=== PATIENT | female | born 1965 | race Caucasian/White ===

== ENCOUNTER 2017-11-02 08:34 | Emergency (ER) | payer SELFPAY | END 2017-11-02 09:16 | disposition home or self-care (01) | PROVIDERS: Emergency Provider Emergency Medicine; PCP Physician Assistant; Visit Provider Emergency Medicine | DX: M79.641 Pain in right hand (principal); T73.3XXA Exhaustion due to excessive exertion, initial encounter | CPT/HCPCS: 99282 ==

== ENCOUNTER → 2018-01-29 07:51 | Outpatient (CLI) | payer OTHER, SELFPAY ==
[2018-01-29 09:00] LABS: Alanine Aminotransferase 37 IU/L (9-52); Albumin 4.4 g/dL (3.5-5.0); Albumin Globulin Ratio 1.6 (1.0-2.8); Alkaline Phosphatase 34 U/L (38-126); Aspartate Aminotransferase 30 IU/L (14-36); Bilirubin Total 0.9 mg/dL (0.2-1.3); Blood Urea Nitrogen 17 mg/dL (7-17); Calcium 9.6 mg/dL (8.4-10.2); Carbon Dioxide 29 mmol/L (22-32); Chloride 105 mmol/L (98-107); Cholesterol 219 mg/dL (140-199); Estimated Glomerular Filt Rate > 60.0 mL/min (>60); Globulin 2.8 g/dL (1.7-4.1); Glucose 91 mg/dL (70-100); HDL Cholesterol 59 mg/dL (40-60); HEMOLYSIS < 15 (0-50); LDL Cholesterol Calculated 148 mg/dL (<100); Potassium 3.9 mmol/L (3.4-5.1); Sodium 143 mmol/L (137-145); Total Protein 7.2 g/dL (6.3-8.2); Triglycerides 62 mg/dL (35-150)
[2018-01-29 10:01] LABS: Thyroid Stimulating Hormone 1.42 uIU/mL (0.47-4.68)
== END ==
PROVIDERS: PCP Physician Assistant; Visit Provider Physician Assistant
DX: Z82.49 Family history of ischemic heart disease and other diseases of the circulatory system (principal)
CPT/HCPCS: 36415; 80053; 80061; 84443

== ENCOUNTER → 2018-02-05 13:18 | Outpatient (CLI) | payer OTHER, SELFPAY ==
--- NOTE | 2018-02-05 13:20 | DI.MG.S_ITS ---
BILATERAL DIGITAL DIAGNOSTIC MAMMOGRAM 3D/2D: 02/05/2018 CLINICAL: Right breast mass. Comparison is made to exams dated: 11/21/2016 mammogram, 12/16/2014 mammogram, and 08/26/2013 mammogram - [facility]. The tissue of both breasts is extremely dense, which lowers the sensitivity of mammography. There is a 1.1 cm oval equal density mass with an obscured and circumscribed margin in the right breast at 11 o'clock anterior depth. This correlates as palpated. No other significant masses, calcifications, or other findings are seen in either breast. IMPRESSION: INCOMPLETE: NEEDS ADDITIONAL IMAGING EVALUATION The 1.1 cm oval equal density mass in the right breast is indeterminate. An ultrasound is recommended. This exam was interpreted at Station ID: [id number]. NOTE: For mammograms, a report in lay terms will be sent to the patient. Approximately 15% of breast malignancies will not be visualized mammographically. In the management of a palpable breast mass, a negative mammogram must not discourage biopsy of a clinically suspicious lesion. Electronically Signed By: Ajay kwan/junior:02/05/2018 16:54:09 copy to: PHIL SIDDIQI BI-RADS Category 0: Incomplete [id number]
--- NOTE | 2018-02-05 13:20 | DI.US.S_ITS ---
ULTRASOUND OF RIGHT BREAST: 02/05/2018 CLINICAL: Palpable right breast lump. Comparison is made to exams dated: 02/05/2018 mammogram, 11/21/2016 mammogram, and 12/16/2014 mammogram - [facility]. Color flow ultrasound of the right breast was performed. Earl scale images of the real-time examination were reviewed. There are multiple benign cysts in the uppr outer right breast some of which correspond to the clinical area of concern. No sonographic evidence of solid mass. IMPRESSION: NEGATIVE There is no sonographic evidence of malignancy. Clinical area of concern corresponds to benign cysts. A 1 year screening mammogram is recommended. This exam was interpreted at Station ID: [id number]. Electronically Signed By: Ajay Tatum M.D. cj/:02/05/2018 16:55:20 copy to: PHIL MONTOYA letter sent: Normal Exam Ultrasound BI-RADS: 1 Negative
== END ==
PROVIDERS: Family Provider Physician Assistant; PCP Physician Assistant; Visit Provider Physician Assistant
DX: R92.8 Other abnormal and inconclusive findings on diagnostic imaging of breast (principal); N60.01 Solitary cyst of right breast; N64.4 Mastodynia
CPT/HCPCS: 76642; 77066; G0279

== ENCOUNTER → 2018-05-24 07:35 | Outpatient (CLI) | payer OTHER, SELFPAY ==
[2018-05-24 10:52] LABS: Vitamin D 25 Hydroxy (D3) 23.8 ng/mL (30.0-100.0)
[2018-05-24 12:15] LABS: Aspartate Aminotransferase 23 IU/L (14-36); Cholesterol 152 mg/dL (140-199); HDL Cholesterol 63 mg/dL (40-60); LDL Cholesterol Calculated 78 mg/dL (<100); Triglycerides 55 mg/dL (35-150)
[2018-05-24 13:02] LABS: Vitamin B12 520 pg/mL (239-931)
== END ==
PROVIDERS: Family Provider Physician Assistant; PCP Physician Assistant; Visit Provider Physician Assistant
DX: E56.9 Vitamin deficiency, unspecified (principal); R10.13 Epigastric pain; R53.1 Weakness; R53.83 Other fatigue; E78.5 Hyperlipidemia, unspecified
CPT/HCPCS: 36415; 80061; 82306; 82607; 84450

== ENCOUNTER → 2019-08-12 15:40 | Outpatient (CLI) | payer OTHER, SELFPAY ==
--- NOTE | 2019-08-12 15:43 | DI.CT.S_ITS ---
PROCEDURE: CT HEAD/BRAIN WO CON INDICATIONS: Frequent headaches - hx of AV malformation brain TECHNIQUE: Noncontrast 4.5 mm thick angled axial sections acquired from the foramen magnum to the vertex, with coronal and sagittal reformats. For radiation dose reduction, the following was used: automated exposure control, adjustment of mA and/or kV according to patient size. COMPARISON: [facility], CT, HEAD WITHOUT CONTRAST, 01/13/2010, 14:36. FINDINGS: Image quality: Excellent. CSF spaces: Basal cisterns are patent. No extra-axial fluid collections. The ventricles are symmetric in size and shape. Brain: No intracranial bleeds or masses. There is cerebral volume loss for age, with resultant ventricular and sulcal prominence. There are periventricular and deep white matter chronic small vessel ischemic changes. There is intracranial internal carotid artery atherosclerosis. Skull and face: Calvarium and visualized facial bones appear intact, without suspicious lesions. Sinuses: Visualized sinuses and mastoids are clear. IMPRESSION: No acute intracranial process. Dictated by: Evangelista Leon M.D. on 08/12/2019 at 16:45 Approved by: Evangelista Leon M.D. on 08/12/2019 at 16:47
== END ==
PROVIDERS: Family Provider Physician Assistant; PCP Physician Assistant; Visit Provider Physician Assistant
DX: R51 Headache (principal); Z87.74 Personal history of (corrected) congenital malformations of heart and circulatory system
CPT/HCPCS: 70450

== ENCOUNTER → 2020-10-04 11:06 | Outpatient (CLI) | payer OTHER, SELFPAY ==
--- NOTE | 2020-10-04 11:07 | DI.RAD.S_ITS ---
PROCEDURE: XR SHOULDER LT MIN 2V INDICATIONS: Progressive left shoulder pain TECHNIQUE: 3 views of the shoulder were acquired. COMPARISON: [facility], RG, XR CXR 2 VIEW, 01/17/2005, 14:50. [facility], JASPER, CHEST 2 VIEW, 07/31/2007, 10:17. FINDINGS: Bones: No fractures or dislocations. No suspicious bony lesions. Visualized ribs appear intact. Note is made of what appears to be a small calcific focus of bursitis within the lateral subacromial/subdeltoid bursal space. This measures up to 9 mm by 3 mm. Soft tissues: No suspicious soft tissue calcifications. IMPRESSION: No acute trauma found. 9 x 3 mm calcific bursitis appears present lateral to the upper margin of the left humeral head. Dictated by: Pollo Perera M.D. on 10/04/2020 at 13:40 Approved by: Pollo Perera M.D. on 10/04/2020 at 13:44
== END ==
PROVIDERS: Family Provider Physician Assistant; PCP Family Medicine; Referring Provider Family Medicine; Visit Provider Family Medicine
DX: M25.512 Pain in left shoulder (principal)
CPT/HCPCS: 73030

== ENCOUNTER → 2021-01-04 11:43 | Outpatient (CLI) | payer OTHER, SELFPAY ==
--- NOTE | 2021-01-04 11:45 | DI.MRI.S_ITS ---
PROCEDURE: MR SHOULDER RT WO CON INDICATIONS: on going right shoulder pain TECHNIQUE: Noncontrast oblique coronal T2 fast spin echo with fat saturation, oblique sagittal T1 spin echo and T2 fast spin echo with fat saturation, axial T1 spin echo and T2 fast spin echo with fat saturation through the shoulder. COMPARISON: [facility], MR, MR SHOULDER LT WO CON, 01/04/2021, 12:47. FINDINGS: Image quality: Excellent. Rotator cuff: Tendinosis and low to moderate grade articular and bursal surface partial thickness tear involving distal supraspinatus and infraspinatus at their insertion on the humeral head is seen extending to musculotendinous junction. Distal subscapularis tendon is intact. Sagittal images demonstrate mild supraspinatus muscle atrophy. Bones and bursae: No bone marrow contusions or fractures. Moderate acromioclavicular joint osteoarthritic changes are seen with downward osteophyte formation depressing the musculotendinous junction of supraspinatus. Small to moderate amount of subacromial subdeltoid bursal fluid is seen. Capsule and soft tissues: Labrum is grossly intact. The glenohumeral ligaments are intact. The long head of the biceps tendon demonstrates normal location and morphology. The rotator interval appears normal, without fibrosis. The coracohumeral ligament is normal in thickness. IMPRESSION: 1. Tendinosis and low to moderate grade articular and bursal surface partial thickness tear involving distal supraspinatus and infraspinatus extending to musculotendinous junction. Mild supraspinatus muscle atrophy. 2. Moderate acromioclavicular joint osteoarthritis. Small to moderate amount of joint effusion and subacromial subdeltoid bursal fluid. 3. No evidence of focal labral tear. Dictated by: Toni Cordova M.D. on 01/04/2021 at 13:52 Approved by: Toni Cordova M.D. on 01/04/2021 at 13:54
--- NOTE | 2021-01-04 11:45 | DI.MRI.S_ITS ---
PROCEDURE: MR SHOULDER LT WO CON INDICATIONS: left shoulder pain TECHNIQUE: Noncontrast oblique coronal T2 fast spin echo with fat saturation, oblique sagittal T1 spin echo and T2 fast spin echo with fat saturation, axial T1 spin echo and T2 fast spin echo with fat saturation through the shoulder. COMPARISON: [facility], CR, XR SHOULDER LT MIN 2V, 10/04/2020, 11:11. FINDINGS: Image quality: Excellent. Rotator cuff: Tendinosis and low to moderate grade articular and bursal surface partial thickness tear involving distal supraspinatus at its insertion on the humeral head extending to musculotendinous junction is seen. Calcification involving distal supraspinatus at its insertion on the humeral head is noted consistent with calcific tendinitis. Distal infraspinatus tendinosis is also noted at its insertion on the humeral head. Distal subscapularis tendon is intact. No full-thickness rotator cuff tendon rupture. Sagittal images demonstrate no significant muscle atrophy. Bones and bursae: No bone marrow contusions or fractures. Mild to moderate acromioclavicular joint osteoarthritic changes are seen with downward osteophyte formation depressing on musculotendinous junction of supraspinatus. No pathologic subacromial-subdeltoid or subcoracoid bursal fluid is present. Capsule and soft tissues: Labrum is grossly intact. Glenohumeral ligaments are intact. The long head of the biceps tendon demonstrates normal location and morphology. The rotator interval appears normal, without fibrosis. The coracohumeral ligament is normal in thickness. IMPRESSION: 1. Tendinos and low-grade articular and bursal surface partial thickness tear involving distal supraspinatus at its insertion on the humeral head extending to musculotendinous junction. Suggestion of calcific tendinitis involving distal supraspinatus at its insertion on the humeral head. No full-thickness rotator cuff tendon rupture. No muscle atrophy. Distal infraspinatus tendinosis. 2. Mild to moderate acromioclavicular joint osteoarthritis. No fracture or dislocation. No significant joint effusion or subacromial subdeltoid bursal fluid. 3. No focal labral tear. Dictated by: Toni Cordova M.D. on 01/04/2021 at 13:39 Approved by: Toni Cordova M.D. on 01/04/2021 at 13:48
== END ==
PROVIDERS: Family Provider Physician Assistant; PCP Family Medicine; Referring Provider Family Medicine; Visit Provider Family Medicine
DX: M25.511 Pain in right shoulder (principal); M25.512 Pain in left shoulder; M19.012 Primary osteoarthritis, left shoulder; M19.011 Primary osteoarthritis, right shoulder; M75.112 Incomplete rotator cuff tear or rupture of left shoulder, not specified as traumatic; M75.111 Incomplete rotator cuff tear or rupture of right shoulder, not specified as traumatic; G89.29 Other chronic pain
CPT/HCPCS: 73221

== ENCOUNTER → 2021-10-27 16:30 | Outpatient (CLI) | payer OTHER, MEDICAID, SELFPAY ==
--- NOTE | 2021-10-27 16:32 | DI.RAD.S_ITS ---
PROCEDURE: XR WRIST LT MIN 3V INDICATIONS: progressive wrist pain TECHNIQUE: 4 views of the wrist were acquired. COMPARISON: [facility], CR, XR WRIST RT MIN 3V, 10/27/2021, 16:24. FINDINGS: Bones: No fractures or dislocations. No suspicious bony lesions. Scaphoid view: Intact scaphoid. Soft tissues: No suspicious soft tissue calcifications. IMPRESSION: No definite radiographic abnormality. If pain persists with conservative management, consider cross sectional imaging such as CT or MRI for further assessment. Dictated by: Peter Buitrago [facility] Interpreted: Salima Paredes MD on 10/27/2021 at 16:48 Transcribed by: MARTÍNEZ on 10/27/2021 at 16:49 Approved by: Salima Paredes M.D. on 10/27/2021 at 17:45
--- NOTE | 2021-10-27 16:32 | DI.RAD.S_ITS ---
PROCEDURE: XR WRIST RT MIN 3V INDICATIONS: progressive wrist pain TECHNIQUE: 4 views of the wrist were acquired. COMPARISON: None. FINDINGS: Bones: No fractures or dislocations. No suspicious bony lesions. Scaphoid view: Intact scaphoid. Soft tissues: No suspicious soft tissue calcifications. IMPRESSION: No definite radiographic abnormality. If pain persists with conservative management, consider cross sectional imaging such as CT or MRI for further assessment. Dictated by: Peter Buitrago [facility] Interpreted: Salima Paredes MD on 10/27/2021 at 16:48 Transcribed by: MARTÍNEZ on 10/27/2021 at 16:48 Approved by: Salima Paredes M.D. on 10/27/2021 at 17:45
== END ==
PROVIDERS: PCP Family Medicine; Referring Provider Family Medicine; Visit Provider Family Medicine
DX: M25.531 Pain in right wrist (principal); M25.532 Pain in left wrist; G47.00 Insomnia, unspecified; M25.50 Pain in unspecified joint
CPT/HCPCS: 36415; 73110; 80053; 85025; 85598; 85613; 85651; 86038; 86430

== ENCOUNTER → 2021-10-27 16:46 | Outpatient (CLI) | payer OTHER, MEDICAID, SELFPAY ==
[2021-10-27 18:51] LABS: Add Manual Diff / Slide Review NO; Basophils Absolute Auto 0 /uL (0-100); Basophils Percent Auto 0.5 % (0-2); Eosinophils Absolute Auto 100 /uL (0-450); Hematocrit 35.5 % (36-46); Hemoglobin 12.1 g/dL (12.0-16.0); Lymphocytes Absolute Auto 2100 /uL (1100-4500); Lymphocytes Percent Auto 28.2 % (25-40); Mean Corpuscular HGB Conc 34.2 % (30-36); Mean Corpuscular Hemoglobin 28.8 PG (26-34); Mean Corpuscular Volume 84.1 fL (80-100); Monocytes Absolute Auto 500 /uL (0-900); Monocytes Percent Auto 6.4 % (3-14); Neutrophils Absolute Auto 4600 /uL (1500-7000); Neutrophils Percent Auto 62.9 % (50-75); Platelet Count 223 X10^3/uL (150-400); Red Blood Cell Count 4.22 X10^6/uL (4.0-5.2); Red Cell Distribution Width 13.3 % (11.6-14.8); White Blood Cell Count 7.3 X10^3/uL (4.5-11.0)
[2021-10-27 18:52] LABS: Alanine Aminotransferase 20 IU/L (<35); Albumin 4.7 g/dL (3.5-5.0); Albumin Globulin Ratio 1.6 (1.0-2.8); Alkaline Phosphatase 45 U/L (38-126); Aspartate Aminotransferase 32 IU/L (14-36); BUN Creatinine Ratio 19.3 (6-22); Bilirubin Total 0.5 mg/dL (0.2-1.3); Blood Urea Nitrogen 17 mg/dL (7-17); Calcium 9.6 mg/dL (8.4-10.2); Carbon Dioxide 29 mmol/L (22-32); Chloride 101 mmol/L (98-107); Estimated Glomerular Filt Rate > 60 mL/min (>60); Globulin 2.9 g/dL (1.7-4.1); Glucose 91 mg/dL (70-100); HEMOLYSIS < 15 (0-50); Potassium 3.8 mmol/L (3.4-5.1); Sodium 139 mmol/L (137-145); Total Protein 7.6 g/dL (6.3-8.2)
[2021-10-27 18:56] LABS: Rheumatoid Factor < 8.6 IU/mL (<12.0)
[2021-10-27 20:09] LABS: Erythrocyte Sedimentation Rate 16 MM/HR (0-20)
[2021-10-31 19:28] LABS: ANA Screen, IFA Negative (.)
[2021-11-02 13:03] LABS: Dilute Russell Viper Venom 37.4 sec (0.0-47.0); Lupus Reflex Interpretation Comment: (.)
== END ==
PROVIDERS: PCP Family Medicine; Referring Provider Family Medicine; Visit Provider Family Medicine
DX: G47.00 Insomnia, unspecified (principal); M25.50 Pain in unspecified joint
CPT/HCPCS: 36415; 80053; 85025; 85598; 85613; 85651; 86038; 86430

== ENCOUNTER → 2022-01-27 13:59 | Outpatient (CLI) | payer OTHER, MEDICAID, SELFPAY ==
--- NOTE | 2022-01-27 14:01 | DI.RAD.S_ITS ---
PROCEDURE: XR KNEE LT 3V INDICATIONS: Left knee pain TECHNIQUE: 3 views of the knee were acquired. COMPARISON: None. FINDINGS: Bones: No fractures or dislocations. No suspicious bony lesions. Soft tissues: No joint effusion. No suspicious soft tissue calcifications. IMPRESSION: No visualized acute fracture or dislocation. However, if clinical concern and/or pain persist, short interval imaging followup in 7-10 days is recommended, as occult injury cannot be definitively excluded. Dictated by: Salima Paredes M.D. on 01/27/2022 at 16:06 Approved by: Salima Paredes M.D. on 01/27/2022 at 16:06
== END ==
PROVIDERS: PCP Family Medicine; Referring Provider Family Medicine; Visit Provider Family Medicine
DX: M25.562 Pain in left knee (principal)
CPT/HCPCS: 73562

== ENCOUNTER → 2022-05-08 11:31 | Outpatient (CLI) | payer OTHER, MEDICAID, SELFPAY | PROVIDERS: PCP Family Medicine; Visit Provider Student in an Organized Health Care Education/Training Program | DX: R30.0 Dysuria (principal) | CPT/HCPCS: 87086 ==

== ENCOUNTER → 2022-05-08 12:17 | Outpatient (CLI) | payer OTHER, MEDICAID, SELFPAY ==
[2022-05-08 12:37] LABS: Add Manual Diff / Slide Review NO; Basophils Absolute Auto 100 /uL (0-100); Basophils Percent Auto 0.5 % (0-2); Eosinophils Absolute Auto 0 /uL (0-450); Eosinophils Percent Auto 0.3 % (2-4); Hemoglobin 14.1 g/dL (12.0-16.0); Lymphocytes Absolute Auto 2000 /uL (1100-4500); Lymphocytes Percent Auto 18.2 % (25-40); Mean Corpuscular HGB Conc 34.3 % (30-36); Mean Corpuscular Hemoglobin 29.8 PG (26-34); Mean Corpuscular Volume 86.7 fL (80-100); Monocytes Absolute Auto 700 /uL (0-900); Monocytes Percent Auto 6.1 % (3-14); Neutrophils Absolute Auto 8100 /uL (1500-7000); Neutrophils Percent Auto 74.9 % (50-75); Platelet Count 311 X10^3/uL (150-400); Red Blood Cell Count 4.73 X10^6/uL (4.0-5.2); Red Cell Distribution Width 13.6 % (11.6-14.8); White Blood Cell Count 10.8 X10^3/uL (4.5-11.0)
[2022-05-08 12:54] LABS: Erythrocyte Sedimentation Rate 21 MM/HR (0-20)
[2022-05-08 12:59] LABS: Alanine Aminotransferase 22 IU/L (<35); Albumin 4.7 g/dL (3.5-5.0); Albumin Globulin Ratio 1.3 (1.0-2.8); Alkaline Phosphatase 51 U/L (38-126); Aspartate Aminotransferase 24 IU/L (14-36); BUN Creatinine Ratio 27.7 (6-22); Bilirubin Total 0.6 mg/dL (0.2-1.3); Blood Urea Nitrogen 18 mg/dL (7-17); C-Reactive Protein Quant < 0.5 mg/dL (<1.0); Carbon Dioxide 31 mmol/L (22-32); Chloride 98 mmol/L (98-107); Creatine Kinase < 20 U/L (30-135); Estimated Glomerular Filt Rate > 60 mL/min (>60); Globulin 3.5 g/dL (1.7-4.1); Glucose 109 mg/dL (70-100); HEMOLYSIS < 15 (0-50); Potassium 3.7 mmol/L (3.4-5.1); Sodium 137 mmol/L (137-145); Total Protein 8.2 g/dL (6.3-8.2)
[2022-05-08 13:07] LABS: Troponin I < 0.012 ng/mL (0.01-0.034)
== END ==
PROVIDERS: PCP Family Medicine; Referring Provider Student in an Organized Health Care Education/Training Program; Visit Provider Student in an Organized Health Care Education/Training Program
DX: U07.1 COVID-19 (principal); R35.0 Frequency of micturition; R10.9 Unspecified abdominal pain; R14.0 Abdominal distension (gaseous); R30.0 Dysuria
CPT/HCPCS: 36415; 80053; 81002; 82550; 84484; 85025; 85651; 86140; 87086

== ENCOUNTER → 2022-08-31 16:03 | Outpatient (CLI) | payer BC, SELFPAY ==
--- NOTE | 2022-08-31 16:04 | DI.RAD.S_ITS ---
PROCEDURE: XR SHOULDER LT MIN 2V INDICATIONS: Increasing left shoulder pain, lack of range of motion TECHNIQUE: 3 views of the shoulder were acquired. COMPARISON: [facility], JASPER, XR SHOULDER LT MIN 2V, 10/04/2020, 11:11. FINDINGS: Bones: No fractures or dislocations. No suspicious bony lesions. Visualized ribs appear intact. Small calcific focus in the lateral/subacromial subdeltoid space is seen likely calcific tendinosis. Soft tissues: No suspicious soft tissue calcifications. IMPRESSION: No significant interval change. Calcific tendinosis of the left shoulder. Dictated by: Micky Kerr M.D. on 08/31/2022 at 17:45 Approved by: Micky Kerr M.D. on 08/31/2022 at 17:47
== END ==
PROVIDERS: PCP Family Medicine; Referring Provider Family Medicine; Visit Provider Family Medicine
DX: M25.512 Pain in left shoulder (principal); M75.00 Adhesive capsulitis of unspecified shoulder
CPT/HCPCS: 73030

== ENCOUNTER → 2022-12-01 14:52 | Outpatient (CLI) | payer BC, OTHER, SELFPAY ==
--- NOTE | 2022-12-01 14:55 | DI.RAD.S_ITS ---
PROCEDURE: XR CERVICAL SPINE 4V OR 5V INDICATIONS: Left Cervical Radiculopathy TECHNIQUE: 5 views of the cervical spine were acquired. COMPARISON: None. FINDINGS: Bones: No fractures or dislocations to the T1 level. No suspicious bony lesions. Loss of lordosis which could be related to muscle spasm, rigidity or simply positional. Mild disc height loss with endplate sclerosis and spurring at the C4-C5, C5-C6 and C6-C7 levels. Mild multilevel facet joint arthropathy and uncovertebral hypertrophy There is normal range of motion between flexion and extension, with preserved normal bony alignment. Soft tissues: Prevertebral soft tissues are normal in thickness. IMPRESSION: Loss of lordosis and multilevel cervical spine spondylosis. Dictated by: Peter Buitrago [facility] Interpreted: Salima Paredes MD on 12/01/2022 at 15:06 Transcribed by: MARTÍNEZ on 12/01/2022 at 15:07 Approved by: Salima Paredes M.D. on 12/01/2022 at 16:37
== END ==
PROVIDERS: PCP Family Medicine; Referring Provider Physical Medicine & Rehabilitation; Visit Provider Physical Medicine & Rehabilitation
DX: M54.12 Radiculopathy, cervical region (principal)
CPT/HCPCS: 72050

== ENCOUNTER → 2022-12-10 10:46 | Outpatient (CLI) | payer BC, OTHER, SELFPAY ==
--- NOTE | 2022-12-10 10:49 | DI.MRI.S_ITS ---
PROCEDURE: MR CERVICAL SPINE WO CON INDICATIONS: Left Cervical Radiculopathy TECHNIQUE: Noncontrast sagittal T1 spin echo and T2 fast spin echo, sagittal STIR, foraminal oblique sagittal T2 fast spin echo, and axial gradient echo or T2 fast spin echo through the cervical spine. COMPARISON: [facility], CR, XR CERVICAL SPINE 4V OR 5V, 12/01/2022, 14:53. FINDINGS: Image quality: Excellent. Alignment and Curvature: There is loss of normal cervical lordosis. 2 mm of retrolisthesis of C4 on C5 and C5 on C6. Bone Marrow: Marrow demonstrates normal overall signal. Mild reactive signal throughout the endplates of the cervical spine. Spinal Cord: Visualized spinal cord has normal size and signal. No cerebellar tonsillar herniation. Paraspinous Soft Tissues: No paravertebral masses. Prevertebral soft tissues are normal in thickness. C2-C3: Moderate disc desiccation. Mild facet and uncovertebral hypertrophy. No canal stenosis. Mild bilateral foraminal stenosis. C3-C4: Moderate disc desiccation. Mild diffuse disc bulge. Mild facet and uncovertebral hypertrophy bilaterally. Moderate canal stenosis. Moderate bilateral foraminal stenosis. C4-C5: Moderate disc desiccation. Mild diffuse disc bulge. Mild facet and uncovertebral hypertrophy bilaterally. Moderate to severe canal stenosis. Mild cord flattening. Severe right and moderate left foraminal stenosis. Right C5 nerve root compression. C5-C6: Moderate disc desiccation. Mild diffuse disc bulge. Mild facet and uncovertebral hypertrophy bilaterally. Moderate canal stenosis. Moderate bilateral foraminal stenosis. C6-C7: Moderate disc desiccation. Mild diffuse disc bulge. Mild facet and uncovertebral hypertrophy. Mild canal stenosis. Mild bilateral foraminal stenosis. C7-T1: Mild disc desiccation. Mild facet and uncovertebral hypertrophy bilaterally. No canal stenosis. Mild bilateral foraminal stenosis. IMPRESSION: 1. Multilevel degenerative disc and facet disease, as well as uncovertebral hypertrophy. 2. Multilevel canal stenoses, worst at C4-C5 where there is mild cord flattening. 3. Multilevel foraminal stenoses, worst at C4-C5 where there is associated intraforaminal nerve root compression. Recommend correlation with clinical symptoms to ascertain relevance of this finding. Dictated by: Allison Ma M.D. on 12/12/2022 at 10:45 Approved by: Allison Ma M.D. on 12/12/2022 at 10:48
== END ==
PROVIDERS: PCP Family Medicine; Referring Provider Physical Medicine & Rehabilitation; Visit Provider Physical Medicine & Rehabilitation
DX: M54.12 Radiculopathy, cervical region (principal); M50.31 Other cervical disc degeneration, high cervical region; M48.02 Spinal stenosis, cervical region; M47.812 Spondylosis without myelopathy or radiculopathy, cervical region
CPT/HCPCS: 72141

== ENCOUNTER 2023-01-02 07:49 | Outpatient (CLI) | payer BC, OTHER, SELFPAY ==
[2023-01-02] VITALS (9 sets, daily range): BP systolic 110–129; BP diastolic 61–77; PULSE 68–76; RESP 12–20; TEMP 36.8; O2SAT 94–99
--- NOTE | 2023-01-02 07:51 | DI.RAD.S_ITS ---
PROCEDURE: PAIN C/T INTERLAMINAR INJECT INDICATIONS: SPINAL STENOSIS COMPARISON: [facility], CR, XR CERVICAL SPINE 4V OR 5V, 12/01/2022, 14:53. FINDINGS: Fluoroscopic spot filming was performed to verify placement of spinal needles at the C6-7 epidural space, as labeled on the films. Appropriate location of the needle tip was confirmed by injection of iodinated contrast. IMPRESSION: Intraprocedural examination demonstrates appropriate needle position. Approved by: Isidro Nunez M.D. on 01/02/2023 at 12:49
[2023-01-02] MEDS: DEXAMETHASONE 10 MG/ML VIAL 30 MG INJ (09:48)
[2023-01-02] MEDS: BUPIVACAINE 0.25% (PF) VIAL 2 ML INJ (09:48)
[2023-01-02] MEDS: MIDAZOLAM 2 MG/2 ML VIAL 4 MG IV (09:49)
[2023-01-02] MEDS: IOPAMIDOL 15 ML VIAL 3 ML INJ (09:49)
--- NOTE | 2023-01-02 10:01 | P.PCN_ITS ---
Date/Time/Diagnoses Date of procedure: 01/02/23 Time of procedure: 10:01 Pre-procedure diagnosis: 1. CERVICAL STENOSIS, 2. CERVICAL HNP WITH UPPER EXTREMITY RADICULAR FEATURES Post-procedure diagnosis: same Procedure Notes Procedure: 1. FLUORSCOPICALLY GUIDED CONTRAST CONTROLLED INTERLAMINAR EPIDURAL STEROID INJECTION - C6/7 TL GAIL Indications: Lizabeth is referred by Dr. Hawkins for treatment of Cervical HNP with Upper Extremity Paresthesias. Physician: Jorge Hanson Total Fluoroscopy time (seconds): 34 Total sedation minutes: 14 Complications: none Procedure in detail & Post-procedure care: FINDINGS Cervical Stenosis due to disc deterioration and nerve root irritation and nerve root irritation DESCRIPTION OF PROCEDURE Fluoroscopically guided, contrast-controlled C6/7 translaminar epidural steroid injection with conscious sedation. Following review of allergy and review of potential side effects and complications, including, but not necessarily limited to, infection, allergic reaction, local tissue breakdown, temporary as well as permanent nerve injury, stroke, paralysis, and possible , the patient indicated that patient understood and agreed to proceed. An informed consent document was signed by the patient, witnessed by a nurse, and placed in the patient's chart. Additionally, other treatment options including modalities, medications, and physical therapy were reviewed with the patient. After review of previous anaesthesic history and IV conscious sedation the patient was deemed safe to proceed with today?s procedure with IV conscious se dation as ASA class II designation. Safety time-out was performed to confirm patient ID, procedure to be performed and site of procedure. IV sedation was accomplished with a combination of 2mg of Versed administered by the RN after DO order, titrated to patient comfort during the course of the procedure while the patient remained responsive to all verbal commands. In the prone position, following sterile prep and drape of the cervical region, the C6/7 translaminar space was identified fluoroscopically. The skin was anesthetized via a 25-gauge 1.5-inch needle with 1% lidocaine solution. At this point, a 25-gauge, 2.5-inch short bevel spinal needle was atraumatically introduced and advanced under fluoroscopic guidance into epidural space at the C6/7 translaminar space. Depth was confirmed on lateral view. Radiological data, including multiple fluoroscopic views of the cervical spine, reveal a spinal needle at the C6/7 translaminar space. Lateral views then show placement of the needle in the epidural space. Subsequent views show contrast material flowing superiorly and inferiorly in the epidural space. DSA fluoroscopy with live contrast injection, once again, confirmed no vascular or intrathecal uptake. At this point, using loss of resistance technique with saline and air, the epidural space was entered. Following negative aspiration, injection of approximately 1.5 cc of Isovue-200 with live fluoroscopy in the AP view confirmed epidural flow in the epidural space without vascular or intrathecal uptake observed. Subsequently, a test dose of 1 cc of 1% lidocaine solution was injected and patient was observed for two minutes without signs or symptoms of complications, including abdominal pain, shortness of breath, bilateral upper or lower extremity weakness, nausea and vomiting, prior to steroid injection. At this point, 3cc or 30mg of dexamethasone was then injected without incident. The patient tolerated the procedure well without signs or symptoms of c omplications prior to being transferred to the recovery area for further monitoring, The patient was then transferred to the recovery area where they were observed for an appropriate period of time after the injection. The patient reported a VAS score of 6 prior to the procedure and a post-procedure VAS of 0. POST OP INSTRUCTIONS The patient was provided a Pain Log to continue to record their response to the target-specific procedure prior to follow-up visit with the referring provider. Additionally, specific post-injection care instructions and a contact number to our office were provided if concerns arise regarding possible complications associated with the procedure are suspected.
== END 2023-01-02 10:25 | disposition home or self-care (01) ==
LOC: RAD 07:50
PROVIDERS: PCP Family Medicine; Referring Provider Physical Medicine & Rehabilitation; Visit Provider Physical Medicine & Rehabilitation
DX: M48.02 Spinal stenosis, cervical region (principal); M50.123 Cervical disc disorder at C6-C7 level with radiculopathy
CPT/HCPCS: 62321; 99152; J1100; J2250; J3490

== ENCOUNTER 2023-07-13 12:21 | Emergency (ER) | payer OTHER, MEDICAID, SELFPAY ==
[2023-07-13] VITALS (16 sets, daily range): BP systolic 95–131; BP diastolic 53–74; PULSE 61–88; RESP 12–24; TEMP 36.4; O2SAT 91–97; BMI 23.5
--- NOTE | 2023-07-13 12:34 | DI.RAD.S_ITS ---
PROCEDURE: XR CHEST 1V INDICATIONS: chest pain TECHNIQUE: One view of the chest was acquired. COMPARISON: None. FINDINGS: Surgical changes and devices: None. Lungs and pleura: Lungs are clear. No pleural effusions or pneumothorax. Mediastinum: Mediastinal contours appear normal. Heart size is normal. Bones and chest wall: No suspicious bony lesions. Overlying soft tissues appear unremarkable. IMPRESSION: No acute cardiopulmonary abnormality is seen. Dictated by: Pollo Perera M.D. on 07/13/2023 at 13:09 Approved by: Pollo Perera M.D. on 07/13/2023 at 13:10
[2023-07-13] MEDS: ASPIRIN 81 MG CHEW TAB 324 MG PO (12:38)
[2023-07-13 13:48] LABS: Add Manual Diff / Slide Review NO; Basophils Absolute Auto 100 /uL (0-100); Basophils Percent Auto 0.9 % (0-2); Eosinophils Absolute Auto 100 /uL (0-450); Eosinophils Percent Auto 1.1 % (2-4); Hematocrit 36.9 % (36-46); Hemoglobin 12.6 g/dL (12.0-16.0); Lymphocytes Absolute Auto 2700 /uL (1100-4500); Lymphocytes Percent Auto 37.7 % (25-40); Mean Corpuscular HGB Conc 34.1 % (30-36); Mean Corpuscular Hemoglobin 29.4 PG (26-34); Mean Corpuscular Volume 86.1 fL (80-100); Monocytes Absolute Auto 500 /uL (0-900); Monocytes Percent Auto 7.5 % (3-14); Neutrophils Absolute Auto 3800 /uL (1500-7000); Neutrophils Percent Auto 52.8 % (50-75); Platelet Count 245 X10^3/uL (150-400); Red Blood Cell Count 4.28 X10^6/uL (4.0-5.2); Red Cell Distribution Width 13.7 % (11.6-14.8); White Blood Cell Count 7.2 X10^3/uL (4.5-11.0)
[2023-07-13 13:56] LABS: Prothrombin Time 11.3 SECONDS (9.4-12.5)
[2023-07-13 13:58] LABS: PTT Partial Thromboplastin Tim 26 SECONDS (25.1-36.5)
[2023-07-13 13:59] LABS: Alanine Aminotransferase 19 IU/L (<35); Albumin 4.2 g/dL (3.5-5.0); Albumin Globulin Ratio 1.4 (1.0-2.8); Alkaline Phosphatase 40 U/L (38-126); Aspartate Aminotransferase 25 IU/L (14-36); BUN Creatinine Ratio 20.9 (6-22); Bilirubin Total 0.5 mg/dL (0.2-1.3); Blood Urea Nitrogen 14 mg/dL (7-17); Calcium 9.8 mg/dL (8.4-10.2); Carbon Dioxide 31 mmol/L (22-32); Chloride 102 mmol/L (98-107); Creatine Kinase 26 U/L (30-135); Estimated Glomerular Filt Rate > 60 mL/min (>60); Globulin 2.9 g/dL (1.7-4.1); Glucose 121 mg/dL (70-100); HEMOLYSIS < 15 (0-50); Lipase 244 U/L (23-300); Magnesium 1.9 mg/dL (1.6-2.3); Potassium 3.4 mmol/L (3.4-5.1); Sodium 139 mmol/L (137-145); Total Protein 7.1 g/dL (6.3-8.2)
[2023-07-13 14:10] LABS: Troponin I < 0.012 ng/mL (0.01-0.034)
[2023-07-13] MEDS: SODIUM CHLORIDE 0.9% 1,000 ML 1000 ML IV (15:35)
[2023-07-13] MEDS: ONDANSETRON 4 MG/2 ML INJ IV (15:35)
[2023-07-13] MEDS: KETOROLAC 30 MG/ML VIAL 15 MG IV (15:35)
[2023-07-13 16:01] LABS: Troponin I < 0.012 ng/mL (0.01-0.034)
--- NOTE | 2023-07-13 19:04 | PC.NURSE ---
Multiple attempts to retain pt for MD eval including food, update on wait ([address] Farfan's arrival) and offer to fill other needs. pt declined and signed out left without being seen.
== END 2023-07-13 17:53 | disposition left against medical advice (07) ==
PROVIDERS: Emergency Provider Emergency Medicine; Family Provider Family Medicine; PCP Family Medicine
DX: R00.2 Palpitations (principal); R07.9 Chest pain, unspecified; R20.0 Anesthesia of skin
CPT/HCPCS: 36415; 71045; 80053; 81003; 82550; 83690; 83735; 84484; 85025; 85610; 85730; 93005; 96361; 96374; 96375; 99284; J1885; J2405

== ENCOUNTER 2023-08-29 13:00 | Outpatient (RCR) | payer OTHER, MEDICAID, SELFPAY ==
--- NOTE | 2023-04-19 12:17 | PT.OIE ---
Current Diagnoses Cervicalgia (04/19/23) Incomplete rotator cuff tear or rupture of left shoulder, not specified as traumatic (04/19/23) Abnormal posture (04/19/23) Weakness (04/19/23) Past Medical History (Last Reviewed 01/31/23 @ 10:58 by Jeffrey Hawkins DO) Adhesive capsulitis Anxiety (Unknown) Bilateral shoulder pain Bilateral wrist pain Cervical radiculopathy at C6 Depression (Unknown) Disorder of left rotator cuff Generalized anxiety disorder GERD (gastroesophageal reflux disease) Herpes (Unknown) IBS (irritable bowel syndrome) Impingement syndrome of left shoulder Insomnia Joint pain Knee pain Lateral knee pain Left shoulder pain Ovarian mass PMR (polymyalgia rheumatica) Wrist pain, right (Unknown) Past Surgical History (Last Reviewed 01/31/23 @ 10:58 by Jeffrey Hawkins DO) History of ankle surgery (1979) History of carpal tunnel release (1993) Hx of hysterectomy (1993) Scar tissue (1989) Visit Care Team Role Provider Type Crispin Reina MD Other Providers Non-Staff Specialty: Orthopedic Surgery Address: [address] [place] [address], [id number] Email: Jeffrey Hawkisn DO Family Provider Physician Primary Care Provider Specialty: Family Practice Address: [address] [place] [address], [phone] Email: [email or web address] Jeffrey Gutierres PA-C Attending Provider Non-Staff Referring Provider Specialty: Medical Address: [address] [place] [address], [phone] Phone: Email: Physical Therapy Initial Evaluation PT-OP-A Visit Information Start: 04/04/23 15:19 Freq: Status: Active Protocol: Document 04/19/23 10:14 [facility] (Rec: 04/19/23 11:38 [facility] [id number]) Out-Patient Physical Therapy Visit Information Visit Information Visit Type Initial Evaluation Visit Start Time 10:50 Visit Stop Time 11:30 Total Visit Minutes 40 Visit Number 08/08 Number of MANUFACTURING STOREPERSON Visits 0 PT-OP-B Current Condition Start: 04/04/23 15:19 Freq: Status: Active Protocol: Document 04/19/23 10:14 [facility] (Rec: 04/19/23 11:38 [facility] [id number]) Current Condition History of Current Condition Onset Date 03/26 Current Complaints L shoulder arthroscopic debridement and History of Current Condition Pt reports shoulder surgery 06/07. Pt reports she started taking the sling off at home and reached accidently to take chavez and the shoulder was very painful after that. This was about 2 weeks out and she called the doctor and she talked to them. It was keeping her awake at night after this . Hydrocodone did work. Today she hasn't taken one yet. 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 She did PT and that helped the R and the pain is slowly coming back. She also had a MRI from Dr. Topete and there was notable cervical stenosis and in December did injections in her neck. That really helped the neck. 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 She had a scar tissue removal in [facility]. She is pretty much retired at this point d/t pain . next follow up w/MD is may 08. Pt has the sling off all day (per MD) at home. She slept w/o it for the first time last night and slept on the couch. She rolled over onto it last night and that did wake her up. Treatment Goals Patient/Caregiver Goals be able to garden, do crafts, get dressed, clean, be able to do her hair, ride a bike and kayak PT-OP-C Subjective Start: 04/04/23 15:19 Freq: Status: Active Protocol: Document 04/19/23 10:14 [facility] (Rec: 04/19/23 11:38 [facility] [id number]) Patient Questionnaires Quick Dash- Upper Extremity Quick Dash UE Score 75 PT-OP-F Manual Assessment Start: 04/04/23 15:19 Freq: Status: Active Protocol: Document 04/19/23 10:14 [facility] (Rec: 04/19/23 11:38 [facility] [id number]) Manual Assessments Soft Tissue Assessment Soft Tissue Mobility Assessment 4 good healing incisions; most last one most sensative; all have signfiicant tension Joint Mobility Assessment Joint Mobility Assessment 1st rib on L elevated PT-OP-J Posture/Palpation/Skin Start: 04/04/23 15:19 Freq: Status: Active Protocol: Document 04/19/23 10:14 [facility] (Rec: 04/19/23 11:38 [facility] [id number]) Posture Evaluation Comments Posture Comments humerus ant L>R in glenoid; L scap more abd, ant tipped and elevated PT-OP-K Range of Motion Start: 04/04/23 15:19 Freq: Status: Active Protocol: Document 04/19/23 10:14 [facility] (Rec: 04/19/23 11:38 [facility] [id number]) Cervical Spine Range of Motion Cervical Spine Active Degrees Flexion 41 Extension 50 Rotation Left 52 Rotation Right 71 Lateral Flexion Left 44 Lateral Flexion Right 40 Comments discomfort w/flex, ext, L rot Shoulder Goniometric Range of Motion Shoulder Left Active Flexion 24 Extension 43 Abduction 19 External Rotation at 0 degrees Abduction 30 Internal Rotation Behind Back (text) L4 Comments pain w/flex and abd, ER and IR Right Active Flexion 161 Extension 76 Abduction 180 External Rotation at 90 degrees 83 Abduction External Rotation at 0 degrees Abduction 73 Internal Rotation Behind Back (text) T5 Left Passive Flexion 83 Abduction 19 External Rotation at 0 degrees Abduction 23 Internal Rotation 51 Comments pain w/all; abd worst; IR at side PT-OP-Q Treatments Start: 04/04/23 15:19 Freq: Status: Active Protocol: Document 04/19/23 10:14 [facility] (Rec: 04/19/23 11:38 [facility] [id number]) Therapeutic Exercises Supine Exercises flex Supine Exercise Name chest press AAROM Side left Equipment Used cane Reps/Minutes 10 ER Supine Exercise Name cane AAROM Side left Reps/Minutes 10 Standing Exercises pendulum Standing Exercise Name 1. fwd/back 2. circles B Side left Reps/Minutes 5 ea direction walk away Standing Exercise Name hands on counter Side bilateral Reps/Minutes 10 sec x8 ext Standing Exercise Name AAROM Side left Equipment Used cane Reps/Minutes 10 PT-OP-T Assessment and Plan Start: 04/04/23 15:19 Freq: Status: Active Protocol: Document 04/19/23 10:14 [facility] (Rec: 04/19/23 11:38 [facility] [id number]) Physical Therapy Assessment Rehab Potential Rehabilitation Potential Good Evaluation Complexity Number of Personal Factors/Comorbidities 3 or More Number of Body Systems Impaired 4 or More Clinical Presentation at Evaluation Evolving Impairments Impairments Activity Tolerance,Functional Activities,Functional Mobility ,Gait,Pain,Posture,ROM,Soft Tissue Mobility,Strength Goals strength Short Term Goal (STG) Pt will be indep w/HEP STG Duration 05/30/23 Contracts Advisor Goal (LTG) Pt will score at least 4/5 MMT on LUE to show good strength in order for pt to be able to do typical active lifestyle. LTG Duration 07/12 activities Short Term Goal (STG) Pt will hve no pain w/cooking and dressing/bathing. 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 LTG Duration 07/12/23 ROM Short Term Goal (STG) Pt will have full PROM of L shoulder w/min discomfort STG Duration 05/30/23 Contracts Advisor Goal (LTG) Pt will have full AROM of L shoulder and neck w/o inc pain in order to allow greater ease w/ADLs LTG Duration 07/12/23 Quick dash Impairment 75 Short Term Goal (STG) Pt will improve quick dash score to no greater than 50 to show improved functional ability. STG Duration 05/30/23 Contracts Advisor Goal (LTG) Pt will improve quick dash score to no greater than 20 to show improved functional ability. LTG Duration 07/12/23 Assessment Summary Assessment Pt presents 3.5 weeks s/p subacromial decompression and debridement of L shoulder. SHe has signficiant pain w/active movement and has history of pain for 4 years w/ unsuccessful PT. She has history of R houlder pain along w/neck pain and radiculopathy. She has good healing of her incisions, but she is very sensative to touch on all especially most lat. She has very limited AROM and PROM of L shoudler with significant pain along w/some limit in cervical ROM that causes pull into L shoulder. Pt would benefit from skilled PT to progress per protocol and advance Pt's ROM and strength as tolerated in order to return her to high level activities. Physical Therapy Plan Frequency and Duration Frequency of Treatment 2x/Week Duration of treatment (weeks) 12 Plan of Care Start Date 04/19/23 Plan of Care End Date 07/12/23 Therapeutic Interventions Therapeutic Interventions Gait Training,Home Exercise Program,Joint Mobilizations, Manual Therapy,Neuromuscular Re-education,Orthotic/ Prosthetic Management,Patient/ Caregiver Education,Self-Care/ Home Management,Soft Tissue Mobilization,Taping, Therapeutic Activities, Therapeutic Exercises Modalities Cold Pack/Ice Massage,Electric Stimulation,Hot Packs, Infrared Therapy,Ultrasound Next Visit Focus/Plan Next Note Type Treatment Note Next Visit Plan review exercises; gentle PROM, STM to scars, LS & UT, as bruising dec, GH and AC and SC pault nila dang
--- NOTE | 2023-04-19 12:17 | PT.OPPOC ---
Physical, Occupational & Speech Therapy At [facility] Current Diagnoses Cervicalgia (04/19/23) Incomplete rotator cuff tear or rupture of left shoulder, not specified as traumatic (04/19/23) Abnormal posture (04/19/23) Weakness (04/19/23) Visit Care Team Role Provider Type Crispin Reina MD Other Providers Non-Staff Specialty: Orthopedic Surgery Address: [address] [place] [address], [id number] Email: Jeffrey Hawkins DO Family Provider Physician Primary Care Provider Specialty: Family Practice Address: [address] [place] [address], [phone] Email: [email or web address] Jeffrey Gutierres PA-C Attending Provider Non-Staff Referring Provider Specialty: Medical Address: [address] [place] [address], [address] Phone: Email: Plan Of Care PT-OP-T Assessment and Plan Start: 04/04/23 15:19 Freq: Status: Active Protocol: Document 04/19/23 10:14 [facility] (Rec: 04/19/23 11:38 [facility] [id number]) Physical Therapy Assessment Rehab Potential Rehabilitation Potential Good Evaluation Complexity Number of Personal Factors/Comorbidities 3 or More Number of Body Systems Impaired 4 or More Clinical Presentation at Evaluation Evolving Impairments Impairments Activity Tolerance,Functional Activities,Functional Mobility ,Gait,Pain,Posture,ROM,Soft Tissue Mobility,Strength Goals strength Short Term Goal (STG) Pt will be indep w/HEP STG Duration 05/30/23 Repeater Chief Goal (LTG) Pt will score at least 4/5 MMT on LUE to show good strength in order for pt to be able to do typical active lifestyle. LTG Duration 07/12 activities Short Term Goal (STG) Pt will hve no pain w/cooking and dressing/bathing. 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 LTG Duration 07/12/23 ROM Short Term Goal (STG) Pt will have full PROM of L shoulder w/min discomfort STG Duration 05/30/23 Senior Living Goal (LTG) Pt will have full AROM of L shoulder and neck w/o inc pain in order to allow greater ease w/ADLs LTG Duration 07/12/23 Quick dash Impairment 75 Short Term Goal (STG) Pt will improve quick dash score to no greater than 50 to show improved functional ability. STG Duration 05/30/23 Repeater Chief Goal (LTG) Pt will improve quick dash score to no greater than 20 to show improved functional ability. LTG Duration 07/12/23 Assessment Summary Assessment Pt presents 3.5 weeks s/p subacromial decompression and debridement of L shoulder. SHe has signficiant pain w/active movement and has history of pain for 4 years w/ unsuccessful PT. She has history of R houlder pain along w/neck pain and radiculopathy. She has good healing of her incisions, but she is very sensative to touch on all especially most lat. She has very limited AROM and PROM of L shoudler with significant pain along w/some limit in cervical ROM that causes pull into L shoulder. Pt would benefit from skilled PT to progress per protocol and advance Pt's ROM and strength as tolerated in order to return her to high level activities. Physical Therapy Plan Frequency and Duration Frequency of Treatment 2x/Week Duration of treatment (weeks) 12 Plan of Care Start Date 04/19/23 Plan of Care End Date 07/12/23 Therapeutic Interventions Therapeutic Interventions Gait Training,Home Exercise Program,Joint Mobilizations, Manual Therapy,Neuromuscular Re-education,Orthotic/ Prosthetic Management,Patient/ Caregiver Education,Self-Care/ Home Management,Soft Tissue Mobilization,Taping, Therapeutic Activities, Therapeutic Exercises Modalities Cold Pack/Ice Massage,Electric Stimulation,Hot Packs, Infrared Therapy,Ultrasound Next Visit Focus/Plan Next Note Type Treatment Note Next Visit Plan review exercises; gentle PROM, STM to scars, LS & UT, as bruising dec, GH and AC and SC jt jonas [email or web address] Plan of Care Dates Plan of Care Start Date 04/19/23 Plan of Care End Date 07/12/23 Electronically Signed by: Olivia Schroeder, PT 04/19/23 0022 If you are in agreement with this Plan of Care, please return a signed and dated copy. I have reviewed this Plan of Care and certify that the skilled therapy services above are required to meet the patient?s needs. Physician Signature Date Printed Name and Credentials Clinical Instructor Signature Printed Name and Credentials
--- NOTE | 2023-04-23 12:11 | PT.OTN ---
Current Diagnoses Cervicalgia (04/23/23) Incomplete rotator cuff tear or rupture of left shoulder, not specified as traumatic (04/23/23) Abnormal posture (04/23/23) Weakness (04/23/23) Physical Therapy Treatment Note PT-OP-A Visit Information Start: 04/04/23 15:19 Freq: Status: Active Protocol: Document 04/23/23 10:58 [facility] (Rec: 04/23/23 12:10 [facility] [id number]) Out-Patient Physical Therapy Visit Information Visit Information Visit Type Treatment Note Visit Start Time 10:49 Visit Stop Time 11:30 Total Visit Minutes 41 Visit Number 09/08 Number of AGRICULTURAL ENGINEERING TECHNICIANS Visits 0 PT-OP-B Current Condition Start: 04/04/23 15:19 Freq: Status: Active Protocol: Document 04/19/23 10:14 [facility] (Rec: 04/19/23 11:38 [facility] [id number]) Current Condition History of Current Condition Onset Date 03/26 Current Complaints L shoulder arthroscopic debridement and History of Current Condition Pt reports shoulder surgery 06/07. Pt reports she started taking the sling off at home and reached accidently to take chavez and the shoulder was very painful after that. This was about 2 weeks out and she called the doctor and she talked to them. It was keeping her awake at night after this . Hydrocodone did work. Today she hasn't taken one yet. 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 She did PT and that helped the R and the pain is slowly coming back. She also had a MRI from Dr. Topete and there was notable cervical stenosis and in December did injections in her neck. That really helped the neck. 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 She had a scar tissue removal in [facility]. She is pretty much retired at this point d/t pain . next follow up w/ is may 08. Pt has the sling off all day (per MD) at home. She slept w/o it for the first time last night and slept on the couch. She rolled over onto it last night and that did wake her up. Treatment Goals Patient/Caregiver Goals be able to garden, do crafts, get dressed, clean, be able to do her hair, ride a bike and kayak PT-OP-C Subjective Start: 04/04/23 15:19 Freq: Status: Active Protocol: Document 04/23/23 10:58 [facility] (Rec: 04/23/23 12:10 [facility] [id number]) OP-PT Subjective Patient Comments Patient Comments Pt reports migraine for 3 days so she only got the exercises in a couple times. She hasn't had one in 2 years. PT-OP-F Manual Assessment Start: 04/04/23 15:19 Freq: Status: Active Protocol: Document 04/19/23 10:14 [facility] (Rec: 04/19/23 11:38 [facility] [id number]) Manual Assessments Soft Tissue Assessment Soft Tissue Mobility Assessment 4 good healing incisions; most last one most sensative; all have signfiicant tension Joint Mobility Assessment Joint Mobility Assessment 1st rib on L elevated PT-OP-J Posture/Palpation/Skin Start: 04/04/23 15:19 Freq: Status: Active Protocol: Document 04/19/23 10:14 [facility] (Rec: 04/19/23 11:38 [facility] [id number]) Posture Evaluation Comments Posture Comments humerus ant L>R in glenoid; L scap more abd, ant tipped and elevated PT-OP-K Range of Motion Start: 04/04/23 15:19 Freq: Status: Active Protocol: Document 04/19/23 10:14 [facility] (Rec: 04/19/23 11:38 [facility] [id number]) Cervical Spine Range of Motion Cervical Spine Active Degrees Flexion 41 Extension 50 Rotation Left 52 Rotation Right 71 Lateral Flexion Left 44 Lateral Flexion Right 40 Comments discomfort w/flex, ext, L rot Shoulder Goniometric Range of Motion Shoulder Left Active Flexion 24 Extension 43 Abduction 19 External Rotation at 0 degrees Abduction 30 Internal Rotation Behind Back (text) L4 Comments pain w/flex and abd, ER and IR Right Active Flexion 161 Extension 76 Abduction 180 External Rotation at 90 degrees 83 Abduction External Rotation at 0 degrees Abduction 73 Internal Rotation Behind Back (text) T5 Left Passive Flexion 83 Abduction 19 External Rotation at 0 degrees Abduction 23 Internal Rotation 51 Comments pain w/all; abd worst; IR at side PT-OP-Q Treatments Start: 04/04/23 15:19 Freq: Status: Active Protocol: Document 04/23/23 10:58 [facility] (Rec: 04/23/23 12:10 [facility] [id number]) Therapeutic Exercises Supine Exercises flex Supine Exercise Name chest press AAROM Side left Equipment Used cane Reps/Minutes 10 ER Supine Exercise Name cane AAROM Side left Reps/Minutes 10 Sitting Exercises pullys Sitting Exercise Name AAROM flex and scaption Side left Reps/Minutes 10 ea Comments slow movement Standing Exercises pendulum Standing Exercise Name 1. fwd/back 2. circles B 3. side/side Side left Reps/Minutes 5 ea direction walk away Standing Exercise Name 1. flex 2. abd Side bilateral Reps/Minutes 10 sec x5 ea Comments hands on counter ext Standing Exercise Name AAROM Side left Equipment Used cane Reps/Minutes 10 Manual Therapy Treatment Soft Tissue Mobilization superior Body Location L UT, LS, scalenes Mobilization Type Rolling Intensity/Depth Superficial Body Position Hooklying Joint Mobilizations thoracic Comments PA T1-2 FM supine and seated FM ribs Comments PA rib 1 and 2 FM; caudal 1-3 FM PT-OP-T Assessment and Plan Start: 04/04/23 15:19 Freq: Status: Active Protocol: Document 04/23/23 10:58 [facility] (Rec: 04/23/23 12:10 [facility] [id number]) Physical Therapy Assessment Goals strength Short Term Goal (STG) Pt will be indep w/HEP STG Duration 05/30/23 Placement Assistant Goal (LTG) Pt will score at least 4/5 MMT on LUE to show good strength in order for pt to be able to do typical active lifestyle. LTG Duration 07/12 activities Short Term Goal (STG) Pt will hve no pain w/cooking and dressing/bathing. 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 LTG Duration 07/12/23 ROM Short Term Goal (STG) Pt will have full PROM of L shoulder w/min discomfort STG Duration 05/30/23 Placement Assistant Goal (LTG) Pt will have full AROM of L shoulder and neck w/o inc pain in order to allow greater ease w/ADLs LTG Duration 07/12/23 Quick dash Impairment 75 Short Term Goal (STG) Pt will improve quick dash score to no greater than 50 to show improved functional ability. STG Duration 05/30/23 Jail Goal (LTG) Pt will improve quick dash score to no greater than 20 to show improved functional ability. LTG Duration 07/12/23 Assessment Summary Assessment Pt had improved ability to allow scap to drop after manual treament. She did well with exercises and was able to get a little more range w/the exercises today but is still very reluctant w/abd ROM. Physical Therapy Plan Frequency and Duration Frequency of Treatment 2x/Week Duration of treatment (weeks) 12 Plan of Care Start Date 04/19/23 Plan of Care End Date 07/12/23 Next Visit Focus/Plan Next Note Type Treatment Note Next Visit Plan cont to advance AAROM to improve shoulder mobility; gentle PROM, STM to scars, LS & UT, as bruising dec, GH and AC and SC nila medrano
--- NOTE | 2023-04-25 11:36 | PT.OTN ---
Current Diagnoses Cervicalgia (04/25/23) Incomplete rotator cuff tear or rupture of left shoulder, not specified as traumatic (04/25/23) Abnormal posture (04/25/23) Weakness (04/25/23) Physical Therapy Treatment Note PT-OP-A Visit Information Start: 04/04/23 15:19 Freq: Status: Active Protocol: Document 04/25/23 10:52 [facility] (Rec: 04/25/23 11:35 [facility] [id number]) Out-Patient Physical Therapy Visit Information Visit Information Visit Type Treatment Note Visit Start Time 10:51 Visit Stop Time 11:30 Total Visit Minutes 39 Visit Number 10/06 Number of MARKETING AUTOMATION ANALYST Visits 0 PT-OP-B Current Condition Start: 04/04/23 15:19 Freq: Status: Active Protocol: Document 04/19/23 10:14 [facility] (Rec: 04/19/23 11:38 [facility] [id number]) Current Condition History of Current Condition Onset Date 03/26 Current Complaints L shoulder arthroscopic debridement and History of Current Condition Pt reports shoulder surgery 06/07. Pt reports she started taking the sling off at home and reached accidently to take chavez and the shoulder was very painful after that. This was about 2 weeks out and she called the doctor and she talked to them. It was keeping her awake at night after this . Hydrocodone did work. Today she hasn't taken one yet. 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 She did PT and that helped the R and the pain is slowly coming back. She also had a MRI from Dr. Topete and there was notable cervical stenosis and in December did injections in her neck. That really helped the neck. 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 She had a scar tissue removal in [facility]. She is pretty much retired at this point d/t pain . next follow up w/ is may 08. Pt has the sling off all day (per MD) at home. She slept w/o it for the first time last night and slept on the couch. She rolled over onto it last night and that did wake her up. Treatment Goals Patient/Caregiver Goals be able to garden, do crafts, get dressed, clean, be able to do her hair, ride a bike and kayak PT-OP-C Subjective Start: 04/04/23 15:19 Freq: Status: Active Protocol: Document 04/25/23 10:52 [facility] (Rec: 04/25/23 11:35 [id number] OP-PT Subjective Patient Comments Patient Comments Pt did well with response after last session and felt like she had more range. She thinks she overdid it yesterday and was really sore that night but unsure what she did. she did ice a lot PT-OP-F Manual Assessment Start: 04/04/23 15:19 Freq: Status: Active Protocol: Document 04/19/23 10:14 [facility] (Rec: 04/19/23 11:38 [id number] Manual Assessments Soft Tissue Assessment Soft Tissue Mobility Assessment 4 good healing incisions; most last one most sensative; all have signfiicant tension Joint Mobility Assessment Joint Mobility Assessment 1st rib on L elevated PT-OP-J Posture/Palpation/Skin Start: 04/04/23 15:19 Freq: Status: Active Protocol: Document 04/19/23 10:14 [facility] (Rec: 04/19/23 11:38 [id number] Posture Evaluation Comments Posture Comments humerus ant L>R in glenoid; L scap more abd, ant tipped and elevated PT-OP-K Range of Motion Start: 04/04/23 15:19 Freq: Status: Active Protocol: Document 04/19/23 10:14 [facility] (Rec: 04/19/23 11:38 [facility] [id number]) Cervical Spine Range of Motion Cervical Spine Active Degrees Flexion 41 Extension 50 Rotation Left 52 Rotation Right 71 Lateral Flexion Left 44 Lateral Flexion Right 40 Comments discomfort w/flex, ext, L rot Shoulder Goniometric Range of Motion Shoulder Left Active Flexion 24 Extension 43 Abduction 19 External Rotation at 0 degrees Abduction 30 Internal Rotation Behind Back (text) L4 Comments pain w/flex and abd, ER and IR Right Active Flexion 161 Extension 76 Abduction 180 External Rotation at 90 degrees 83 Abduction External Rotation at 0 degrees Abduction 73 Internal Rotation Behind Back (text) T5 Left Passive Flexion 83 Abduction 19 External Rotation at 0 degrees Abduction 23 Internal Rotation 51 Comments pain w/all; abd worst; IR at side PT-OP-Q Treatments Start: 04/04/23 15:19 Freq: Status: Active Protocol: Document 04/25/23 10:52 [facility] (Rec: 04/25/23 11:35 [facility] [id number]) Therapeutic Exercises Supine Exercises flex Supine Exercise Name chest press AAROM Side left Equipment Used cane Reps/Minutes 10 ER Supine Exercise Name cane AAROM Side left Reps/Minutes 10 Sitting Exercises pullys Sitting Exercise Name AAROM flex and scaption Side left Reps/Minutes 10 ea Comments slow movement Standing Exercises flex Standing Exercise Name wall slide up w/towel Side left Equipment Used R assisting L on towel Reps/Minutes 5 Comments comfortable range IR Standing Exercise Name AAROm behind back Side left Equipment Used cane Reps/Minutes 10 pendulum Standing Exercise Name 1. fwd/back 2. circles B 3. side/side Side left Reps/Minutes 5 ea direction walk away Standing Exercise Name 1. flex 2. abd Side bilateral Reps/Minutes 10 sec x5 ea Comments hands on counter- cues deep breathes ext Standing Exercise Name AAROM Side left Equipment Used cane Reps/Minutes 10 Manual Therapy Treatment Soft Tissue Mobilization scars Body Location L Mobilization Type Rolling Intensity/Depth Moderate UE Body Location L biceps Mobilization Type Rolling Intensity/Depth Moderate Body Position Supine superior Body Location L UT, LS, scalenes Mobilization Type Rolling Intensity/Depth Superficial Body Position Hooklying Joint Mobilizations GH Joint L Direction Post, distraction Grade II PT-OP-T Assessment and Plan Start: 04/04/23 15:19 Freq: Status: Active Protocol: Document 04/25/23 10:52 [facility] (Rec: 04/25/23 11:35 [facility] [id number]) Physical Therapy Assessment Goals strength Short Term Goal (STG) Pt will be indep w/HEP STG Duration 05/30/23 Engineering Test Mechanic Goal (LTG) Pt will score at least 4/5 MMT on LUE to show good strength in order for pt to be able to do typical active lifestyle. LTG Duration 07/12 activities Short Term Goal (STG) Pt will hve no pain w/cooking and dressing/bathing. 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 LTG Duration 07/12/23 ROM Short Term Goal (STG) Pt will have full PROM of L shoulder w/min discomfort STG Duration 05/30/23 Engineering Test Mechanic Goal (LTG) Pt will have full AROM of L shoulder and neck w/o inc pain in order to allow greater ease w/ADLs LTG Duration 07/12/23 Quick dash Impairment 75 Short Term Goal (STG) Pt will improve quick dash score to no greater than 50 to show improved functional ability. STG Duration 05/30/23 Engineering Test Mechanic Goal (LTG) Pt will improve quick dash score to no greater than 20 to show improved functional ability. LTG Duration 07/12/23 Assessment Summary Assessment Pt did well with exercises but did have less range w/supine cane press today d/t soreness. She has a lot of restriction in soft tissue around shoulder likely affectng ROM Physical Therapy Plan Frequency and Duration Frequency of Treatment 2x/Week Duration of treatment (weeks) 12 Plan of Care Start Date 04/19/23 Plan of Care End Date 07/12/23 Next Visit Focus/Plan Next Note Type Treatment Note Next Visit Plan cont to advance AAROM to improve shoulder mobility; gentle PROM, STM to scars, LS & UT, as bruising dec, GH and AC and SC nila medrano
--- NOTE | 2023-05-03 11:35 | PT.OTN ---
Current Diagnoses Cervicalgia (05/03/23) Incomplete rotator cuff tear or rupture of left shoulder, not specified as traumatic (05/03/23) Abnormal posture (05/03/23) Weakness (05/03/23) Physical Therapy Treatment Note PT-OP-A Visit Information Start: 04/04/23 15:19 Freq: Status: Active Protocol: Document 05/03/23 10:54 [facility] (Rec: 05/03/23 11:35 [facility] [id number]) Out-Patient Physical Therapy Visit Information Visit Information Visit Type Treatment Note Visit Start Time 10:50 Visit Stop Time 11:30 Total Visit Minutes 40 Visit Number 11/06 Number of SHOT BLAST EQUIPMENT OPERATOR Visits 0 PT-OP-B Current Condition Start: 04/04/23 15:19 Freq: Status: Active Protocol: Document 04/19/23 10:14 [facility] (Rec: 04/19/23 11:38 [facility] [id number]) Current Condition History of Current Condition Onset Date 03/26 Current Complaints L shoulder arthroscopic debridement and History of Current Condition Pt reports shoulder surgery 06/07. Pt reports she started taking the sling off at home and reached accidently to take chavez and the shoulder was very painful after that. This was about 2 weeks out and she called the doctor and she talked to them. It was keeping her awake at night after this . Hydrocodone did work. Today she hasn't taken one yet. 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 She did PT and that helped the R and the pain is slowly coming back. She also had a MRI from Dr. Topete and there was notable cervical stenosis and in December did injections in her neck. That really helped the neck. 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 She had a scar tissue removal in [facility]. She is pretty much retired at this point d/t pain . next follow up w/ is may 08. Pt has the sling off all day (per MD) at home. She slept w/o it for the first time last night and slept on the couch. She rolled over onto it last night and that did wake her up. Treatment Goals Patient/Caregiver Goals be able to garden, do crafts, get dressed, clean, be able to do her hair, ride a bike and kayak PT-OP-C Subjective Start: 04/04/23 15:19 Freq: Status: Active Protocol: Document 05/03/23 10:54 [facility] (Rec: 05/03/23 11:35 [facility] [id number]) OP-PT Subjective Patient Comments Patient Comments Pt reports shoulder has been pretty painfulthis week. Took hydrocodone yesterd. sees PT-OP-F Manual Assessment Start: 04/04/23 15:19 Freq: Status: Active Protocol: Document 04/19/23 10:14 [facility] (Rec: 04/19/23 11:38 [facility] [id number]) Manual Assessments Soft Tissue Assessment Soft Tissue Mobility Assessment 4 good healing incisions; most last one most sensative; all have signfiicant tension Joint Mobility Assessment Joint Mobility Assessment 1st rib on L elevated PT-OP-J Posture/Palpation/Skin Start: 04/04/23 15:19 Freq: Status: Active Protocol: Document 04/19/23 10:14 [facility] (Rec: 04/19/23 11:38 [facility] [id number]) Posture Evaluation Comments Posture Comments humerus ant L>R in glenoid; L scap more abd, ant tipped and elevated PT-OP-K Range of Motion Start: 04/04/23 15:19 Freq: Status: Active Protocol: Document 04/19/23 10:14 [facility] (Rec: 04/19/23 11:38 [facility] [id number]) Cervical Spine Range of Motion Cervical Spine Active Degrees Flexion 41 Extension 50 Rotation Left 52 Rotation Right 71 Lateral Flexion Left 44 Lateral Flexion Right 40 Comments discomfort w/flex, ext, L rot Shoulder Goniometric Range of Motion Shoulder Left Active Flexion 24 Extension 43 Abduction 19 External Rotation at 0 degrees Abduction 30 Internal Rotation Behind Back (text) L4 Comments pain w/flex and abd, ER and IR Right Active Flexion 161 Extension 76 Abduction 180 External Rotation at 90 degrees 83 Abduction External Rotation at 0 degrees Abduction 73 Internal Rotation Behind Back (text) T5 Left Passive Flexion 83 Abduction 19 External Rotation at 0 degrees Abduction 23 Internal Rotation 51 Comments pain w/all; abd worst; IR at side PT-OP-Q Treatments Start: 04/04/23 15:19 Freq: Status: Active Protocol: Document 05/03/23 10:54 [facility] (Rec: 05/03/23 11:35 [facility] [id number]) Therapeutic Exercises Supine Exercises flex Supine Exercise Name chest press AAROM to flex Side left Equipment Used cane Reps/Minutes 6 ER Supine Exercise Name cane AAROM Side left Reps/Minutes 10 Sitting Exercises pullys Sitting Exercise Name AAROM flex and scaption and abd Side left Reps/Minutes 12 ea Comments slow movement Standing Exercises abd Standing Exercise Name comfortable range Side left Equipment Used cane Reps/Minutes 5 flex Standing Exercise Name wall slide up w/towel Side left Equipment Used R assisting L on towel Reps/Minutes 5 Comments comfortable range IR Standing Exercise Name AAROm behind back Side left Equipment Used cane Reps/Minutes 10 pendulum Standing Exercise Name 1. fwd/back 2. circles B 3. side/side Side left Reps/Minutes 5 ea direction walk away Standing Exercise Name 1. flex 2. abd Side bilateral Reps/Minutes 10 ea Comments cues comoortable range w/squat lat w/abd ext Standing Exercise Name AAROM Side left Equipment Used cane Reps/Minutes 10 Manual Therapy Treatment Soft Tissue Mobilization UE Body Location L pec, teres major/minor Mobilization Type Rolling,Sustained Pressure Intensity/Depth Moderate Body Position Supine superior Body Location L UT, LS Mobilization Type Rolling Intensity/Depth Superficial Body Position Hooklying Joint Mobilizations GH Joint L Direction Post, distraction, lat gapping , inf Grade II Self-Care/Home Management Treatment Education Other Education 8 min: pt discussed feeling depressed and that she is struggling not being able to do much w/shoulder. Edu to pt re: working to find a counselor and discussed how stress can also affect pain. Pt notes she has 3 names from [facility] to contact. Further discussion w/activity reveals pt doing exercises 3x/ day, plus doing AROM abd and flex when sitting in chair plus normal ADLs. Encouraged to dec ADLS to no doing too much in one day or AROM and to dec PT exerciss 2x/day PT-OP-T Assessment and Plan Start: 04/04/23 15:19 Freq: Status: Active Protocol: Document 05/03/23 10:54 [facility] (Rec: 05/03/23 11:35 [facility] [id number]) Physical Therapy Assessment Goals strength Short Term Goal (STG) Pt will be indep w/HEP STG Duration 05/30/23 Store Operations Specialist Goal (LTG) Pt will score at least 4/5 MMT on LUE to show good strength in order for pt to be able to do typical active lifestyle. LTG Duration 07/12 activities Short Term Goal (STG) Pt will hve no pain w/cooking and dressing/bathing. 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 LTG Duration 07/12/23 ROM Short Term Goal (STG) Pt will have full PROM of L shoulder w/min discomfort STG Duration 05/30/23 [facility] Goal (LTG) Pt will have full AROM of L shoulder and neck w/o inc pain in order to allow greater ease w/ADLs LTG Duration 07/12/23 Quick dash Impairment 75 Short Term Goal (STG) Pt will improve quick dash score to no greater than 50 to show improved functional ability. STG Duration 05/30/23 [facility] Goal (LTG) Pt will improve quick dash score to no greater than 20 to show improved functional ability. LTG Duration 07/12/23 Assessment Summary Assessment Pt is showing more AROM flex now and doing better w/AAROM overall. She does still erquire cuing during exercises . She allowed more PROM today Physical Therapy Plan Frequency and Duration Frequency of Treatment 2x/Week Duration of treatment (weeks) 12 Plan of Care Start Date 04/19/23 Plan of Care End Date 07/12/23 Next Visit Focus/Plan Next Note Type Treatment Note Next Visit Plan cont to advance AAROM to improve shoulder mobility; gentle PROM, STM to scars, LS & UT, as bruising dec, GH and AC and SC jt [email or web address]
--- NOTE | 2023-05-07 18:05 | PT.OTN ---
Current Diagnoses Cervicalgia (05/07/23) Incomplete rotator cuff tear or rupture of left shoulder, not specified as traumatic (05/07/23) Abnormal posture (05/07/23) Weakness (05/07/23) Physical Therapy Treatment Note PT-OP-A Visit Information Start: 04/04/23 15:19 Freq: Status: Active Protocol: Document 05/07/23 10:38 [facility] (Rec: 05/07/23 17:52 [facility] [id number]) Out-Patient Physical Therapy Visit Information Visit Information Visit Type Treatment Note Visit Start Time 10:35 Visit Stop Time 11:15 Total Visit Minutes 40 Visit Number 12/06 Number of CORPORATE MEETING PLANNER Visits 1 PT-OP-B Current Condition Start: 04/04/23 15:19 Freq: Status: Active Protocol: Document 04/19/23 10:14 [facility] (Rec: 04/19/23 11:38 [facility] [id number]) Current Condition History of Current Condition Onset Date 03/26 Current Complaints L shoulder arthroscopic debridement and History of Current Condition Pt reports shoulder surgery 06/07. Pt reports she started taking the sling off at home and reached accidently to take chavez and the shoulder was very painful after that. This was about 2 weeks out and she called the doctor and she talked to them. It was keeping her awake at night after this . Hydrocodone did work. Today she hasn't taken one yet. 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 She did PT and that helped the R and the pain is slowly coming back. She also had a MRI from Dr. Topete and there was notable cervical stenosis and in December did injections in her neck. That really helped the neck. 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 She had a scar tissue removal in [facility]. She is pretty much retired at this point d/t pain . next follow up w/ is may 08. Pt has the sling off all day (per MD) at home. She slept w/o it for the first time last night and slept on the couch. She rolled over onto it last night and that did wake her up. Treatment Goals Patient/Caregiver Goals be able to garden, do crafts, get dressed, clean, be able to do her hair, ride a bike and kayak PT-OP-C Subjective Start: 04/04/23 15:19 Freq: Status: Active Protocol: Document 05/07/23 10:38 [facility] (Rec: 05/07/23 17:52 [facility] [id number]) OP-PT Subjective Patient Comments Patient Comments Pt presents today w/ 0/10 pain but reports the past two days were the absolute worst and it makes it impossible to do anything. She was in tears from the pain and had spasms and her shoulder in the front feels painful to the touch like touching a bruise and spasms happened in the front - she took two muscle relaxers yesterday instead of one. No pain management needed yet today. PT-OP-F Manual Assessment Start: 04/04/23 15:19 Freq: Status: Active Protocol: Document 04/19/23 10:14 [facility] (Rec: 04/19/23 11:38 [facility] [id number]) Manual Assessments Soft Tissue Assessment Soft Tissue Mobility Assessment 4 good healing incisions; most last one most sensative; all have signfiicant tension Joint Mobility Assessment Joint Mobility Assessment 1st rib on L elevated PT-OP-J Posture/Palpation/Skin Start: 04/04/23 15:19 Freq: Status: Active Protocol: Document 04/19/23 10:14 [facility] (Rec: 04/19/23 11:38 [facility] [id number]) Posture Evaluation Comments Posture Comments humerus ant L>R in glenoid; L scap more abd, ant tipped and elevated PT-OP-K Range of Motion Start: 04/04/23 15:19 Freq: Status: Active Protocol: Document 04/19/23 10:14 [facility] (Rec: 04/19/23 11:38 [facility] [id number]) Cervical Spine Range of Motion Cervical Spine Active Degrees Flexion 41 Extension 50 Rotation Left 52 Rotation Right 71 Lateral Flexion Left 44 Lateral Flexion Right 40 Comments discomfort w/flex, ext, L rot Shoulder Goniometric Range of Motion Shoulder Left Active Flexion 24 Extension 43 Abduction 19 External Rotation at 0 degrees Abduction 30 Internal Rotation Behind Back (text) L4 Comments pain w/flex and abd, ER and IR Right Active Flexion 161 Extension 76 Abduction 180 External Rotation at 90 degrees 83 Abduction External Rotation at 0 degrees Abduction 73 Internal Rotation Behind Back (text) T5 Left Passive Flexion 83 Abduction 19 External Rotation at 0 degrees Abduction 23 Internal Rotation 51 Comments pain w/all; abd worst; IR at side PT-OP-Q Treatments Start: 04/04/23 15:19 Freq: Status: Active Protocol: Document 05/07/23 10:38 [facility] (Rec: 05/07/23 17:52 [facility] [id number]) Therapeutic Exercises Standing Exercises pendulum Standing Exercise Name 1. fwd/back 2. circles B 3. side/side Side left Equipment Used shirt sleeve, cord for visual cue Reps/Minutes 5 ea direction Manual Therapy Treatment Soft Tissue Mobilization scars Body Location L Mobilization Type Rolling Intensity/Depth Moderate UE Body Location L pec, teres major/minor Mobilization Type Rolling,Sustained Pressure Intensity/Depth Moderate Body Position Supine Comments double towel roll under distal L UE superior Body Location L UT, LS Mobilization Type Rolling Intensity/Depth Superficial Body Position Hooklying Comments double towel roll under distal L UE Joint Mobilizations GH Joint L Direction Post, distraction, lat gapping , inf Grade II Body Position Supine Comments pillow under L arm Self-Care/Home Management Treatment Education Patient Education Home Exercise Program,Pain Management,Posture Other Education Educated pt on use of diaphragmatic breathing for pain dampening. Emphasis on upright posture w/ chin retraction for cervical alignment to improve form with side pendulums. PT-OP-T Assessment and Plan Start: 04/04/23 15:19 Freq: Status: Active Protocol: Document 05/07/23 10:38 [facility] (Rec: 05/07/23 17:52 [facility] [id number]) Physical Therapy Assessment Assessment Summary Assessment Isatu presents with no L shoulder pain today but reports the past two days were the most painful. She does present with muscle guarding L Upper trapezius overactivation and requires cues for this and upright posture. Treatment focus on manual therapy to the L shoulder and review of pendulum ex's which pt reports most difficult. She requires cues with pendulums for PROM, overactive UT, and chin retraction w/ side pendulums, and demonstrates improved form with no discomfort with these cues. Manual therapy focus on decreasing palpable tension to L UT and LS with positive feedback response. Educated pt on use of diaphragmatic breathing for pain dampening. Physical Therapy Plan Frequency and Duration Frequency of Treatment 2x/Week Duration of treatment (weeks) 12 Plan of Care Start Date 04/19/23 Plan of Care End Date 07/12/23 Therapeutic Interventions Therapeutic Interventions Gait Training,Home Exercise Program,Joint Mobilizations, Manual Therapy,Neuromuscular Re-education,Orthotic/ Prosthetic Management,Patient/ Caregiver Education,Self-Care/ Home Management,Soft Tissue Mobilization,Taping, Therapeutic Activities, Therapeutic Exercises Modalities Cold Pack/Ice Massage,Electric Stimulation,Hot Packs, Infrared Therapy,Ultrasound Next Visit Focus/Plan Next Note Type Treatment Note Next Visit Plan cont to advance AAROM to improve shoulder mobility; gentle PROM, STM to scars, LS & UT, as bruising dec, GH and AC and SC nila medrano
--- NOTE | 2023-05-10 11:38 | PT.OTN ---
Current Diagnoses Cervicalgia (05/10/23) Incomplete rotator cuff tear or rupture of left shoulder, not specified as traumatic (05/10/23) Abnormal posture (05/10/23) Weakness (05/10/23) Physical Therapy Treatment Note PT-OP-A Visit Information Start: 04/04/23 15:19 Freq: Status: Active Protocol: Document 05/10/23 10:53 [facility] (Rec: 05/10/23 11:38 [facility] [id number]) Out-Patient Physical Therapy Visit Information Visit Information Visit Type Treatment Note Visit Start Time 10:52 Visit Stop Time 11:31 Total Visit Minutes 39 Visit Number 01/06 Number of FUNERAL PRE ARRANGEMENT COUNSELOR Visits 0 PT-OP-B Current Condition Start: 04/04/23 15:19 Freq: Status: Active Protocol: Document 04/19/23 10:14 [facility] (Rec: 04/19/23 11:38 [facility] [id number]) Current Condition History of Current Condition Onset Date 03/26 Current Complaints L shoulder arthroscopic debridement and History of Current Condition Pt reports shoulder surgery 06/07. Pt reports she started taking the sling off at home and reached accidently to take chavez and the shoulder was very painful after that. This was about 2 weeks out and she called the doctor and she talked to them. It was keeping her awake at night after this . Hydrocodone did work. Today she hasn't taken one yet. 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 She did PT and that helped the R and the pain is slowly coming back. She also had a MRI from Dr. Topete and there was notable cervical stenosis and in December did injections in her neck. That really helped the neck. 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 She had a scar tissue removal in [facility]. She is pretty much retired at this point d/t pain . next follow up w/ is may 08. Pt has the sling off all day (per MD) at home. She slept w/o it for the first time last night and slept on the couch. She rolled over onto it last night and that did wake her up. Treatment Goals Patient/Caregiver Goals be able to garden, do crafts, get dressed, clean, be able to do her hair, ride a bike and kayak PT-OP-C Subjective Start: 04/04/23 15:19 Freq: Status: Active Protocol: Document 05/10/23 10:53 [facility] ([facility]23 [id number] Subjective Patient Comments Patient Comments Pt reports she saw the MD and he told he rif her ROM wasn't full by Jul 03, they'd have to do sx again. notes she has more hydrocodone from MD. PT-OP-F Manual Assessment Start: 04/04/23 15:19 Freq: Status: Active Protocol: Document 04/19/23 10:14 [facility] (Rec: 04/19/23 11:38 [facility] [id number]) Manual Assessments Soft Tissue Assessment Soft Tissue Mobility Assessment 4 good healing incisions; most last one most sensative; all have signfiicant tension Joint Mobility Assessment Joint Mobility Assessment 1st rib on L elevated PT-OP-J Posture/Palpation/Skin Start: 04/04/23 15:19 Freq: Status: Active Protocol: Document 04/19/23 10:14 [facility] (Rec: 04/19/23 11:38 [facility] [id number]) Posture Evaluation Comments Posture Comments humerus ant L>R in glenoid; L scap more abd, ant tipped and elevated PT-OP-K Range of Motion Start: 04/04/23 15:19 Freq: Status: Active Protocol: Document 04/19/23 10:14 [facility] (Rec: 04/19/23 11:38 [facility] [id number]) Cervical Spine Range of Motion Cervical Spine Active Degrees Flexion 41 Extension 50 Rotation Left 52 Rotation Right 71 Lateral Flexion Left 44 Lateral Flexion Right 40 Comments discomfort w/flex, ext, L rot Shoulder Goniometric Range of Motion Shoulder Left Active Flexion 24 Extension 43 Abduction 19 External Rotation at 0 degrees Abduction 30 Internal Rotation Behind Back (text) L4 Comments pain w/flex and abd, ER and IR Right Active Flexion 161 Extension 76 Abduction 180 External Rotation at 90 degrees 83 Abduction External Rotation at 0 degrees Abduction 73 Internal Rotation Behind Back (text) T5 Left Passive Flexion 83 Abduction 19 External Rotation at 0 degrees Abduction 23 Internal Rotation 51 Comments pain w/all; abd worst; IR at side PT-OP-Q Treatments Start: 04/04/23 15:19 Freq: Status: Active Protocol: Document 05/10/23 10:53 [facility] (Rec: 05/10/23 11:38 [facility] [id number]) Cardio Equipment Upper Body Ergometer (UBE) Duration (Minutes) 4 RPM 70 Seat Position 11 Height 5 Other fwd/back Therapeutic Exercises Sitting Exercises pullys Sitting Exercise Name AAROM flex and scaption and abd Side left Reps/Minutes 12 ea Comments slow movement Standing Exercises isometrics Standing Exercise Name flex, abd, IR, ER Side left Reps/Minutes 5 sec x10 ea flex Standing Exercise Name wall slide up w/towel Side left Equipment Used R assisting L on towel Reps/Minutes 10 Comments comfortable range IR Standing Exercise Name AAROm behind back Side left Equipment Used cane Reps/Minutes 10 ext Standing Exercise Name AAROM Side left Equipment Used cane Reps/Minutes 10 Manual Therapy Treatment Soft Tissue Mobilization UE Body Location L teres, subscap Mobilization Type Rolling,Sustained Pressure Intensity/Depth Moderate Body Position Supine Comments w/gentle PROM superior Body Location L UT, LS, scalenes, pec Mobilization Type Rolling Intensity/Depth Superficial Body Position Hooklying Comments w/gentle ROM Joint Mobilizations GH Joint L Direction Post, distraction, inf Grade II Body Position Supine PT-OP-T Assessment and Plan Start: 04/04/23 15:19 Freq: Status: Active Protocol: Document 05/10/23 10:53 [facility] (Rec: 05/10/23 11:38 [facility] [id number]) Physical Therapy Assessment Goals strength Short Term Goal (STG) Pt will be indep w/HEP STG Duration 05/30/23 Build Manager Goal (LTG) Pt will score at least 4/5 MMT on LUE to show good strength in order for pt to be able to do typical active lifestyle. LTG Duration 07/12 activities Short Term Goal (STG) Pt will hve no pain w/cooking and dressing/bathing. 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 LTG Duration 07/12/23 ROM Short Term Goal (STG) Pt will have full PROM of L shoulder w/min discomfort STG Duration 05/30/23 Build Manager Goal (LTG) Pt will have full AROM of L shoulder and neck w/o inc pain in order to allow greater ease w/ADLs LTG Duration 07/12/23 Quick dash Impairment 75 Short Term Goal (STG) Pt will improve quick dash score to no greater than 50 to show improved functional ability. STG Duration 05/30/23 Residential Goal (LTG) Pt will improve quick dash score to no greater than 20 to show improved functional ability. LTG Duration 07/12/23 Assessment Summary Assessment Pt demonstrated improved tolerance to ROM and exercises . She demonstrated much improved ROM including abd but is most limited w/Abd ROM still. Physical Therapy Plan Frequency and Duration Frequency of Treatment 2x/Week Duration of treatment (weeks) 12 Plan of Care Start Date 04/19/23 Plan of Care End Date 07/12/23 Next Visit Focus/Plan Next Note Type Treatment Note Next Visit Plan cont to advance AAROM to improve shoulder mobility and advance to AROM; gentle PROM, STM to scars, LS & UT, as bruising dec, GH and AC and SC jt nila dang
--- NOTE | 2023-05-14 11:23 | PT.OTN ---
Current Diagnoses Cervicalgia (05/14/23) Incomplete rotator cuff tear or rupture of left shoulder, not specified as traumatic (05/14/23) Abnormal posture (05/14/23) Weakness (05/14/23) Physical Therapy Treatment Note PT-OP-A Visit Information Start: 04/04/23 15:19 Freq: Status: Active Protocol: Document 05/14/23 10:34 [facility] (Rec: 05/14/23 11:23 [facility] [id number]) Out-Patient Physical Therapy Visit Information Visit Information Visit Type Treatment Note Visit Start Time 10:35 Visit Stop Time 11:20 Total Visit Minutes 45 Visit Number 02/05 Number of HELPER DRIVER Visits 1 PT-OP-B Current Condition Start: 04/04/23 15:19 Freq: Status: Active Protocol: Document 04/19/23 10:14 [facility] (Rec: 04/19/23 11:38 [facility] [id number]) Current Condition History of Current Condition Onset Date 03/26 Current Complaints L shoulder arthroscopic debridement and History of Current Condition Pt reports shoulder surgery 06/07. Pt reports she started taking the sling off at home and reached accidently to take chavez and the shoulder was very painful after that. This was about 2 weeks out and she called the doctor and she talked to them. It was keeping her awake at night after this . Hydrocodone did work. Today she hasn't taken one yet. 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 She did PT and that helped the R and the pain is slowly coming back. She also had a MRI from Dr. Topete and there was notable cervical stenosis and in December did injections in her neck. That really helped the neck. 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 She had a scar tissue removal in [facility]. She is pretty much retired at this point d/t pain . next follow up w/ is may 08. Pt has the sling off all day (per MD) at home. She slept w/o it for the first time last night and slept on the couch. She rolled over onto it last night and that did wake her up. Treatment Goals Patient/Caregiver Goals be able to garden, do crafts, get dressed, clean, be able to do her hair, ride a bike and kayak PT-OP-C Subjective Start: 04/04/23 15:19 Freq: Status: Active Protocol: Document 05/14/23 10:34 [facility] (Rec: 05/14/23 11:23 [facility] [id number]) OP-PT Subjective Patient Comments Patient Comments Lizabeth reports she's used pain medication once and iced after last visit. This morning it wasn't bothering her so she didn't take pain med yet. Next visit with ortho is 07/03 and if her ROM is not where it's supposed to be he will perform manipulation under anesthesia. Working on the [employer] mm really helped. She has stations around her house where she does her ex's whenever she walks by. PT-OP-F Manual Assessment Start: 04/04/23 15:19 Freq: Status: Active Protocol: Document 04/19/23 10:14 [facility] (Rec: 04/19/23 11:38 [facility] [id number]) Manual Assessments Soft Tissue Assessment Soft Tissue Mobility Assessment 4 good healing incisions; most last one most sensative; all have signfiicant tension Joint Mobility Assessment Joint Mobility Assessment 1st rib on L elevated PT-OP-J Posture/Palpation/Skin Start: 04/04/23 15:19 Freq: Status: Active Protocol: Document 04/19/23 10:14 [facility] (Rec: 04/19/23 11:38 [facility] [id number]) Posture Evaluation Comments Posture Comments humerus ant L>R in glenoid; L scap more abd, ant tipped and elevated PT-OP-K Range of Motion Start: 04/04/23 15:19 Freq: Status: Active Protocol: Document 04/19/23 10:14 [facility] (Rec: 04/19/23 11:38 [facility] [id number]) Cervical Spine Range of Motion Cervical Spine Active Degrees Flexion 41 Extension 50 Rotation Left 52 Rotation Right 71 Lateral Flexion Left 44 Lateral Flexion Right 40 Comments discomfort w/flex, ext, L rot Shoulder Goniometric Range of Motion Shoulder Left Active Flexion 24 Extension 43 Abduction 19 External Rotation at 0 degrees Abduction 30 Internal Rotation Behind Back (text) L4 Comments pain w/flex and abd, ER and IR Right Active Flexion 161 Extension 76 Abduction 180 External Rotation at 90 degrees 83 Abduction External Rotation at 0 degrees Abduction 73 Internal Rotation Behind Back (text) T5 Left Passive Flexion 83 Abduction 19 External Rotation at 0 degrees Abduction 23 Internal Rotation 51 Comments pain w/all; abd worst; IR at side PT-OP-Q Treatments Start: 04/04/23 15:19 Freq: Status: Active Protocol: Document 05/14/23 10:34 [facility] (Rec: 05/14/23 11:23 [facility] [id number]) Cardio Equipment Upper Body Ergometer (UBE) Duration (Minutes) 5 RPM 70 Seat Position 11 Height 5 Other fwd/back Therapeutic Exercises Sitting Exercises pullys Sitting Exercise Name AAROM flex and scaption and abd Side left Reps/Minutes 12 ea Comments slow movement Standing Exercises isometrics Standing Exercise Name flex, abd,, scaption IR, ER Side left Reps/Minutes 5 sec x10 ea Comments initial sharp pain reported w/ abduction flex Standing Exercise Name wall slide up w/towel Side left Equipment Used R assisting L on towel Reps/Minutes x7, then x5 w/ overhead stretch in pain-free range Comments comfortable range IR Standing Exercise Name AAROm behind back Side left Equipment Used dowel Reps/Minutes 10 ext Standing Exercise Name AAROM Side left Equipment Used cane Reps/Minutes 10 Manual Therapy Treatment Soft Tissue Mobilization UE Body Location L teres, subscap, biceps Mobilization Type Rolling,Sustained Pressure Intensity/Depth Moderate Body Position Supine Comments w/gentle PROM superior Body Location L UT, LS, scalenes Mobilization Type Rolling,Strumming,Sustained Pressure Intensity/Depth Superficial Body Position Hooklying Comments w/gentle ROM Joint Mobilizations GH Joint L Direction Post, distraction, inf Grade II Body Position Hooklying PT-OP-T Assessment and Plan Start: 04/04/23 15:19 Freq: Status: Active Protocol: Document 05/14/23 10:34 [facility] (Rec: 05/14/23 11:23 [facility] [id number]) Physical Therapy Assessment Goals strength Short Term Goal (STG) Pt will be indep w/HEP 05/14 - Pt reports compliance with HEP. STG Duration 05/30/23 Feed Project Engineer Goal (LTG) Pt will score at least 4/5 MMT on LUE to show good strength in order for pt to be able to do typical active lifestyle. LTG Duration 07/12 activities Short Term Goal (STG) Pt will hve no pain w/cooking and dressing/bathing. 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 LTG Duration 07/12/23 ROM Short Term Goal (STG) Pt will have full PROM of L shoulder w/min discomfort STG Duration 05/30/23 Custodial Goal (LTG) Pt will have full AROM of L shoulder and neck w/o inc pain in order to allow greater ease w/ADLs LTG Duration 07/12/23 Assessment Summary Assessment Isatu reports an initial sharp L shoulder pain reported w/ abduction isometrics which resolves with cues for pain free effort. She demonstrates improving tolerance to exercises and improved self- awareness of UT overactivation . Positive feedback response to L glenohumeral joint mobilizations and distraction. Ice offered and declined; pt will ice at home. Physical Therapy Plan Frequency and Duration Frequency of Treatment 2x/Week Duration of treatment (weeks) 12 Plan of Care Start Date 04/19/23 Plan of Care End Date 07/12/23 Therapeutic Interventions Therapeutic Interventions Gait Training,Home Exercise Program,Joint Mobilizations, Manual Therapy,Neuromuscular Re-education,Orthotic/ Prosthetic Management,Patient/ Caregiver Education,Self-Care/ Home Management,Soft Tissue Mobilization,Taping, Therapeutic Activities, Therapeutic Exercises Modalities Cold Pack/Ice Massage,Electric Stimulation,Hot Packs, Infrared Therapy,Ultrasound Next Visit Focus/Plan Next Note Type Treatment Note Next Visit Plan cont to advance AAROM to improve shoulder mobility and advance to AROM; gentle PROM, STM to scars, LS & UT, as bruising dec, GH and AC and SC pault nila dang
--- NOTE | 2023-05-16 11:35 | PT.OTN ---
Current Diagnoses Cervicalgia (05/16/23) Incomplete rotator cuff tear or rupture of left shoulder, not specified as traumatic (05/16/23) Abnormal posture (05/16/23) Weakness (05/16/23) Physical Therapy Treatment Note PT-OP-A Visit Information Start: 04/04/23 15:19 Freq: Status: Active Protocol: Document 05/16/23 10:50 SP (Rec: 05/16/23 11:39 SP [id number]) Out-Patient Physical Therapy Visit Information Visit Information Visit Type Treatment Note Visit Start Time 10:50 Visit Stop Time 11:35 Total Visit Minutes 45 Visit Number 03/08 Number of WHITE WASHER Visits 2 PT-OP-B Current Condition Start: 04/04/23 15:19 Freq: Status: Active Protocol: Document 04/19/23 10:14 [facility] (Rec: 04/19/23 11:38 [facility] [id number]) Current Condition History of Current Condition Onset Date 03/26 Current Complaints L shoulder arthroscopic debridement and History of Current Condition Pt reports shoulder surgery 06/07. Pt reports she started taking the sling off at home and reached accidently to take chavez and the shoulder was very painful after that. This was about 2 weeks out and she called the doctor and she talked to them. It was keeping her awake at night after this . Hydrocodone did work. Today she hasn't taken one yet. 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 She did PT and that helped the R and the pain is slowly coming back. She also had a MRI from Dr. Topete and there was notable cervical stenosis and in December did injections in her neck. That really helped the neck. 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 She had a scar tissue removal in [facility]. She is pretty much retired at this point d/t pain . next follow up w/MD is may 08. Pt has the sling off all day (per MD) at home. She slept w/o it for the first time last night and slept on the couch. She rolled over onto it last night and that did wake her up. Treatment Goals Patient/Caregiver Goals be able to garden, do crafts, get dressed, clean, be able to do her hair, ride a bike and kayak PT-OP-C Subjective Start: 04/04/23 15:19 Freq: Status: Active Protocol: Document 05/16/23 10:50 SP (Rec: 05/16/23 11:39 SP [id number]) OP-PT Subjective Patient Comments Patient Comments Pt felt ok after last tx, still pretty limited in ROM, weakness and compliant with HEP. She stated the manual therapy helps her ROM but challenged at home carryover. PT-OP-F Manual Assessment Start: 04/04/23 15:19 Freq: Status: Active Protocol: Document 04/19/23 10:14 [facility] (Rec: 04/19/23 11:38 [facility] [id number]) Manual Assessments Soft Tissue Assessment Soft Tissue Mobility Assessment 4 good healing incisions; most last one most sensative; all have signfiicant tension Joint Mobility Assessment Joint Mobility Assessment 1st rib on L elevated PT-OP-J Posture/Palpation/Skin Start: 04/04/23 15:19 Freq: Status: Active Protocol: Document 04/19/23 10:14 [facility] (Rec: 04/19/23 11:38 [facility] [id number]) Posture Evaluation Comments Posture Comments humerus ant L>R in glenoid; L scap more abd, ant tipped and elevated PT-OP-K Range of Motion Start: 04/04/23 15:19 Freq: Status: Active Protocol: Document 04/19/23 10:14 [facility] (Rec: 04/19/23 11:38 [facility] [id number]) Cervical Spine Range of Motion Cervical Spine Active Degrees Flexion 41 Extension 50 Rotation Left 52 Rotation Right 71 Lateral Flexion Left 44 Lateral Flexion Right 40 Comments discomfort w/flex, ext, L rot Shoulder Goniometric Range of Motion Shoulder Left Active Flexion 24 Extension 43 Abduction 19 External Rotation at 0 degrees Abduction 30 Internal Rotation Behind Back (text) L4 Comments pain w/flex and abd, ER and IR Right Active Flexion 161 Extension 76 Abduction 180 External Rotation at 90 degrees 83 Abduction External Rotation at 0 degrees Abduction 73 Internal Rotation Behind Back (text) T5 Left Passive Flexion 83 Abduction 19 External Rotation at 0 degrees Abduction 23 Internal Rotation 51 Comments pain w/all; abd worst; IR at side PT-OP-Q Treatments Start: 04/04/23 15:19 Freq: Status: Active Protocol: Document 05/16/23 10:50 SP (Rec: 05/16/23 11:39 SP [id number]) Therapeutic Exercises Sidelying Exercises open book Sidelying Exercise Name hand on head ABD Sidelying Exercise Name AAROM Manual Therapy Treatment Soft Tissue Mobilization UE Body Location L teres, subscap, biceps Mobilization Type Rolling,Sustained Pressure, Other Intensity/Depth Moderate Body Position Supine Comments w/gentle PROM tolerated, sustained pressure MWM FF, ABD , ER, punch mostion superior Body Location L UT, LS, scalenes Mobilization Type Rolling,Strumming,Sustained Pressure Intensity/Depth Superficial Body Position Hooklying Comments w/gentle ROM Joint Mobilizations Scapulothoracic Joint L Direction retraction/depression/ UR/ DR Grade II Body Position R sidely Comments PROM, AAROM added then added c / ed for home open book (hand on head), cues not UT recruitment more LT fac/re ed. GH Joint L Direction Post, distraction, inf Grade II Body Position Hooklying Self-Care/Home Management Treatment Education Other Education Extra time ed anatomy c/ use of model and mechanics of shoulder during manual and AAROM with feedback why choosing ex for strength scap and RTC stability while progressing AROM allowance and tolerated. PT-OP-T Assessment and Plan Start: 04/04/23 15:19 Freq: Status: Active Protocol: Document 05/16/23 10:50 SP (Rec: 05/16/23 11:39 SP [id number]) Physical Therapy Assessment Goals strength Short Term Goal (STG) Pt will be indep w/HEP 05/14 - Pt reports compliance with HEP. STG Duration 05/30/23 Mcfp Goal (LTG) Pt will score at least 4/5 MMT on LUE to show good strength in order for pt to be able to do typical active lifestyle. LTG Duration 07/12 activities Short Term Goal (STG) Pt will hve no pain w/cooking and dressing/bathing. 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 LTG Duration 07/12/23 ROM Short Term Goal (STG) Pt will have full PROM of L shoulder w/min discomfort STG Duration 05/30/23 Mcfp Goal (LTG) Pt will have full AROM of L shoulder and neck w/o inc pain in order to allow greater ease w/ADLs LTG Duration 07/12/23 Quick dash Impairment 75 Short Term Goal (STG) Pt will improve quick dash score to no greater than 50 to show improved functional ability. STG Duration 05/30/23 Mcfp Goal (LTG) Pt will improve quick dash score to no greater than 20 to show improved functional ability. LTG Duration 07/12/23 Assessment Summary Assessment Pt improved scapular mobility post education anatomy and mechanics of ROM during PROM> AAROM. Able to add open book modified hand on head, tactile and VCs for awareness of less /no UT recruitment more LT facilitation with segmental arm/scap retracting/inferior glide then Ts rotation during HABD motion with reports this feels much better and able to do at home . Physical Therapy Plan Frequency and Duration Frequency of Treatment 2x/Week Duration of treatment (weeks) 12 Plan of Care Start Date 04/19/23 Plan of Care End Date 07/12/23 Therapeutic Interventions Therapeutic Interventions Gait Training,Home Exercise Program,Joint Mobilizations, Manual Therapy,Neuromuscular Re-education,Orthotic/ Prosthetic Management,Patient/ Caregiver Education,Self-Care/ Home Management,Soft Tissue Mobilization,Taping, Therapeutic Activities, Therapeutic Exercises Modalities Cold Pack/Ice Massage,Electric Stimulation,Hot Packs, Infrared Therapy,Ultrasound Next Visit Focus/Plan Next Note Type Treatment Note Next Visit Plan Recheck openbook, cont ABD on side post manual. POC: to advance AAROM to improve shoulder mobility and advance to AROM; gentle PROM, STM to scars, LS & UT, as bruising dec, GH and AC and SC jt mobs, pulleys
--- NOTE | 2023-05-22 17:13 | PT.OTN ---
Addendum entered and electronically signed by Olivia Schroeder PT 05/23/23 08:26: PT direct supervision and direction to PT student. Original Note: Current Diagnoses Cervicalgia (05/22/23) Incomplete rotator cuff tear or rupture of left shoulder, not specified as traumatic (05/22/23) Abnormal posture (05/22/23) Weakness (05/22/23) Physical Therapy Treatment Note PT-OP-A Visit Information Start: 04/04/23 15:19 Freq: Status: Active Protocol: Document 05/22/23 11:18 BS (Rec: 05/22/23 11:56 BS [id number]) Out-Patient Physical Therapy Visit Information Visit Information Visit Type Treatment Note Visit Start Time 10:48 Visit Stop Time 11:30 Total Visit Minutes 42 Visit Number 04/08 Number of WINDOWS SERVER SPECIALIST Visits 0 PT-OP-B Current Condition Start: 04/04/23 15:19 Freq: Status: Active Protocol: Document 04/19/23 10:14 [facility] (Rec: 04/19/23 11:38 [facility] [id number]) Current Condition History of Current Condition Onset Date 03/26 Current Complaints L shoulder arthroscopic debridement and History of Current Condition Pt reports shoulder surgery 06/07. Pt reports she started taking the sling off at home and reached accidently to take chavez and the shoulder was very painful after that. This was about 2 weeks out and she called the doctor and she talked to them. It was keeping her awake at night after this . Hydrocodone did work. Today she hasn't taken one yet. 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 She did PT and that helped the R and the pain is slowly coming back. She also had a MRI from Dr. Topete and there was notable cervical stenosis and in December did injections in her neck. That really helped the neck. 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 She had a scar tissue removal in [place]. She is pretty much retired at this point d/t pain . next follow up w/MD is may 08. Pt has the sling off all day (per MD) at home. She slept w/o it for the first time last night and slept on the couch. She rolled over onto it last night and that did wake her up. Treatment Goals Patient/Caregiver Goals be able to garden, do crafts, get dressed, clean, be able to do her hair, ride a bike and kayak PT-OP-C Subjective Start: 04/04/23 15:19 Freq: Status: Active Protocol: Document 05/22/23 11:18 BS (Rec: 05/22/23 11:56 BS [id number]) OP-PT Subjective Patient Comments Patient Comments Pt felt great through bicep after last session but next day post shoulder was quite tender and sore. Pt had difficult week personally and was in bed most of the weekend so didn't do any HEP. Feels very tense and tight through shoulder. PT-OP-F Manual Assessment Start: 04/04/23 15:19 Freq: Status: Active Protocol: Document 04/19/23 10:14 [facility] (Rec: 04/19/23 11:38 [facility] [id number]) Manual Assessments Soft Tissue Assessment Soft Tissue Mobility Assessment 4 good healing incisions; most last one most sensative; all have signfiicant tension Joint Mobility Assessment Joint Mobility Assessment 1st rib on L elevated PT-OP-J Posture/Palpation/Skin Start: 04/04/23 15:19 Freq: Status: Active Protocol: Document 04/19/23 10:14 [facility] (Rec: 04/19/23 11:38 [facility] [id number]) Posture Evaluation Comments Posture Comments humerus ant L>R in glenoid; L scap more abd, ant tipped and elevated PT-OP-K Range of Motion Start: 04/04/23 15:19 Freq: Status: Active Protocol: Document 04/19/23 10:14 [facility] (Rec: 04/19/23 11:38 [facility] [id number]) Cervical Spine Range of Motion Cervical Spine Active Degrees Flexion 41 Extension 50 Rotation Left 52 Rotation Right 71 Lateral Flexion Left 44 Lateral Flexion Right 40 Comments discomfort w/flex, ext, L rot Shoulder Goniometric Range of Motion Shoulder Left Active Flexion 24 Extension 43 Abduction 19 External Rotation at 0 degrees Abduction 30 Internal Rotation Behind Back (text) L4 Comments pain w/flex and abd, ER and IR Right Active Flexion 161 Extension 76 Abduction 180 External Rotation at 90 degrees 83 Abduction External Rotation at 0 degrees Abduction 73 Internal Rotation Behind Back (text) T5 Left Passive Flexion 83 Abduction 19 External Rotation at 0 degrees Abduction 23 Internal Rotation 51 Comments pain w/all; abd worst; IR at side PT-OP-Q Treatments Start: 04/04/23 15:19 Freq: Status: Active Protocol: Document 05/22/23 11:18 BS (Rec: 05/22/23 11:56 BS [id number]) Therapeutic Exercises Supine Exercises ABD Supine Exercise Name AROM Side left Reps/Minutes x5 Comments through tolerable range flex Supine Exercise Name AROM Side left Reps/Minutes x5 Comments through tolerable range Sidelying Exercises open book Sidelying Exercise Name hand on head Reps/Minutes x10 Comments Lying on R Sitting Exercises IR/ER Sitting Exercise Name banded IR/ER Side left Resistance peach band Reps/Minutes x10 ea Comments cues for relaxing shoulder at start and keeping elbow under shoulder Standing Exercises Stretch Standing Exercise Name Pec stretch at wall Side left Reps/Minutes 30s Comments cue for tolerable stretch ext Standing Exercise Name Banded ext Side left Equipment Used peach band Reps/Minutes 10 Comments cue for relaxed shoulder to start Manual Therapy Treatment Soft Tissue Mobilization UE Body Location Pecs, bicep Mobilization Type Rolling,Strumming,Sustained Pressure Intensity/Depth Moderate Body Position Supine Comments w/ gentle PROM & AROM Joint Mobilizations GH Joint L Direction Inf, Post, distraction Grade III Body Position Hooklying PT-OP-T Assessment and Plan Start: 04/04/23 15:19 Freq: Status: Active Protocol: Document 05/22/23 11:18 BS (Rec: 05/22/23 11:56 BS [id number]) Physical Therapy Assessment Goals strength Short Term Goal (STG) Pt will be indep w/HEP 05/14 - Pt reports compliance with HEP. STG Duration 05/30/23 Prison Goal (LTG) Pt will score at least 4/5 MMT on LUE to show good strength in order for pt to be able to do typical active lifestyle. LTG Duration 07/12 activities Short Term Goal (STG) Pt will hve no pain w/cooking and dressing/bathing. 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 LTG Duration 07/12/23 ROM Short Term Goal (STG) Pt will have full PROM of L shoulder w/min discomfort STG Duration 05/30/23 Prison Goal (LTG) Pt will have full AROM of L shoulder and neck w/o inc pain in order to allow greater ease w/ADLs LTG Duration 07/12/23 Quick dash Impairment 75 Short Term Goal (STG) Pt will improve quick dash score to no greater than 50 to show improved functional ability. STG Duration 05/30/23 Prison Goal (LTG) Pt will improve quick dash score to no greater than 20 to show improved functional ability. LTG Duration 07/12/23 Assessment Summary Assessment Pt presented today with inc tension through pecs and bicep , and reporting inc feeling of tension throughout shoulder over weekend. Pt dec tension spec in pecs & bicep with manual and improved both PROM and AROM through flexion and abduction. Pt still limited with abd>flex however sig improved since eval. Pt started gentle strengthening for IR/ER/ext with peach band and was able to complete with mod cueing to relax shoulder down before beginning and keep elbow in line with shoulder throughout rotation. Physical Therapy Plan Frequency and Duration Frequency of Treatment 2x/Week Duration of treatment (weeks) 12 Plan of Care Start Date 04/19/23 Plan of Care End Date 07/12/23 Next Visit Focus/Plan Next Note Type Progress Note Next Visit Plan Next visit with PT PN. POC: progress strength with reistance band and introduce gentle flex& abd strength, advance AAROM & AROM to improve shoulder mobility, continue manual: GH, AC, ST mobs, STM to pecs, bicep, & periscap
--- NOTE | 2023-05-24 15:15 | PT.OTN ---
Current Diagnoses Cervicalgia (05/24/23) Incomplete rotator cuff tear or rupture of left shoulder, not specified as traumatic (05/24/23) Abnormal posture (05/24/23) Weakness (05/24/23) Physical Therapy Treatment Note PT-OP-A Visit Information Start: 04/04/23 15:19 Freq: Status: Active Protocol: Document 05/24/23 14:34 SP (Rec: 05/24/23 15:46 SP [id number]) Out-Patient Physical Therapy Visit Information Visit Information Visit Type Treatment Note Visit Start Time 14:34 Visit Stop Time 15:15 Total Visit Minutes 41 Visit Number 05/08 Number of DIRECTOR INDUSTRIAL MUSEUM Visits 1 PT-OP-B Current Condition Start: 04/04/23 15:19 Freq: Status: Active Protocol: Document 04/19/23 10:14 [facility] (Rec: 04/19/23 11:38 [facility] [id number]) Current Condition History of Current Condition Onset Date 03/26 Current Complaints L shoulder arthroscopic debridement and History of Current Condition Pt reports shoulder surgery 06/07. Pt reports she started taking the sling off at home and reached accidently to take chavez and the shoulder was very painful after that. This was about 2 weeks out and she called the doctor and she talked to them. It was keeping her awake at night after this . Hydrocodone did work. Today she hasn't taken one yet. 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 She did PT and that helped the R and the pain is slowly coming back. She also had a MRI from Dr. Topete and there was notable cervical stenosis and in December did injections in her neck. That really helped the neck. 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 She had a scar tissue removal in [facility]. She is pretty much retired at this point d/t pain . next follow up w/MD is may 08. Pt has the sling off all day (per MD) at home. She slept w/o it for the first time last night and slept on the couch. She rolled over onto it last night and that did wake her up. Treatment Goals Patient/Caregiver Goals be able to garden, do crafts, get dressed, clean, be able to do her hair, ride a bike and kayak PT-OP-C Subjective Start: 04/04/23 15:19 Freq: Status: Active Protocol: Document 05/24/23 14:34 SP (Rec: 05/24/23 15:46 SP [id number]) OP-PT Subjective Patient Comments Patient Comments Pt arrives on phone with dr flynn. PT-OP-F Manual Assessment Start: 04/04/23 15:19 Freq: Status: Active Protocol: Document 04/19/23 10:14 [facility] (Rec: 04/19/23 11:38 [facility] [id number]) Manual Assessments Soft Tissue Assessment Soft Tissue Mobility Assessment 4 good healing incisions; most last one most sensative; all have signfiicant tension Joint Mobility Assessment Joint Mobility Assessment 1st rib on L elevated PT-OP-J Posture/Palpation/Skin Start: 04/04/23 15:19 Freq: Status: Active Protocol: Document 04/19/23 10:14 [facility] (Rec: 04/19/23 11:38 [facility] [id number]) Posture Evaluation Comments Posture Comments humerus ant L>R in glenoid; L scap more abd, ant tipped and elevated PT-OP-K Range of Motion Start: 04/04/23 15:19 Freq: Status: Active Protocol: Document 04/19/23 10:14 [facility] (Rec: 04/19/23 11:38 [facility] [id number]) Cervical Spine Range of Motion Cervical Spine Active Degrees Flexion 41 Extension 50 Rotation Left 52 Rotation Right 71 Lateral Flexion Left 44 Lateral Flexion Right 40 Comments discomfort w/flex, ext, L rot Shoulder Goniometric Range of Motion Shoulder Left Active Flexion 24 Extension 43 Abduction 19 External Rotation at 0 degrees Abduction 30 Internal Rotation Behind Back (text) L4 Comments pain w/flex and abd, ER and IR Right Active Flexion 161 Extension 76 Abduction 180 External Rotation at 90 degrees 83 Abduction External Rotation at 0 degrees Abduction 73 Internal Rotation Behind Back (text) T5 Left Passive Flexion 83 Abduction 19 External Rotation at 0 degrees Abduction 23 Internal Rotation 51 Comments pain w/all; abd worst; IR at side PT-OP-Q Treatments Start: 04/04/23 15:19 Freq: Status: Active Protocol: Document 05/24/23 14:34 SP (Rec: 05/24/23 15:46 SP [id number]) Therapeutic Exercises Sidelying Exercises ER Sidelying Exercise Name added to HEP Side left Resistance AROM Equipment Used towel roll under arm Reps/Minutes x12 Comments tactile cues rhomboid & LT fac scap stab/pos open book Sidelying Exercise Name hand on head & long arm 3 reps Resistance sidelying R Reps/Minutes 5 reps x3 sets, 3 reps long arm Comments cued gentle fist/elbow extension and scapular glide GH mobility. ABD Sidelying Exercise Name AAROM< AROM Side left Resistance AAROM>AROM Reps/Minutes 5 reps x3 sets Comments tactile cues rhomboid, LT fac Sitting Exercises IR/ER Sitting Exercise Name banded concentric ER/ Eccentric IR Side bilateral Resistance peach band (HABD front), palms face up Equipment Used (no towel allows GH post glide neutral pos) Reps/Minutes x10 ea Comments cues for relaxing shoulder at start and keeping elbow under shoulder Manual Therapy Treatment Soft Tissue Mobilization UE Body Location Pecs, bicep Mobilization Type Rolling,Strumming,Sustained Pressure,Other Intensity/Depth Moderate Body Position Supine Comments w/ gentle PROM, AAROM, AROM- FF, scaption, HABD, ABD. Joint Mobilizations Scapulothoracic Joint L Direction retraction/depression/ UR/ DR Grade II Body Position R sidely Comments PROM, AAROM added then added c / ed for home open book (hand on head), cues not UT recruitment more LT fac/re ed. GH Joint L Direction Inf, Post, distraction Grade II Body Position Hooklying PT-OP-T Assessment and Plan Start: 04/04/23 15:19 Freq: Status: Active Protocol: Document 05/24/23 14:34 SP (Rec: 05/24/23 15:46 SP [id number]) Physical Therapy Assessment Goals strength Short Term Goal (STG) Pt will be indep w/HEP 05/14 - Pt reports compliance with HEP. STG Duration 05/30/23 Platform Engineer Goal (LTG) Pt will score at least 4/5 MMT on LUE to show good strength in order for pt to be able to do typical active lifestyle. LTG Duration 07/12 activities Short Term Goal (STG) Pt will hve no pain w/cooking and dressing/bathing. 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 LTG Duration 07/12/23 ROM Short Term Goal (STG) Pt will have full PROM of L shoulder w/min discomfort STG Duration 05/30/23 Platform Engineer Goal (LTG) Pt will have full AROM of L shoulder and neck w/o inc pain in order to allow greater ease w/ADLs LTG Duration 07/12/23 Quick dash Impairment 75 Short Term Goal (STG) Pt will improve quick dash score to no greater than 50 to show improved functional ability. STG Duration 05/30/23 Platform Engineer Goal (LTG) Pt will improve quick dash score to no greater than 20 to show improved functional ability. LTG Duration 07/12/23 Assessment Summary Assessment Pt improved understanding of anatomy, mechanics of scapular ROM glide and GH mobility with ability to perform sidelyine shld ER, aBD, short &long axis HABD against gravity with min VC/tactile cues for Rhomoid/LT/tricep recrutiment noted decreased UT / pec compensations. Improved carryover B resisted shld ER painfree with added use of mirror for self positioning corrections awareness. Physical Therapy Plan Frequency and Duration Frequency of Treatment 2x/Week Duration of treatment (weeks) 12 Plan of Care Start Date 04/19/23 Plan of Care End Date 07/12/23 Therapeutic Interventions Therapeutic Interventions Gait Training,Home Exercise Program,Joint Mobilizations, Manual Therapy,Neuromuscular Re-education,Orthotic/ Prosthetic Management,Patient/ Caregiver Education,Self-Care/ Home Management,Soft Tissue Mobilization,Taping, Therapeutic Activities, Therapeutic Exercises Modalities Cold Pack/Ice Massage,Electric Stimulation,Hot Packs, Infrared Therapy,Ultrasound Next Visit Focus/Plan Next Note Type Progress Note Next Visit Plan Next visit 05/29 PT PN needed. Assess AROM progression added L shld ABD/ER/HABD (short/ long axis) POC: progress strength with reistance band and introduce gentle flex& abd strength, advance AAROM & AROM to improve shoulder mobility, continue manual: GH, AC, ST mobs, STM to pecs, bicep, & periscap
--- NOTE | 2023-05-31 13:00 | PT.OTN ---
Current Diagnoses Cervicalgia (05/31/23) Incomplete rotator cuff tear or rupture of left shoulder, not specified as traumatic (05/31/23) Abnormal posture (05/31/23) Weakness (05/31/23) Physical Therapy Treatment Note PT-OP-A Visit Information Start: 04/04/23 15:19 Freq: Status: Active Protocol: Document 05/31/23 12:15 SP (Rec: 05/31/23 13:10 SP [id number]) Out-Patient Physical Therapy Visit Information Visit Information Visit Type Treatment Note Visit Start Time 12:15 Visit Stop Time 13:00 Total Visit Minutes 45 Visit Number 06/08 Number of CONTRACT NEGOTIATOR Visits 2 PT-OP-B Current Condition Start: 04/04/23 15:19 Freq: Status: Active Protocol: Document 04/19/23 10:14 [facility] (Rec: 04/19/23 11:38 [facility] [id number]) Current Condition History of Current Condition Onset Date 03/26 Current Complaints L shoulder arthroscopic debridement and History of Current Condition Pt reports shoulder surgery 06/07. Pt reports she started taking the sling off at home and reached accidently to take chavez and the shoulder was very painful after that. This was about 2 weeks out and she called the doctor and she talked to them. It was keeping her awake at night after this . Hydrocodone did work. Today she hasn't taken one yet. 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 She did PT and that helped the R and the pain is slowly coming back. She also had a MRI from Dr. Topete and there was notable cervical stenosis and in December did injections in her neck. That really helped the neck. 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 She had a scar tissue removal in [facility]. She is pretty much retired at this point d/t pain . next follow up w/MD is may 08. Pt has the sling off all day (per MD) at home. She slept w/o it for the first time last night and slept on the couch. She rolled over onto it last night and that did wake her up. Treatment Goals Patient/Caregiver Goals be able to garden, do crafts, get dressed, clean, be able to do her hair, ride a bike and kayak PT-OP-C Subjective Start: 04/04/23 15:19 Freq: Status: Active Protocol: Document 05/31/23 12:15 SP (Rec: 05/31/23 13:10 SP [id number]) OP-PT Subjective Patient Comments Patient Comments Pt reports not feeling as good today, has active small localized spot shingles over R buttocks, is covered and no elsewhere. Is currently on medication day 2 and told not contagious so why in PT today. She asked if can get massage working on neck/shld with someone in town beneficial to decrease tightness and pain experiencing. PT-OP-F Manual Assessment Start: 04/04/23 15:19 Freq: Status: Active Protocol: Document 04/19/23 10:14 [facility] (Rec: 04/19/23 11:38 [facility] [id number]) Manual Assessments Soft Tissue Assessment Soft Tissue Mobility Assessment 4 good healing incisions; most last one most sensative; all have signfiicant tension Joint Mobility Assessment Joint Mobility Assessment 1st rib on L elevated PT-OP-J Posture/Palpation/Skin Start: 04/04/23 15:19 Freq: Status: Active Protocol: Document 04/19/23 10:14 [facility] (Rec: 04/19/23 11:38 [facility] [id number]) Posture Evaluation Comments Posture Comments humerus ant L>R in glenoid; L scap more abd, ant tipped and elevated PT-OP-K Range of Motion Start: 04/04/23 15:19 Freq: Status: Active Protocol: Document 04/19/23 10:14 [facility] (Rec: 04/19/23 11:38 [facility] [id number]) Cervical Spine Range of Motion Cervical Spine Active Degrees Flexion 41 Extension 50 Rotation Left 52 Rotation Right 71 Lateral Flexion Left 44 Lateral Flexion Right 40 Comments discomfort w/flex, ext, L rot Shoulder Goniometric Range of Motion Shoulder Left Active Flexion 24 Extension 43 Abduction 19 External Rotation at 0 degrees Abduction 30 Internal Rotation Behind Back (text) L4 Comments pain w/flex and abd, ER and IR Right Active Flexion 161 Extension 76 Abduction 180 External Rotation at 90 degrees 83 Abduction External Rotation at 0 degrees Abduction 73 Internal Rotation Behind Back (text) T5 Left Passive Flexion 83 Abduction 19 External Rotation at 0 degrees Abduction 23 Internal Rotation 51 Comments pain w/all; abd worst; IR at side PT-OP-Q Treatments Start: 04/04/23 15:19 Freq: Status: Active Protocol: Document 05/31/23 12:15 SP (Rec: 05/31/23 13:10 SP [id number]) Therapeutic Exercises Supine Exercises flex Supine Exercise Name AROM Side left Reps/Minutes x10 Comments improved with reps, cued ER long axis Sidelying Exercises ER Sidelying Exercise Name reviewed HEP Side left Resistance AROM Equipment Used towel roll under arm Reps/Minutes x12 Comments tactile cues rhomboid, LT, inferior glide ABD Sidelying Exercise Name AAROM> AROM Side left Resistance AAROM>AROM Reps/Minutes x10 Comments tactile cues rhomboid, LT fac, scapular glide and tricep fac less bicep/del Standing Exercises IR Resistance TB#1 Equipment Used no towel roll Reps/Minutes 10 Comments cued rhomboid /LT fac. ext Standing Exercise Name Banded ext Side left Equipment Used peach band>orange Reps/Minutes 10 Comments cue for relaxed shoulder to start Manual Therapy Treatment Soft Tissue Mobilization UE Body Location Pecs, bicep Mobilization Type Rolling,Strumming,Sustained Pressure,Other Intensity/Depth Moderate Body Position Supine Comments w/ gentle PROM, AAROM, AROM- FF, scaption, HABD, ABD. Joint Mobilizations Scapulothoracic Joint L Direction retraction/depression/ UR/ DR Grade II Body Position R sidely Comments PROM, cues not UT recruitment more LT fac/re ed. GH Joint L Direction Inf, Post, distraction Grade II Body Position Hooklying PT-OP-T Assessment and Plan Start: 04/04/23 15:19 Freq: Status: Active Protocol: Document 05/31/23 12:15 SP (Rec: 05/31/23 13:10 SP [id number]) Physical Therapy Assessment Goals strength Short Term Goal (STG) Pt will be indep w/HEP 05/14 - Pt reports compliance with HEP. STG Duration 05/30/23 Intertype Operator Goal (LTG) Pt will score at least 4/5 MMT on LUE to show good strength in order for pt to be able to do typical active lifestyle. LTG Duration 07/12 activities Short Term Goal (STG) Pt will hve no pain w/cooking and dressing/bathing. 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 LTG Duration 07/12/23 ROM Short Term Goal (STG) Pt will have full PROM of L shoulder w/min discomfort STG Duration 05/30/23 Snf Goal (LTG) Pt will have full AROM of L shoulder and neck w/o inc pain in order to allow greater ease w/ADLs LTG Duration 07/12/23 Quick dash Impairment 75 Short Term Goal (STG) Pt will improve quick dash score to no greater than 50 to show improved functional ability. STG Duration 05/30/23 Intertype Operator Goal (LTG) Pt will improve quick dash score to no greater than 20 to show improved functional ability. LTG Duration 07/12/23 Assessment Summary Assessment Pt improved Humeral inferior glide with tactile cuing and rhomboid & LT engagement with AAROM scapular rotation glide lessened bicep and lateral deltoid pain during ther ex. Physical Therapy Plan Frequency and Duration Frequency of Treatment 2x/Week Duration of treatment (weeks) 12 Plan of Care Start Date 04/19/23 Plan of Care End Date 07/12/23 Therapeutic Interventions Therapeutic Interventions Gait Training,Home Exercise Program,Joint Mobilizations, Manual Therapy,Neuromuscular Re-education,Orthotic/ Prosthetic Management,Patient/ Caregiver Education,Self-Care/ Home Management,Soft Tissue Mobilization,Taping, Therapeutic Activities, Therapeutic Exercises Modalities Cold Pack/Ice Massage,Electric Stimulation,Hot Packs, Infrared Therapy,Ultrasound Next Visit Focus/Plan Next Note Type Progress Note Next Visit Plan PN in 3 visits. Assess AROM progression added L shld ABD/ ER/HABD (short/long axis) POC: progress strength with reistance band and introduce gentle flex& abd strength, advance AAROM & AROM to improve shoulder mobility, continue manual: GH, AC, ST mobs, STM to pecs, bicep, & periscap
--- NOTE | 2023-06-01 11:32 | PT.OTN ---
Current Diagnoses Cervicalgia (06/01/23) Incomplete rotator cuff tear or rupture of left shoulder, not specified as traumatic (06/01/23) Abnormal posture (06/01/23) Weakness (06/01/23) Physical Therapy Treatment Note PT-OP-A Visit Information Start: 04/04/23 15:19 Freq: Status: Active Protocol: Document 06/01/23 10:44 SP (Rec: 06/01/23 11:39 SP [id number]) Out-Patient Physical Therapy Visit Information Visit Information Visit Type Treatment Note Visit Start Time 10:44 Visit Stop Time 11:32 Total Visit Minutes 38 Visit Number 07/08 Number of LEAK INSPECTOR Visits 3 PT-OP-B Current Condition Start: 04/04/23 15:19 Freq: Status: Active Protocol: Document 04/19/23 10:14 [facility] (Rec: 04/19/23 11:38 [facility] [id number]) Current Condition History of Current Condition Onset Date 03/26 Current Complaints L shoulder arthroscopic debridement and History of Current Condition Pt reports shoulder surgery 06/07. Pt reports she started taking the sling off at home and reached accidently to take chavez and the shoulder was very painful after that. This was about 2 weeks out and she called the doctor and she talked to them. It was keeping her awake at night after this . Hydrocodone did work. Today she hasn't taken one yet. 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 She did PT and that helped the R and the pain is slowly coming back. She also had a MRI from Dr. Topete and there was notable cervical stenosis and in December did injections in her neck. That really helped the neck. 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 She had a scar tissue removal in [facility]. She is pretty much retired at this point d/t pain . next follow up w/MD is may 08. Pt has the sling off all day (per MD) at home. She slept w/o it for the first time last night and slept on the couch. She rolled over onto it last night and that did wake her up. Treatment Goals Patient/Caregiver Goals be able to garden, do crafts, get dressed, clean, be able to do her hair, ride a bike and kayak PT-OP-C Subjective Start: 04/04/23 15:19 Freq: Status: Active Protocol: Document 06/01/23 10:44 SP (Rec: 06/01/23 11:39 SP [id number]) OP-PT Subjective Patient Comments Patient Comments Pt reports her L lateral shoulder was sore after last tx but finds PT is helping progress. PT-OP-F Manual Assessment Start: 04/04/23 15:19 Freq: Status: Active Protocol: Document 04/19/23 10:14 [facility] (Rec: 04/19/23 11:38 [facility] [id number]) Manual Assessments Soft Tissue Assessment Soft Tissue Mobility Assessment 4 good healing incisions; most last one most sensative; all have signfiicant tension Joint Mobility Assessment Joint Mobility Assessment 1st rib on L elevated PT-OP-J Posture/Palpation/Skin Start: 04/04/23 15:19 Freq: Status: Active Protocol: Document 04/19/23 10:14 [facility] (Rec: 04/19/23 11:38 [facility] [id number]) Posture Evaluation Comments Posture Comments humerus ant L>R in glenoid; L scap more abd, ant tipped and elevated PT-OP-K Range of Motion Start: 04/04/23 15:19 Freq: Status: Active Protocol: Document 04/19/23 10:14 [facility] (Rec: 04/19/23 11:38 [facility] [id number]) Cervical Spine Range of Motion Cervical Spine Active Degrees Flexion 41 Extension 50 Rotation Left 52 Rotation Right 71 Lateral Flexion Left 44 Lateral Flexion Right 40 Comments discomfort w/flex, ext, L rot Shoulder Goniometric Range of Motion Shoulder Left Active Flexion 24 Extension 43 Abduction 19 External Rotation at 0 degrees Abduction 30 Internal Rotation Behind Back (text) L4 Comments pain w/flex and abd, ER and IR Right Active Flexion 161 Extension 76 Abduction 180 External Rotation at 90 degrees 83 Abduction External Rotation at 0 degrees Abduction 73 Internal Rotation Behind Back (text) T5 Left Passive Flexion 83 Abduction 19 External Rotation at 0 degrees Abduction 23 Internal Rotation 51 Comments pain w/all; abd worst; IR at side PT-OP-Q Treatments Start: 04/04/23 15:19 Freq: Status: Active Protocol: Document 06/01/23 10:44 SP (Rec: 06/01/23 11:39 SP [id number]) Therapeutic Exercises Sidelying Exercises open book Sidelying Exercise Name hand on head & long arm 3 reps Resistance sidelying R Reps/Minutes 5 reps x3 sets, 3 reps long arm Comments cued gentle fist/elbow extension and scapular glide GH mobility. ABD Sidelying Exercise Name AROM Side left Resistance AROM Reps/Minutes x10 Comments tactile cues rhomboid, LT fac, scapular glide and tricep fac less bicep/del Sitting Exercises IR/ER Sitting Exercise Name banded concentric ER/ Eccentric IR Side bilateral Resistance peach band, palms face up Equipment Used front mirror Reps/Minutes 15 reps Comments cued painfree but effort range pullys Sitting Exercise Name flex, scaption, abd Side left Resistance AAROM Equipment Used use mirror for self feedback corrections Reps/Minutes 20 each directions Comments cued level shld, no trunk SB R Standing Exercises IR stretch Standing Exercise Name added to HEP: declined HO Side right Resistance LUE assist RUE Equipment Used towel support Reps/Minutes 3 reps x3 breath hold Comments improved sacrum> R ilium flex Standing Exercise Name wall slide up w/towel Side left Resistance AAROM Equipment Used slide up Reps/Minutes x4 reps 3 SH Comments cued level shld, CS neutral ( no SB or shld shrug) Manual Therapy Treatment Soft Tissue Mobilization UE Body Location Pecs, bicep, infrasp, prox lat , Teres Mobilization Type Rolling,Strumming,Sustained Pressure,Other Intensity/Depth Moderate Body Position Supine Comments w/ gentle PROM, AAROM, AROM- FF, scaption; sidelying HABD elbow bent, ABD. Joint Mobilizations Scapulothoracic Joint L Direction retraction/depression/ UR/ DR Grade II Body Position R sidely Comments PROM, tactile cues FM ABD, HABD elbow bent GH Joint L Direction Inf, Post Grade II Body Position Hooklying Comments manual and FM FF AAROM, sidelying ABD AAROM PT-OP-T Assessment and Plan Start: 04/04/23 15:19 Freq: Status: Active Protocol: Document 06/01/23 10:44 SP (Rec: 06/01/23 11:39 SP [id number]) Physical Therapy Assessment Goals strength Short Term Goal (STG) Pt will be indep w/HEP 05/14 - Pt reports compliance with HEP. STG Duration 05/30/23 Co Founder And Director Goal (LTG) Pt will score at least 4/5 MMT on LUE to show good strength in order for pt to be able to do typical active lifestyle. LTG Duration 07/12 activities Short Term Goal (STG) Pt will hve no pain w/cooking and dressing/bathing. 06/01/23: reports if moves wrong 01/22 eg going behind back, showering 09/22 pain. 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 LTG Duration 07/12/23 ROM Short Term Goal (STG) Pt will have full PROM of L shoulder w/min discomfort STG Duration 05/30/23 Co Founder And Director Goal (LTG) Pt will have full AROM of L shoulder and neck w/o inc pain in order to allow greater ease w/ADLs LTG Duration 07/12/23 Quick dash Impairment 75 Short Term Goal (STG) Pt will improve quick dash score to no greater than 50 to show improved functional ability. STG Duration 05/30/23 Prison Goal (LTG) Pt will improve quick dash score to no greater than 20 to show improved functional ability. LTG Duration 07/12/23 Assessment Summary Assessment Pt improved LT and inferior Humeral glide during etienne today with skilled cues and use of mirror for self feedback corrections. Reviewed scapular ROM modified open book with improved ROM but limited going forward discomfort posterior R shld. Improved IR stretch behind back with education slow and gentle low to no pain range, improved sacrum> over R ilium tolerance. GOod response to MHP end tx for recovery R shld soreness/ discomfort. Physical Therapy Plan Frequency and Duration Frequency of Treatment 2x/Week Duration of treatment (weeks) 12 Plan of Care Start Date 04/19/23 Plan of Care End Date 07/12/23 Therapeutic Interventions Therapeutic Interventions Gait Training,Home Exercise Program,Joint Mobilizations, Manual Therapy,Neuromuscular Re-education,Orthotic/ Prosthetic Management,Patient/ Caregiver Education,Self-Care/ Home Management,Soft Tissue Mobilization,Taping, Therapeutic Activities, Therapeutic Exercises Modalities Cold Pack/Ice Massage,Electric Stimulation,Hot Packs, Infrared Therapy,Ultrasound Next Visit Focus/Plan Next Note Type Progress Note Next Visit Plan PN in 2 visits. Assess AROM progression added L shld ABD/ ER/HABD (short/long axis) POC: progress strength with reistance band and introduce gentle flex& abd strength, advance AAROM & AROM to improve shoulder mobility, continue manual: GH, AC, ST mobs, STM to pecs, bicep, & periscap
--- NOTE | 2023-06-01 11:32 | PT.OTN ---
Current Diagnoses Cervicalgia (06/01/23) Incomplete rotator cuff tear or rupture of left shoulder, not specified as traumatic (06/01/23) Abnormal posture (06/01/23) Weakness (06/01/23) Physical Therapy Treatment Note PT-OP-A Visit Information Start: 04/04/23 15:19 Freq: Status: Active Protocol: Document 06/01/23 10:44 SP (Rec: 06/01/23 11:39 SP [id number]) Out-Patient Physical Therapy Visit Information Visit Information Visit Type Treatment Note Visit Start Time 10:44 Visit Stop Time 11:32 Total Visit Minutes 38 Visit Number 07/08 Number of PROMPT CARE RN Visits 3 PT-OP-B Current Condition Start: 04/04/23 15:19 Freq: Status: Active Protocol: Document 04/19/23 10:14 [facility] (Rec: 04/19/23 11:38 [facility] [id number]) Current Condition History of Current Condition Onset Date 03/26 Current Complaints L shoulder arthroscopic debridement and History of Current Condition Pt reports shoulder surgery 06/07. Pt reports she started taking the sling off at home and reached accidently to take chavez and the shoulder was very painful after that. This was about 2 weeks out and she called the doctor and she talked to them. It was keeping her awake at night after this . Hydrocodone did work. Today she hasn't taken one yet. 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 She did PT and that helped the R and the pain is slowly coming back. She also had a MRI from Dr. Topete and there was notable cervical stenosis and in December did injections in her neck. That really helped the neck. 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 She had a scar tissue removal in [facility]. She is pretty much retired at this point d/t pain . next follow up w/MD is may 08. Pt has the sling off all day (per MD) at home. She slept w/o it for the first time last night and slept on the couch. She rolled over onto it last night and that did wake her up. Treatment Goals Patient/Caregiver Goals be able to garden, do crafts, get dressed, clean, be able to do her hair, ride a bike and kayak PT-OP-C Subjective Start: 04/04/23 15:19 Freq: Status: Active Protocol: Document 06/01/23 10:44 SP (Rec: 06/01/23 11:39 SP [id number]) OP-PT Subjective Patient Comments Patient Comments Pt reports her L lateral shoulder was sore after last tx but finds PT is helping progress. PT-OP-F Manual Assessment Start: 04/04/23 15:19 Freq: Status: Active Protocol: Document 04/19/23 10:14 [facility] (Rec: 04/19/23 11:38 [facility] [id number]) Manual Assessments Soft Tissue Assessment Soft Tissue Mobility Assessment 4 good healing incisions; most last one most sensative; all have signfiicant tension Joint Mobility Assessment Joint Mobility Assessment 1st rib on L elevated PT-OP-J Posture/Palpation/Skin Start: 04/04/23 15:19 Freq: Status: Active Protocol: Document 04/19/23 10:14 [facility] (Rec: 04/19/23 11:38 [facility] [id number]) Posture Evaluation Comments Posture Comments humerus ant L>R in glenoid; L scap more abd, ant tipped and elevated PT-OP-K Range of Motion Start: 04/04/23 15:19 Freq: Status: Active Protocol: Document 04/19/23 10:14 [facility] (Rec: 04/19/23 11:38 [facility] [id number]) Cervical Spine Range of Motion Cervical Spine Active Degrees Flexion 41 Extension 50 Rotation Left 52 Rotation Right 71 Lateral Flexion Left 44 Lateral Flexion Right 40 Comments discomfort w/flex, ext, L rot Shoulder Goniometric Range of Motion Shoulder Left Active Flexion 24 Extension 43 Abduction 19 External Rotation at 0 degrees Abduction 30 Internal Rotation Behind Back (text) L4 Comments pain w/flex and abd, ER and IR Right Active Flexion 161 Extension 76 Abduction 180 External Rotation at 90 degrees 83 Abduction External Rotation at 0 degrees Abduction 73 Internal Rotation Behind Back (text) T5 Left Passive Flexion 83 Abduction 19 External Rotation at 0 degrees Abduction 23 Internal Rotation 51 Comments pain w/all; abd worst; IR at side PT-OP-Q Treatments Start: 04/04/23 15:19 Freq: Status: Active Protocol: Document 06/01/23 10:44 SP (Rec: 06/01/23 11:39 SP [id number]) Therapeutic Exercises Sidelying Exercises open book Sidelying Exercise Name hand on head & long arm 3 reps Resistance sidelying R Reps/Minutes 5 reps x3 sets, 3 reps long arm Comments cued gentle fist/elbow extension and scapular glide GH mobility. ABD Sidelying Exercise Name AROM Side left Resistance AROM Reps/Minutes x10 Comments tactile cues rhomboid, LT fac, scapular glide and tricep fac less bicep/del Sitting Exercises IR/ER Sitting Exercise Name banded concentric ER/ Eccentric IR Side bilateral Resistance peach band, palms face up Equipment Used front mirror Reps/Minutes 15 reps Comments cued painfree but effort range pullys Sitting Exercise Name flex, scaption, abd Side left Resistance AAROM Equipment Used use mirror for self feedback corrections Reps/Minutes 20 each directions Comments cued level shld, no trunk SB R Standing Exercises IR stretch Standing Exercise Name added to HEP: declined HO Side right Resistance LUE assist RUE Equipment Used towel support Reps/Minutes 3 reps x3 breath hold Comments improved sacrum> R ilium flex Standing Exercise Name wall slide up w/towel Side left Resistance AAROM Equipment Used slide up Reps/Minutes x4 reps 3 SH Comments cued level shld, CS neutral ( no SB or shld shrug) Manual Therapy Treatment Soft Tissue Mobilization UE Body Location Pecs, bicep, infrasp, prox lat , Teres Mobilization Type Rolling,Strumming,Sustained Pressure,Other Intensity/Depth Moderate Body Position Supine Comments w/ gentle PROM, AAROM, AROM- FF, scaption; sidelying HABD elbow bent, ABD. Joint Mobilizations Scapulothoracic Joint L Direction retraction/depression/ UR/ DR Grade II Body Position R sidely Comments PROM, tactile cues FM ABD, HABD elbow bent GH Joint L Direction Inf, Post Grade II Body Position Hooklying Comments manual and FM FF AAROM, sidelying ABD AAROM PT-OP-R Modalities Start: 04/04/23 15:19 Freq: Status: Active Protocol: Document 06/01/23 10:44 SP (Rec: 06/01/23 11:40 SP [id number]) Hot Pack/Cold Pack Treatment MHP R shld Location LEft [place] 06/01/23 Patient Position Hooklying Treatment Duration (minutes) 7 Patient Tolerance Good Comments less pain L shld PT-OP-T Assessment and Plan Start: 04/04/23 15:19 Freq: Status: Active Protocol: Document 06/01/23 10:44 SP (Rec: 06/01/23 11:39 SP [id number]) Physical Therapy Assessment Goals strength Short Term Goal (STG) Pt will be indep w/HEP 05/14 - Pt reports compliance with HEP. STG Duration 05/30/23 Fdc Goal (LTG) Pt will score at least 4/5 MMT on LUE to show good strength in order for pt to be able to do typical active lifestyle. LTG Duration 07/12 activities Short Term Goal (STG) Pt will hve no pain w/cooking and dressing/bathing. 06/01/23: reports if moves wrong 01/22 eg going behind back, showering 09/22 pain. 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 LTG Duration 07/12/23 ROM Short Term Goal (STG) Pt will have full PROM of L shoulder w/min discomfort STG Duration 05/30/23 Pl[employer]ating Contractor Goal (LTG) Pt will have full AROM of L shoulder and neck w/o inc pain in order to allow greater ease w/ADLs LTG Duration 07/12/23 Quick dash Impairment 75 Short Term Goal (STG) Pt will improve quick dash score to no greater than 50 to show improved functional ability. STG Duration 05/30/23 [employer] Heating Contractor Goal (LTG) Pt will improve quick dash score to no greater than 20 to show improved functional ability. LTG Duration 07/12/23 Assessment Summary Assessment Pt improved LT and inferior Humeral glide during etienne today with skilled cues and use of mirror for self feedback corrections. Reviewed scapular ROM modified open book with improved ROM but limited going forward discomfort posterior R shld. Improved IR stretch behind back with education slow and gentle low to no pain range, improved sacrum> over R ilium tolerance. GOod response to MHP end tx for recovery R shld soreness/ discomfort. Physical Therapy Plan Frequency and Duration Frequency of Treatment 2x/Week Duration of treatment (weeks) 12 Plan of Care Start Date 04/19/23 Plan of Care End Date 07/12/23 Therapeutic Interventions Therapeutic Interventions Gait Training,Home Exercise Program,Joint Mobilizations, Manual Therapy,Neuromuscular Re-education,Orthotic/ Prosthetic Management,Patient/ Caregiver Education,Self-Care/ Home Management,Soft Tissue Mobilization,Taping, Therapeutic Activities, Therapeutic Exercises Modalities Cold Pack/Ice Massage,Electric Stimulation,Hot Packs, Infrared Therapy,Ultrasound Next Visit Focus/Plan Next Note Type Progress Note Next Visit Plan PN in 2 visits. Assess AROM progression added L shld ABD/ ER/HABD (short/long axis) POC: progress strength with reistance band and introduce gentle flex& abd strength, advance AAROM & AROM to improve shoulder mobility, continue manual: GH, AC, ST mobs, STM to pecs, bicep, & periscap
--- NOTE | 2023-06-04 18:14 | PT.OTN ---
Addendum entered and electronically signed by Olivia Schroeder, PT 06/05/23 08:02: PT direct supervision and direction to PT student. Original Note: Current Diagnoses Cervicalgia (06/04/23) Incomplete rotator cuff tear or rupture of left shoulder, not specified as traumatic (06/04/23) Abnormal posture (06/04/23) Weakness (06/04/23) Physical Therapy Treatment Note PT-OP-A Visit Information Start: 04/04/23 15:19 Freq: Status: Active Protocol: Document 06/04/23 13:01 BS (Rec: 06/04/23 14:08 BS [id number]) Out-Patient Physical Therapy Visit Information Visit Information Visit Type Treatment Note Visit Start Time 13:05 Visit Stop Time 13:47 Total Visit Minutes 42 Visit Number Number of REPRODUCER Visits 0 PT-OP-B Current Condition Start: 04/04/23 15:19 Freq: Status: Active Protocol: Document 04/19/23 10:14 [facility] (Rec: 04/19/23 11:38 [facility] [id number]) Current Condition History of Current Condition Onset Date 03/26 Current Complaints L shoulder arthroscopic debridement and History of Current Condition Pt reports shoulder surgery 06/07. Pt reports she started taking the sling off at home and reached accidently to take chavez and the shoulder was very painful after that. This was about 2 weeks out and she called the doctor and she talked to them. It was keeping her awake at night after this . Hydrocodone did work. Today she hasn't taken one yet. 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 She did PT and that helped the R and the pain is slowly coming back. She also had a MRI from Dr. Topete and there was notable cervical stenosis and in December did injections in her neck. That really helped the neck. 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 She had a scar tissue removal in [place]. She is pretty much retired at this point d/t pain . next follow up w/MD is may 08. Pt has the sling off all day (per MD) at home. She slept w/o it for the first time last night and slept on the couch. She rolled over onto it last night and that did wake her up. Treatment Goals Patient/Caregiver Goals be able to garden, do crafts, get dressed, clean, be able to do her hair, ride a bike and kayak PT-OP-C Subjective Start: 04/04/23 15:19 Freq: Status: Active Protocol: Document 06/04/23 13:01 BS (Rec: 06/04/23 14:08 [id number]) OP-PT Subjective Patient Comments Patient Comments Sometimes gets achy and still has muscle spasms but is much better than it used to be. worse part is getting arm behind back. Patient Questionnaires Quick Dash- Upper Extremity Quick Dash UE Score 20 PT-OP-F Manual Assessment Start: 04/04/23 15:19 Freq: Status: Active Protocol: Document 04/19/23 10:14 [facility] (Rec: 04/19/23 11:38 [facility] [id number]) Manual Assessments Soft Tissue Assessment Soft Tissue Mobility Assessment 4 good healing incisions; most last one most sensative; all have signfiicant tension Joint Mobility Assessment Joint Mobility Assessment 1st rib on L elevated PT-OP-J Posture/Palpation/Skin Start: 04/04/23 15:19 Freq: Status: Active Protocol: Document 04/19/23 10:14 [facility] (Rec: 04/19/23 11:38 [facility] [id number]) Posture Evaluation Comments Posture Comments humerus ant L>R in glenoid; L scap more abd, ant tipped and elevated PT-OP-K Range of Motion Start: 04/04/23 15:19 Freq: Status: Active Protocol: Document 06/04/23 13:01 BS (Rec: 06/04/23 14:08 [id number]) Shoulder Goniometric Range of Motion Shoulder Left Active Flexion 151 Extension 61 Abduction 151 External Rotation at 0 degrees Abduction 54 Internal Rotation Behind Back (text) L1 Comments pain w/ ER and IR PT-OP-M Strength Start: 04/04/23 15:19 Freq: Status: Active Protocol: Document 06/04/23 13:01 BS (Rec: 06/04/23 14:08 [id number]) Shoulder Strength Shoulder Manual Muscle Testing Right Flexion 5 Normal Extension 5 Normal Abduction (C5) 4- Good- External Rotation 4 Good Internal Rotation 5 Normal Left Flexion 3+ Fair+ Extension 5 Normal Abduction (C5) 3 Fair External Rotation 4 Good Internal Rotation 4+ Good+ Elbow/Forearm Strength Elbow and Forearm Manual Muscle Testing Right Flexion (C6) 5 Normal Extension (C7) 5 Normal Left Flexion (C6) 4 Good Extension (C7) 4 Good PT-OP-Q Treatments Start: 04/04/23 15:19 Freq: Status: Active Protocol: Document 06/04/23 13:01 BS (Rec: 06/04/23 14:08 BS [id number]) Therapeutic Exercises Sidelying Exercises ER Side left Resistance 1# & 2# DB Reps/Minutes 1x12 1 #, 1x6 2# Comments tactile cues rhomboid, LT, inferior glide ABD Sidelying Exercise Name AROM Side left Resistance AROM Reps/Minutes x8 Comments cues for palm facing forward Standing Exercises abd Standing Exercise Name AROM Side left Reps/Minutes x5 Comments attempted 1x w/ weight but unable Manual Therapy Treatment Soft Tissue Mobilization UE Body Location [place], [place] Mobilization Type Rolling,Strumming,Sustained Pressure,Other Intensity/Depth Moderate Body Position Supine Comments w/ gentle abd PROM Joint Mobilizations GH Joint L Grade II Body Position Supine Comments L GH inf & distraction FM PT-OP-R Modalities Start: 04/04/23 15:19 Freq: Status: Active Protocol: Document 06/01/23 10:44 SP (Rec: 06/01/23 11:40 SP [id number]) Hot Pack/Cold Pack Treatment MHP R shld Location LEft [place] 06/01/23 Patient Position Hooklying Treatment Duration (minutes) 7 Patient Tolerance Good Comments less pain L shld PT-OP-T Assessment and Plan Start: 04/04/23 15:19 Freq: Status: Active Protocol: Document 06/04/23 13:01 BS (Rec: 06/04/23 14:08 BS [id number]) Physical Therapy Assessment Goals strength Short Term Goal (STG) Pt will be indep w/HEP 05/14 - Pt reports compliance with HEP. STG Duration 05/30/23 Machine Straw Hat Presser Goal (LTG) Pt will score at least 4/5 MMT on LUE to show good strength in order for pt to be able to do typical active lifestyle. 06/04- progressing, <4/5 with abd & flex LTG Duration 07/12 activities Short Term Goal (STG) Pt will hve no pain w/cooking and dressing/bathing. 06/01/23: reports if moves wrong 01/22 eg going behind back, showering 3/10 pain. 06/04: cooking is fine, tries not to p/u objects with LUE. Bathing is fine, no trouble except washing back still painful/hard. 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 LTG Duration 07/12/23 ROM Short Term Goal (STG) Pt will have full PROM of L shoulder w/min discomfort 06/04- progressing, still painful muscel guarding with abd, but has greater range actively. STG Duration 05/30/23 Machine Straw Hat Presser Goal (LTG) Pt will have full AROM of L shoulder and neck w/o inc pain in order to allow greater ease w/ADLs LTG Duration 07/12/23 Quick dash Impairment 75 Short Term Goal (STG) Pt will improve quick dash score to no greater than 50 to show improved functional ability. 06/04- 20.45 STG Duration Met [facility]ci Goal (LTG) Pt will improve quick dash score to no greater than 20 to show improved functional ability. 06/04- scored 20.45 LTG Duration 07/12/23 Assessment Summary Assessment Pt seen today for PT progress note. Pt had significant improvements with AROM, improving in all ranges. IR/ER at L shld still cause some pain but not as bad as in past . Pt completed strength testing as well which she was limited most in flex & abd d/t pain with light resistance. Pt was limited in supine PROM most likely d/t muscle guarding to just over 90 degrees, however actively abd in supine was able to raise to >150 deg. Pt was able to progress to sidelying ER w/ 1 & 2# DB, reporting that it felt better w/ the weigh then w/o. Pt was unable to progress abd w/ weight this visit d/t pain but encouraged to continue to complete AROM. Pt will benefit from coninued skilled PT to address strength and ROM deficits still present and to progress to completing functional daily mobility w/o limitation d/t pain. Physical Therapy Plan Frequency and Duration Frequency of Treatment 2x/Week Duration of treatment (weeks) 12 Plan of Care Start Date 04/19/23 Plan of Care End Date 07/12/23 Next Visit Focus/Plan Next Note Type Treatment Note Next Visit Plan Assess AROM progression added L shld ABD/ER/HABD (short/long axis) POC: progress strength with reistance band and introduce gentle flex& abd strength, advance AAROM & AROM to improve shoulder mobility, continue manual: GH, AC, ST mobs, STM to pecs, bicep, & periscap
--- NOTE | 2023-06-06 18:13 | PT.OTN ---
Addendum entered and electronically signed by Olivia Schroeder, PT 06/11/23 08:07: PT direct supervision and direction to PT student. Original Note: Current Diagnoses Cervicalgia (06/06/23) Incomplete rotator cuff tear or rupture of left shoulder, not specified as traumatic (06/06/23) Abnormal posture (06/06/23) Weakness (06/06/23) Physical Therapy Treatment Note PT-OP-A Visit Information Start: 04/04/23 15:19 Freq: Status: Active Protocol: Document 06/06/23 10:33 BS (Rec: 06/06/23 12:26 BS [id number]) Out-Patient Physical Therapy Visit Information Visit Information Visit Type Treatment Note Visit Start Time 10:35 Visit Stop Time 11:15 Total Visit Minutes 40 Visit Number Number of ACCOUNTS PAYABLE COORDINATOR Visits 0 PT-OP-B Current Condition Start: 04/04/23 15:19 Freq: Status: Active Protocol: Document 04/19/23 10:14 [facility] (Rec: 04/19/23 11:38 [facility] [id number]) Current Condition History of Current Condition Onset Date 03/26 Current Complaints L shoulder arthroscopic debridement and History of Current Condition Pt reports shoulder surgery 06/07. Pt reports she started taking the sling off at home and reached accidently to take chavez and the shoulder was very painful after that. This was about 2 weeks out and she called the doctor and she talked to them. It was keeping her awake at night after this . Hydrocodone did work. Today she hasn't taken one yet. 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 She did PT and that helped the R and the pain is slowly coming back. She also had a MRI from Dr. Topete and there was notable cervical stenosis and in December did injections in her neck. That really helped the neck. 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 She had [place] scar tissue [place]. She is pretty much retired at this point d/t pain . next follow up w/MD is may 08. Pt has the sling off all day (per MD) at home. She slept w/o it for the first time last night and slept on the couch. She rolled over onto it last night and that did wake her up. Treatment Goals Patient/Caregiver Goals be able to garden, do crafts, get dressed, clean, be able to do her hair, ride a bike and kayak PT-OP-C Subjective Start: 04/04/23 15:19 Freq: Status: Active Protocol: Document 06/06/23 10:33 BS (Rec: 06/06/23 12:26 BS [id number]) OP-PT Subjective Patient Comments Patient Comments Pt did well overall until this morning when trying to take off pair of stiff boots which caused extreme pain throughout shoulder PT-OP-F Manual Assessment Start: 04/04/23 15:19 Freq: Status: Active Protocol: Document 04/19/23 10:14 [facility] (Rec: 04/19/23 11:38 [facility] [id number]) Manual Assessments Soft Tissue Assessment Soft Tissue Mobility Assessment 4 good healing incisions; most last one most sensative; all have signfiicant tension Joint Mobility Assessment Joint Mobility Assessment 1st rib on L elevated PT-OP-J Posture/Palpation/Skin Start: 04/04/23 15:19 Freq: Status: Active Protocol: Document 04/19/23 10:14 [facility] (Rec: 04/19/23 11:38 [facility] [id number]) Posture Evaluation Comments Posture Comments humerus ant L>R in glenoid; L scap more abd, ant tipped and elevated PT-OP-K Range of Motion Start: 04/04/23 15:19 Freq: Status: Active Protocol: Document 06/04/23 13:01 BS (Rec: 06/04/23 14:08 BS [id number]) Shoulder Goniometric Range of Motion Shoulder Left Active Flexion 151 Extension 61 Abduction 151 External Rotation at 0 degrees Abduction 54 Internal Rotation Behind Back (text) L1 Comments pain w/ ER and IR PT-OP-M Strength Start: 04/04/23 15:19 Freq: Status: Active Protocol: Document 06/04/23 13:01 BS (Rec: 06/04/23 14:08 BS [id number]) Shoulder Strength Shoulder Manual Muscle Testing Right Flexion 5 Normal Extension 5 Normal Abduction (C5) 4- Good- External Rotation 4 Good Internal Rotation 5 Normal Left Flexion 3+ Fair+ Extension 5 Normal Abduction (C5) 3 Fair External Rotation 4 Good Internal Rotation 4+ Good+ Elbow/Forearm Strength Elbow and Forearm Manual Muscle Testing Right Flexion (C6) 5 Normal Extension (C7) 5 Normal Left Flexion (C6) 4 Good Extension (C7) 4 Good PT-OP-Q Treatments Start: 04/04/23 15:19 Freq: Status: Active Protocol: Document 06/06/23 10:33 BS (Rec: 06/06/23 12:26 BS [id number]) Therapeutic Exercises Supine Exercises Horizontal abd Supine Exercise Name banded horizontal abd, 1 at 80 deg 1 at 120 deg Side bilateral Resistance peach band Reps/Minutes 2x15 Comments cues for tolerable range of motion Sidelying Exercises ER Side left Resistance 1# DB Reps/Minutes 1x12 Comments cues for painfree range ABD Sidelying Exercise Name AROM Side left Resistance AROM Reps/Minutes x8 Comments cues for palm facing forward Sitting Exercises pullys Sitting Exercise Name flex, scaption, abd Side left Resistance AAROM Equipment Used use mirror for self feedback corrections Reps/Minutes 12 ea Comments cued level shld, no trunk SB R Standing Exercises rows Standing Exercise Name Banded rows Side bilateral Resistance peach Reps/Minutes x15 Comments prog to orange band next time Manual Therapy Treatment Soft Tissue Mobilization UE Body Location [place], [place] Mobilization Type Rolling,Strumming,Sustained Pressure,Other Intensity/Depth Moderate Body Position Supine Joint Mobilizations GH Joint L Grade II Body Position Supine Comments L GH inf & post FM PT-OP-R Modalities Start: 04/04/23 15:19 Freq: Status: Active Protocol: Document 06/01/23 10:44 SP (Rec: 06/01/23 11:40 SP [id number]) Hot Pack/Cold Pack Treatment MHP R shld Location [place] 06/01/23 Patient Position Hooklying Treatment Duration (minutes) 7 Patient Tolerance Good Comments less pain L shld PT-OP-T Assessment and Plan Start: 04/04/23 15:19 Freq: Status: Active Protocol: Document 06/06/23 10:33 BS (Rec: 06/06/23 12:26 BS [id number]) Physical Therapy Assessment Goals strength Short Term Goal (STG) Pt will be indep w/HEP 05/14 - Pt reports compliance with HEP. STG Duration 05/30/23 Fisher Dip Net Goal (LTG) Pt will score at least 4/5 MMT on LUE to show good strength in order for pt to be able to do typical active lifestyle. 06/04- progressing, <4/5 with abd & flex LTG Duration 07/12 activities Short Term Goal (STG) Pt will hve no pain w/cooking and dressing/bathing. 06/01/23: reports if moves wrong 01/22 eg going behind back, showering /10 pain. 06/04: cooking is fine, tries not to p/u objects with LUE. Bathing is fine, no trouble except washing back still painful/hard. 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 LTG Duration 07/12/23 ROM Short Term Goal (STG) Pt will have full PROM of L shoulder w/min discomfort 06/04- progressing, still painful muscel guarding with abd, but has greater range actively. STG Duration 05/30/23 Fisher Dip Net Goal (LTG) Pt will have full AROM of L shoulder and neck w/o inc pain in order to allow greater ease w/ADLs LTG Duration 07/12/23 Quick dash Impairment 75 Short Term Goal (STG) Pt will improve quick dash score to no greater than 50 to show improved functional ability. 06/04- 20.45 STG Duration Met Residential Goal (LTG) Pt will improve quick dash score to no greater than 20 to show improved functional ability. 06/04- scored 20.45 LTG Duration 07/12/23 Assessment Summary Assessment Pt presented to day with sig pain from trying to farshad eoff leather boot this morning. Pt had inc muscle guarding today but was able to complete therex without sig increase in pain. Pt had two instances of severe spasms in shoulder than brought pt to tears during small mvmts. Discussed w/ pt to be careful with lifting in kitchen over next few days and to continue to ice w/ current flare up. Physical Therapy Plan Frequency and Duration Frequency of Treatment 2x/Week Duration of treatment (weeks) 12 Plan of Care Start Date 04/19/23 Plan of Care End Date 07/12/23 Next Visit Focus/Plan Next Note Type Treatment Note Next Visit Plan Assess AROM progression added L shld ABD/ER/HABD (short/long axis) POC: progress strength with reistance band and introduce gentle flex& abd strength, advance AAROM & AROM to improve shoulder mobility, continue manual: GH, AC, ST mobs, STM to pecs, bicep, & periscap
--- NOTE | 2023-06-12 13:48 | PT.OTN ---
Current Diagnoses Cervicalgia (06/12/23) Incomplete rotator cuff tear or rupture of left shoulder, not specified as traumatic (06/12/23) Abnormal posture (06/12/23) Weakness (06/12/23) Physical Therapy Treatment Note PT-OP-A Visit Information Start: 04/04/23 15:19 Freq: Status: Active Protocol: Document 06/12/23 13:05 SP (Rec: 06/12/23 13:48 SP [id number]) Out-Patient Physical Therapy Visit Information Visit Information Visit Type Treatment Note Visit Start Time 13:05 Visit Stop Time 13:48 Total Visit Minutes 43 Visit Number Number of HOT DIPPER Visits 1 PT-OP-B Current Condition Start: 04/04/23 15:19 Freq: Status: Active Protocol: Document 04/19/23 10:14 [facility] (Rec: 04/19/23 11:38 [facility] [id number]) Current Condition History of Current Condition Onset Date 03/26 Current Complaints L shoulder arthroscopic debridement and History of Current Condition Pt reports shoulder surgery 06/07. Pt reports she started taking the sling off at home and reached accidently to take chavez and the shoulder was very painful after that. This was about 2 weeks out and she called the doctor and she talked to them. It was keeping her awake at night after this . Hydrocodone did work. Today she hasn't taken one yet. 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 She did PT and that helped the R and the pain is slowly coming back. She also had a MRI from Dr. Topete and there was notable cervical stenosis and in December did injections in her neck. That really helped the neck. 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 She had a scar tissue removal in [facility]. She is pretty much retired at this point d/t pain . next follow up w/MD is may 08. Pt has the sling off all day (per MD) at home. She slept w/o it for the first time last night and slept on the couch. She rolled over onto it last night and that did wake her up. Treatment Goals Patient/Caregiver Goals be able to garden, do crafts, get dressed, clean, be able to do her hair, ride a bike and kayak PT-OP-C Subjective Start: 04/04/23 15:19 Freq: Status: Active Protocol: Document 06/12/23 13:05 SP (Rec: 06/12/23 13:48 SP [id number]) OP-PT Subjective Patient Comments Patient Comments Pt reports was pretty sore over L UT from neck to shoulder upon arrival. She stated affected sitting in the bleachers watching [employer] game, had to leave early and take muscle relaxer to help feel better. PT-OP-F Manual Assessment Start: 04/04/23 15:19 Freq: Status: Active Protocol: Document 04/19/23 10:14 [facility] (Rec: 04/19/23 11:38 [facility] [id number]) Manual Assessments Soft Tissue Assessment Soft Tissue Mobility Assessment 4 good healing incisions; most last one most sensative; all have signfiicant tension Joint Mobility Assessment Joint Mobility Assessment 1st rib on L elevated PT-OP-J Posture/Palpation/Skin Start: 04/04/23 15:19 Freq: Status: Active Protocol: Document 04/19/23 10:14 [facility] (Rec: 04/19/23 11:38 [facility] [id number]) Posture Evaluation Comments Posture Comments humerus ant L>R in glenoid; L scap more abd, ant tipped and elevated PT-OP-K Range of Motion Start: 04/04/23 15:19 Freq: Status: Active Protocol: Document 06/12/23 13:05 SP (Rec: 06/12/23 13:48 SP [id number]) Shoulder Goniometric Range of Motion Shoulder Left Active Shoulder ROM WFL No Testing Position Standing Flexion 151 Extension 61 Abduction 172 External Rotation at 0 degrees Abduction 60 Internal Rotation Behind Back (text) L1 Comments pain w/ ER and IR Standing 06/12/23: IR behind back Le FF 151 ABD 172 (21 deg gain) ER 60 deg (6 deg gain) PT-OP-M Strength Start: 04/04/23 15:19 Freq: Status: Active Protocol: Document 06/04/23 13:01 BS (Rec: 06/04/23 14:08 BS [id number]) Shoulder Strength Shoulder Manual Muscle Testing Right Flexion 5 Normal Extension 5 Normal Abduction (C5) 4- Good- External Rotation 4 Good Internal Rotation 5 Normal Left Flexion 3+ Fair+ Extension 5 Normal Abduction (C5) 3 Fair External Rotation 4 Good Internal Rotation 4+ Good+ Elbow/Forearm Strength Elbow and Forearm Manual Muscle Testing Right Flexion (C6) 5 Normal Extension (C7) 5 Normal Left Flexion (C6) 4 Good Extension (C7) 4 Good PT-OP-Q Treatments Start: 04/04/23 15:19 Freq: Status: Active Protocol: Document 06/12/23 13:05 SP (Rec: 06/12/23 13:48 SP [id number]) Therapeutic Exercises Sidelying Exercises open book Sidelying Exercise Name long arm: HEP reviewed Resistance sidelying R- AROM Reps/Minutes 5 reps long arm Comments at times states feels a lessening of blood circulation end feel. ABD Sidelying Exercise Name AROM Side left Resistance 1#> 2# Reps/Minutes x10 Comments tactil cue: inferior GH glide painfree range, GH rotation improved ecc IR Standing Exercises self STMs Standing Exercise Name ball wall, theracane Reps/Minutes ball better over UT IR stretch Standing Exercise Name added to HEP: declined HO Side right Resistance LUE assist RUE Equipment Used towel support Reps/Minutes 3 reps x3 breath hold Comments improved sacrum> R ilium flex Standing Exercise Name wall walk into doorway: FF Side left Resistance AAROM Equipment Used slide up Reps/Minutes 5 reps x 5 breaths Comments cued level shld, CS neutral ( no SB or shld shrug) Manual Therapy Treatment Soft Tissue Mobilization UE Body Location L P[place], teres, distal lat, subscap, Mobilization Type Rolling,Strumming,Sustained Pressure,Other Intensity/Depth Moderate Body Position Supine Comments MWM FF, GH IR/ER, small range punching motion superior Body Location L [place], LS Mobilization Type Strumming,Sustained Pressure, Other Intensity/Depth Superficial Body Position Hooklying Comments w/gentle MWM ROM head nods/ turns Joint Mobilizations Scapulothoracic Joint L Direction retraction/depression/ UR Grade II Body Position R sidely Comments PROM, MWM tactile cues FM ABD, open book GH Joint L Grade II Body Position Sidelying Comments L GH inf into ABD PT-OP-R Modalities Start: 04/04/23 15:19 Freq: Status: Active Protocol: Document 06/01/23 10:44 SP (Rec: 06/01/23 11:40 SP [id number]) Hot Pack/Cold Pack Treatment MHP R shld Location [place] 06/01/23 Patient Position Hooklying Treatment Duration (minutes) 7 Patient Tolerance Good Comments less pain L shld PT-OP-T Assessment and Plan Start: 04/04/23 15:19 Freq: Status: Active Protocol: Document 06/12/23 13:05 SP (Rec: 06/12/23 13:48 SP [id number]) Physical Therapy Assessment Goals strength Short Term Goal (STG) Pt will be indep w/HEP 05/14 - Pt reports compliance with HEP. STG Duration 05/30/23 Fdc Goal (LTG) Pt will score at least 4/5 MMT on LUE to show good strength in order for pt to be able to do typical active lifestyle. 06/04- progressing, <4/5 with abd & flex LTG Duration 07/12 activities Short Term Goal (STG) Pt will hve no pain w/cooking and dressing/bathing. 06/01/23: reports if moves wrong 01/22 eg going behind back, showering 09/22 pain. 06/04: cooking is fine, tries not to p/u objects with LUE. Bathing is fine, no trouble except washing back still painful/hard. 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 LTG Duration 07/12/23 ROM Short Term Goal (STG) Pt will have full PROM of L shoulder w/min discomfort 06/04- progressing, still painful muscel guarding with abd, but has greater range actively. STG Duration 05/30/23 Tornado Chaser Goal (LTG) Pt will have full AROM of L shoulder and neck w/o inc pain in order to allow greater ease w/ADLs LTG Duration 07/12/23 Quick dash Impairment 75 Short Term Goal (STG) Pt will improve quick dash score to no greater than 50 to show improved functional ability. 06/04- 20.45 STG Duration Met Fdc Goal (LTG) Pt will improve quick dash score to no greater than 20 to show improved functional ability. 06/04- scored 20.45 LTG Duration 07/12/23 Progress Towards Goals Progress Comments Standing 06/12/23: IR behind back L1 FF 151 (same at 06/04) ABD 172 (21 deg gain) ER 60 deg (6 deg gain) Assessment Summary Assessment Pt improved ROM (see measurements) into ABD and FF post manual with tactile cues scapulothoracic inferior glide and upward rotation less UT compensations. Pt tolerated increase resistance ABD in sidelying, cues for slower pacing control. Pt reports less tension in neck by end tx . Physical Therapy Plan Frequency and Duration Frequency of Treatment 2x/Week Duration of treatment (weeks) 12 Plan of Care Start Date 04/19/23 Plan of Care End Date 07/12/23 Therapeutic Interventions Therapeutic Interventions Gait Training,Home Exercise Program,Joint Mobilizations, Manual Therapy,Neuromuscular Re-education,Orthotic/ Prosthetic Management,Patient/ Caregiver Education,Self-Care/ Home Management,Soft Tissue Mobilization,Taping, Therapeutic Activities, Therapeutic Exercises Modalities Cold Pack/Ice Massage,Electric Stimulation,Hot Packs, Infrared Therapy,Ultrasound Next Visit Focus/Plan Next Note Type Treatment Note Next Visit Plan Update POC in 4 visits 07/05. Assess AROM progression added L shld ABD/ER/HABD (long axis with added resistance) POC: progress strength with reistance band and introduce gentle flex& abd strength, advance AAROM & AROM to improve shoulder mobility, continue manual: GH, AC, ST mobs, STM to pecs, bicep, & periscap
--- NOTE | 2023-06-19 14:33 | PT.OTN ---
Current Diagnoses Cervicalgia (06/19/23) Incomplete rotator cuff tear or rupture of left shoulder, not specified as traumatic (06/19/23) Abnormal posture (06/19/23) Weakness (06/19/23) Physical Therapy Treatment Note PT-OP-A Visit Information Start: 04/04/23 15:19 Freq: Status: Active Protocol: Document 06/19/23 13:49 SP (Rec: 06/19/23 14:35 SP [id number]) Out-Patient Physical Therapy Visit Information Visit Information Visit Type Treatment Note Visit Start Time 13:49 Visit Stop Time 14:33 Total Visit Minutes 44 Visit Number Number of IMPORT C[employer] CLEARING AGENT Visits 2 PT-OP-B Current Condition Start: 04/04/23 15:19 Freq: Status: Active Protocol: Document 04/19/23 10:14 [facility] (Rec: 04/19/23 11:38 [facility] [id number]) Current Condition History of Current Condition Onset Date 03/26 Current Complaints L shoulder arthroscopic debridement and History of Current Condition Pt reports shoulder surgery 06/07. Pt reports she started taking the sling off at home and reached accidently to take chavez and the shoulder was very painful after that. This was about 2 weeks out and she called the doctor and she talked to them. It was keeping her awake at night after this . Hydrocodone did work. Today she hasn't taken one yet. 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 She did PT and that helped the R and the pain is slowly coming back. She also had a MRI from Dr. Topete and there was notable cervical stenosis and in December did injections in her neck. That really helped the neck. 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 She had a scar tissue removal in [facility]. She is pretty much retired at this point d/t pain . next follow up w/MD is may 08. Pt has the sling off all day (per MD) at home. She slept w/o it for the first time last night and slept on the couch. She rolled over onto it last night and that did wake her up. Treatment Goals Patient/Caregiver Goals be able to garden, do crafts, get dressed, clean, be able to do her hair, ride a bike and kayak PT-OP-C Subjective Start: 04/04/23 15:19 Freq: Status: Active Protocol: Document 06/19/23 13:49 SP (Rec: 06/19/23 14:35 SP [id number]) OP-PT Subjective Patient Comments Patient Comments Pt reported neck and shld stiffness and painful. She wonders if spinal injections for spinal stenosis last December wearing off. PT-OP-F Manual Assessment Start: 04/04/23 15:19 Freq: Status: Active Protocol: Document 04/19/23 10:14 [facility] (Rec: 04/19/23 11:38 [facility] [id number]) Manual Assessments Soft Tissue Assessment Soft Tissue Mobility Assessment 4 good healing incisions; most last one most sensative; all have signfiicant tension Joint Mobility Assessment Joint Mobility Assessment 1st rib on L elevated PT-OP-J Posture/Palpation/Skin Start: 04/04/23 15:19 Freq: Status: Active Protocol: Document 04/19/23 10:14 [facility] (Rec: 04/19/23 11:38 [facility] [id number]) Posture Evaluation Comments Posture Comments humerus ant L>R in glenoid; L scap more abd, ant tipped and elevated PT-OP-K Range of Motion Start: 04/04/23 15:19 Freq: Status: Active Protocol: Document 06/12/23 13:05 SP (Rec: 06/12/23 13:48 SP [id number]) Shoulder Goniometric Range of Motion Shoulder Left Active Shoulder ROM WFL No Testing Position Standing Flexion 151 Extension 61 Abduction 172 External Rotation at 0 degrees Abduction 60 Internal Rotation Behind Back (text) L1 Comments pain w/ ER and IR Standing 06/12/23: IR behind back Le FF 151 ABD 172 (21 deg gain) ER 60 deg (6 deg gain) PT-OP-M Strength Start: 04/04/23 15:19 Freq: Status: Active Protocol: Document 06/04/23 13:01 BS (Rec: 06/04/23 14:08 BS [id number]) Shoulder Strength Shoulder Manual Muscle Testing Right Flexion 5 Normal Extension 5 Normal Abduction (C5) 4- Good- External Rotation 4 Good Internal Rotation 5 Normal Left Flexion 3+ Fair+ Extension 5 Normal Abduction (C5) 3 Fair External Rotation 4 Good Internal Rotation 4+ Good+ Elbow/Forearm Strength Elbow and Forearm Manual Muscle Testing Right Flexion (C6) 5 Normal Extension (C7) 5 Normal Left Flexion (C6) 4 Good Extension (C7) 4 Good PT-OP-Q Treatments Start: 04/04/23 15:19 Freq: Status: Active Protocol: Document 06/19/23 13:49 SP (Rec: 06/19/23 14:35 SP [id number]) Therapeutic Exercises Supine Exercises serratus press Supine Exercise Name added to HEP Side right Resistance 1# DB Reps/Minutes 5 reps x2 Comments cued no UT flex Supine Exercise Name HEP review Side left Resistance 1# DB Reps/Minutes x10 reps Comments slight serratus press needed, improved LT recruitment end feel Sidelying Exercises open book Sidelying Exercise Name long arm: HEP reviewed Side left Resistance AROM Reps/Minutes x6 reps Comments contact cues for scapular glide retraction ABD Sidelying Exercise Name AROM Side left Resistance 1# DB Reps/Minutes x10 Comments tactil cue: inferior GH glide painfree range, GH rotation improved ecc IR Standing Exercises wall clock Standing Exercise Name 11-12 o'clock- declined HO Side left Resistance G TB Reps/Minutes 5 reps Comments cued no UT recruitment wall walking Standing Exercise Name added to HEP- declined HO Side left Resistance G TB Reps/Minutes 20 ft Comments Cued no UT. ER Standing Exercise Name HEP reviewed Side left Resistance TB #2 orange latex free Reps/Minutes x10 Comments cues for no UT recruitment, ext Standing Exercise Name Banded ext Side left Equipment Used green latex anchored over door Reps/Minutes 2x10 Comments cue for relaxed shoulder to start Manual Therapy Treatment Soft Tissue Mobilization UE Body Location L Pec, teres, distal lat, subscap, Mobilization Type Rolling,Strumming,Sustained Pressure,Other Intensity/Depth Moderate Body Position Supine Comments MWM FF, GH IR/ER, small range punching motion superior Body Location L UT, LS Mobilization Type Strumming,Sustained Pressure, Other Intensity/Depth Superficial Body Position Hooklying Comments w/gentle MWM ROM head nods/ turns Joint Mobilizations Scapulothoracic Joint L Direction retraction/depression/ UR Grade II Body Position R sidely Comments PROM, MWM tactile cues FM ABD, open book GH Joint L Grade II Body Position Sidelying Comments L GH inf into ABD PT-OP-R Modalities Start: 04/04/23 15:19 Freq: Status: Active Protocol: Document 06/01/23 10:44 SP (Rec: 06/01/23 11:40 SP [id number]) Hot Pack/Cold Pack Treatment MHP R shld Location [place] 06/01/23 Patient Position Hooklying Treatment Duration (minutes) 7 Patient Tolerance Good Comments less pain L shld PT-OP-T Assessment and Plan Start: 04/04/23 15:19 Freq: Status: Active Protocol: Document 06/19/23 13:49 SP (Rec: 06/19/23 14:35 SP [id number]) Physical Therapy Assessment Goals strength Short Term Goal (STG) Pt will be indep w/HEP 05/14 - Pt reports compliance with HEP. STG Duration 05/30/23 Fpc Goal (LTG) Pt will score at least 4/5 MMT on LUE to show good strength in order for pt to be able to do typical active lifestyle. 06/04- progressing, <4/5 with abd & flex LTG Duration 07/12 activities Short Term Goal (STG) Pt will hve no pain w/cooking and dressing/bathing. 06/01/23: reports if moves wrong 01/22 eg going behind back, showering 09/22 pain. 06/04: cooking is fine, tries not to p/u objects with LUE. Bathing is fine, no trouble except washing back still painful/hard. 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 LTG Duration 07/12/23 ROM Short Term Goal (STG) Pt will have full PROM of L shoulder w/min discomfort 06/04- progressing, still painful muscel guarding with abd, but has greater range actively. STG Duration 05/30/23 Director Of Recreation Therapy Goal (LTG) Pt will have full AROM of L shoulder and neck w/o inc pain in order to allow greater ease w/ADLs LTG Duration 07/12/23 Quick dash Impairment 75 Short Term Goal (STG) Pt will improve quick dash score to no greater than 50 to show improved functional ability. 06/04- 20.45 STG Duration Met Director Of Recreation Therapy Goal (LTG) Pt will improve quick dash score to no greater than 20 to show improved functional ability. 06/04- scored 20.45 LTG Duration 07/12/23 Assessment Summary Assessment Pt good response to manual. Tolerated increase resisted ther ex serratus press, wall clock and wall walking with good posterior shld muscle tiring and painfree for strengthening progression. Cues as needed for set up and proper form, improved decrease to no UT recruitment corrections noted. Physical Therapy Plan Frequency and Duration Frequency of Treatment 2x/Week Duration of treatment (weeks) 12 Plan of Care Start Date 04/19/23 Plan of Care End Date 07/12/23 Therapeutic Interventions Therapeutic Interventions Gait Training,Home Exercise Program,Joint Mobilizations, Manual Therapy,Neuromuscular Re-education,Orthotic/ Prosthetic Management,Patient/ Caregiver Education,Self-Care/ Home Management,Soft Tissue Mobilization,Taping, Therapeutic Activities, Therapeutic Exercises Modalities Cold Pack/Ice Massage,Electric Stimulation,Hot Packs, Infrared Therapy,Ultrasound Next Visit Focus/Plan Next Note Type Treatment Note Next Visit Plan Update POC in 4 visits 07/05 ( exp 07/12), add more appts. Assess AROM progression added L shld ABD/ER/HABD (long axis with added resistance) POC: progress strength with reistance band and introduce gentle flex& abd strength, advance AAROM & AROM to improve shoulder mobility, continue manual: GH, AC, ST mobs, STM to pecs, bicep, & periscap
--- NOTE | 2023-06-26 13:00 | PT.OTN ---
Current Diagnoses Cervicalgia (06/26/23) Incomplete rotator cuff tear or rupture of left shoulder, not specified as traumatic (06/26/23) Abnormal posture (06/26/23) Weakness (06/26/23) Physical Therapy Treatment Note PT-OP-A Visit Information Start: 04/04/23 15:19 Freq: Status: Active Protocol: Document 06/26/23 12:17 SP (Rec: 06/26/23 13:03 SP [id number]) Out-Patient Physical Therapy Visit Information Visit Information Visit Type Treatment Note Visit Start Time 12:17 Visit Stop Time 13:00 Total Visit Minutes 43 Visit Number Number of INTERNET MARKETING CONSULTANT Visits 3 PT-OP-B Current Condition Start: 04/04/23 15:19 Freq: Status: Active Protocol: Document 04/19/23 10:14 [facility] (Rec: 04/19/23 11:38 [facility] [id number]) Current Condition History of Current Condition Onset Date 03/26 Current Complaints L shoulder arthroscopic debridement and History of Current Condition Pt reports shoulder surgery 06/07. Pt reports she started taking the sling off at home and reached accidently to take chavez and the shoulder was very painful after that. This was about 2 weeks out and she called the doctor and she talked to them. It was keeping her awake at night after this . Hydrocodone did work. Today she hasn't taken one yet. 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 She did PT and that helped the R and the pain is slowly coming back. She also had a MRI from Dr. Topete and there was notable cervical stenosis and in December did injections in her neck. That really helped the neck. 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 She had a scar tissue removal in [facility]. She is pretty much retired at this point d/t pain . next follow up w/MD is may 08. Pt has the sling off all day (per MD) at home. She slept w/o it for the first time last night and slept on the couch. She rolled over onto it last night and that did wake her up. Treatment Goals Patient/Caregiver Goals be able to garden, do crafts, get dressed, clean, be able to do her hair, ride a bike and kayak PT-OP-C Subjective Start: 04/04/23 15:19 Freq: Status: Active Protocol: Document 06/26/23 12:17 SP (Rec: 06/26/23 13:03 SP [id number]) OP-PT Subjective Patient Comments Patient Comments Pt reports has ortho follow up appt 07/06/23. She is pleased with progress making. Pt reports was told last ortho appt wants to see progression return to normal ROM/ activities. PT-OP-F Manual Assessment Start: 04/04/23 15:19 Freq: Status: Active Protocol: Document 04/19/23 10:14 LR (Rec: 04/19/23 11:38 [facility] [id number]) Manual Assessments Soft Tissue Assessment Soft Tissue Mobility Assessment 4 good healing incisions; most last one most sensative; all have signfiicant tension Joint Mobility Assessment Joint Mobility Assessment 1st rib on L elevated PT-OP-J Posture/Palpation/Skin Start: 04/04/23 15:19 Freq: Status: Active Protocol: Document 04/19/23 10:14 [facility] (Rec: 04/19/23 11:38 [facility] [id number]) Posture Evaluation Comments Posture Comments humerus ant L>R in glenoid; L scap more abd, ant tipped and elevated PT-OP-K Range of Motion Start: 04/04/23 15:19 Freq: Status: Active Protocol: Document 06/12/23 13:05 SP (Rec: 06/12/23 13:48 SP [id number]) Shoulder Goniometric Range of Motion Shoulder Left Active Shoulder ROM WFL No Testing Position Standing Flexion 151 Extension 61 Abduction 172 External Rotation at 0 degrees Abduction 60 Internal Rotation Behind Back (text) L1 Comments pain w/ ER and IR Standing 06/12/23: IR behind back Le FF 151 ABD 172 (21 deg gain) ER 60 deg (6 deg gain) PT-OP-M Strength Start: 04/04/23 15:19 Freq: Status: Active Protocol: Document 06/04/23 13:01 BS (Rec: 06/04/23 14:08 BS [id number]) Shoulder Strength Shoulder Manual Muscle Testing Right Flexion 5 Normal Extension 5 Normal Abduction (C5) 4- Good- External Rotation 4 Good Internal Rotation 5 Normal Left Flexion 3+ Fair+ Extension 5 Normal Abduction (C5) 3 Fair External Rotation 4 Good Internal Rotation 4+ Good+ Elbow/Forearm Strength Elbow and Forearm Manual Muscle Testing Right Flexion (C6) 5 Normal Extension (C7) 5 Normal Left Flexion (C6) 4 Good Extension (C7) 4 Good PT-OP-Q Treatments Start: 04/04/23 15:19 Freq: Status: Active Protocol: Document 06/26/23 12:17 SP (Rec: 06/26/23 13:03 SP [id number]) Cardio Equipment Upper Body Ergometer (UBE) Duration (Minutes) 6 RPM 50 Seat Position 11 Height 5 Other fwd/back 1 min each direction Therapeutic Exercises Sidelying Exercises open book Sidelying Exercise Name long arm: HEP reviewed Side left Resistance AROM Reps/Minutes x5 reps Comments contact cues for scapular glide retraction ABD Sidelying Exercise Name AROM- HEP reviewed Side left Resistance 1# DB> AROM end tx due to tiring with all other ex Reps/Minutes x10 Comments tactil cue: inferior GH glide painfree range, GH rotation improved ecc IR Standing Exercises throwing/eccentric abd& ER Side left Resistance Tb #2 Reps/Minutes x10 reps Comments cues for slow eccentric ROM wall walking Standing Exercise Name HEP- declined HO Side left Resistance G TB Reps/Minutes 20 ft Comments Cued no UT. ER Standing Exercise Name HEP reviewed: 90/90- declined HO Side left Resistance 2# DB Equipment Used front mirror for self feedback maintain abd approx 90 deg Reps/Minutes 2x10 Comments Mod cues with use mirror alignment IR stretch Standing Exercise Name reviewed HEP: declined HO Side right Resistance LUE assist RUE Equipment Used towel support Reps/Minutes 3 reps x3 breath hold Comments improved approx L3 PT-OP-R Modalities Start: 04/04/23 15:19 Freq: Status: Active Protocol: Document 06/01/23 10:44 SP (Rec: 06/01/23 11:40 SP [id number]) Hot Pack/Cold Pack Treatment MHP R shld Location [place] 06/01/23 Patient Position Hooklying Treatment Duration (minutes) 7 Patient Tolerance Good Comments less pain L shld PT-OP-T Assessment and Plan Start: 04/04/23 15:19 Freq: Status: Active Protocol: Document 06/26/23 12:17 SP (Rec: 06/26/23 13:03 SP [id number]) Physical Therapy Assessment Goals strength Short Term Goal (STG) Pt will be indep w/HEP 05/14 - Pt reports compliance with HEP. STG Duration 05/30/23 Senior Living Goal (LTG) Pt will score at least 4/5 MMT on LUE to show good strength in order for pt to be able to do typical active lifestyle. 06/04- progressing, <4/5 with abd & flex LTG Duration 07/12 activities Short Term Goal (STG) Pt will hve no pain w/cooking and dressing/bathing. 06/01/23: reports if moves wrong 01/22 eg going behind back, showering 09/22 pain. 06/04: cooking is fine, tries not to p/u objects with LUE. Bathing is fine, no trouble except washing back still painful/hard. 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 LTG Duration 07/12/23 ROM Short Term Goal (STG) Pt will have full PROM of L shoulder w/min discomfort 06/04- progressing, still painful muscel guarding with abd, but has greater range actively. STG Duration 05/30/23 Senior Living Goal (LTG) Pt will have full AROM of L shoulder and neck w/o inc pain in order to allow greater ease w/ADLs LTG Duration 07/12/23 Quick dash Impairment 75 Short Term Goal (STG) Pt will improve quick dash score to no greater than 50 to show improved functional ability. 06/04- 20.45 STG Duration Met Money Counter Goal (LTG) Pt will improve quick dash score to no greater than 20 to show improved functional ability. 06/04- scored 20.45 LTG Duration 07/12/23 Assessment Summary Assessment Pt good response to more dynamic resisted strengthening with L shoulder, trialed more open chain ther ex with good feedback muscle tiring reports . She declined hand outs, reports will recall fine. Physical Therapy Plan Frequency and Duration Frequency of Treatment 2x/Week Duration of treatment (weeks) 12 Plan of Care Start Date 04/19/23 Plan of Care End Date 07/12/23 Therapeutic Interventions Therapeutic Interventions Gait Training,Home Exercise Program,Joint Mobilizations, Manual Therapy,Neuromuscular Re-education,Orthotic/ Prosthetic Management,Patient/ Caregiver Education,Self-Care/ Home Management,Soft Tissue Mobilization,Taping, Therapeutic Activities, Therapeutic Exercises Modalities Cold Pack/Ice Massage,Electric Stimulation,Hot Packs, Infrared Therapy,Ultrasound Next Visit Focus/Plan Next Note Type Treatment Note Next Visit Plan Update POC in 3 visits 07/05 ( exp 07/12), add more appts. Assess AROM progression added L shld dynamic/open chain ther ex, recheck response.CHeck ortho f/u 07/06 report for PT progression feedback POC: progress strength with reistance band and introduce gentle flex& abd strength, advance AAROM & AROM to improve shoulder mobility, continue manual: GH, AC, ST mobs, STM to pecs, bicep, & periscap
--- NOTE | 2023-07-03 07:55 | PT-OP ANOTE ---
Pt cancelled today with [facility], having car troubles and unsure when and if today will be fixed. Confirmed 07/05 appt with PT for PN/ update POC if needed.
--- NOTE | 2023-07-05 13:49 | PT.OTN ---
Current Diagnoses Cervicalgia (07/05/23) Incomplete rotator cuff tear or rupture of left shoulder, not specified as traumatic (07/05/23) Abnormal posture (07/05/23) Weakness (07/05/23) Physical Therapy Treatment Note PT-OP-A Visit Information Start: 04/04/23 15:19 Freq: Status: Active Protocol: Document 07/05/23 10:32 [facility] (Rec: 07/05/23 11:23 [facility] [id number]) Out-Patient Physical Therapy Visit Information Visit Information Visit Type Progress Note Visit Start Time 10:33 Visit Stop Time 11:15 Total Visit Minutes 42 Visit Number Number of MACHINE PAN GREASER Visits 0 PT-OP-B Current Condition Start: 04/04/23 15:19 Freq: Status: Active Protocol: Document 04/19/23 10:14 [facility] (Rec: 04/19/23 11:38 [facility] [id number]) Current Condition History of Current Condition Onset Date 03/26 Current Complaints L shoulder arthroscopic debridement and History of Current Condition Pt reports shoulder surgery 06/07. Pt reports she started taking the sling off at home and reached accidently to take chavez and the shoulder was very painful after that. This was about 2 weeks out and she called the doctor and she talked to them. It was keeping her awake at night after this . Hydrocodone did work. Today she hasn't taken one yet. 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 She did PT and that helped the R and the pain is slowly coming back. She also had a MRI from Dr. Topete and there was notable cervical stenosis and in December did injections in her neck. That really helped the neck. 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 She had a scar tissue removal in [facility]. She is pretty much retired at this point d/t pain . next follow up w/ is may 08. Pt has the sling off all day (per MD) at home. She slept w/o it for the first time last night and slept on the couch. She rolled over onto it last night and that did wake her up. Treatment Goals Patient/Caregiver Goals be able to garden, do crafts, get dressed, clean, be able to do her hair, ride a bike and kayak PT-OP-C Subjective Start: 04/04/23 15:19 Freq: Status: Active Protocol: Document 07/05/23 10:32 [facility] (Rec: 07/05/23 11:23 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 It is a little sore still this AM PT-OP-F Manual Assessment Start: 04/04/23 15:19 Freq: Status: Active Protocol: Document 04/19/23 10:14 [facility] (Rec: 04/19/23 11:38 [facility] [id number]) Manual Assessments Soft Tissue Assessment Soft Tissue Mobility Assessment 4 good healing incisions; most last one most sensative; all have signfiicant tension Joint Mobility Assessment Joint Mobility Assessment 1st rib on L elevated PT-OP-J Posture/Palpation/Skin Start: 04/04/23 15:19 Freq: Status: Active Protocol: Document 04/19/23 10:14 [facility] (Rec: 04/19/23 11:38 [facility] [id number]) Posture Evaluation Comments Posture Comments humerus ant L>R in glenoid; L scap more abd, ant tipped and elevated PT-OP-K Range of Motion Start: 04/04/23 15:19 Freq: Status: Active Protocol: Document 07/05/23 10:32 [facility] (Rec: 07/05/23 11:23 [facility] [id number]) Cervical Spine Range of Motion Cervical Spine Active Degrees Flexion 60 Extension 46 Rotation Left 62 Rotation Right 76 Lateral Flexion Left 33 Lateral Flexion Right 46 Comments pain w/L SB and rot Shoulder Goniometric Range of Motion Shoulder Left Active Shoulder ROM WFL No Testing Position Standing Flexion 160 Extension 56 Abduction 172 External Rotation at 90 degrees 52 Abduction External Rotation at 0 degrees Abduction 62 Internal Rotation Behind Back (text) T11 Comments very difficult to get to 90 deg Right Active Flexion 161 Extension 76 Abduction 180 External Rotation at 90 degrees 83 Abduction External Rotation at 0 degrees Abduction 73 Internal Rotation Behind Back (text) T5 Comments IE Left Passive Flexion 174 Abduction 160 External Rotation at 90 degrees 93 Abduction Internal Rotation 56 PT-OP-M Strength Start: 04/04/23 15:19 Freq: Status: Active Protocol: Document 07/05/23 10:32 [facility] (Rec: 07/05/23 11:23 [facility] [id number]) Shoulder Strength Shoulder Manual Muscle Testing Right Flexion 5 Normal Extension 5 Normal Abduction (C5) 5 Normal External Rotation 4 Good Internal Rotation 5 Normal Left Flexion 4 Good Extension 5 Normal Abduction (C5) 3 Fair External Rotation 4 Good Internal Rotation 5 Normal PT-OP-Q Treatments Start: 04/04/23 15:19 Freq: Status: Active Protocol: Document 07/05/23 10:32 [facility] (Rec: 07/05/23 11:23 [facility] [id number]) Therapeutic Exercises Sidelying Exercises ABD Side left Resistance 1# Reps/Minutes x10 Sitting Exercises 1st rib Sitting Exercise Name self w/towel Side left Reps/Minutes 10 Comments SB w/head IR/ER Sitting Exercise Name 90/90 ER Side left Equipment Used 2# Reps/Minutes 10 Standing Exercises ER Side bilateral Resistance L3 band Reps/Minutes 15 Other Exercises isometric Other Exercise Name MMT shoulder Side bilateral Reps/Minutes 4 min AROM Other Exercise Name L AROM and PROM all planes Reps/Minutes 4 min Manual Therapy Treatment Soft Tissue Mobilization superior Body Location L UT, LS Mobilization Type Strumming,Sustained Pressure, Other Intensity/Depth Superficial Body Position Hooklying Comments w/gentle MWM ROM head nods/ turns Joint Mobilizations thoracic Comments T1-3 R transverse FM ribs Comments Rib 2 PA FM and rib 1-3 caudal FM PT-OP-R Modalities Start: 04/04/23 15:19 Freq: Status: Active Protocol: Document 06/01/23 10:44 SP (Rec: 06/01/23 11:40 SP [id number]) Hot Pack/Cold Pack Treatment MHP R shld Location [place] 06/01/23 Patient Position Hooklying Treatment Duration (minutes) 7 Patient Tolerance Good Comments less pain L shld PT-OP-T Assessment and Plan Start: 04/04/23 15:19 Freq: Status: Active Protocol: Document 07/05/23 10:32 [facility] (Rec: 07/05/23 11:23 [facility] [id number]) Physical Therapy Assessment Goals strength Short Term Goal (STG) Pt will be indep w/HEP 05/14 - Pt reports compliance with HEP. STG Duration achieved advancing as able Detention Goal (LTG) Pt will score at least 4/5 MMT on LUE to show good strength in order for pt to be able to do typical active lifestyle. 06/04- progressing, <4/5 with abd & flex 07/05-mostly achieved-abd limited LTG Duration 08/30 activities Short Term Goal (STG) Pt will hve no pain w/cooking and dressing/bathing. 06/01/23: reports if moves wrong 01/22 eg going behind back, showering 09/22 pain. 06/04: cooking is fine, tries not to p/u objects with LUE. Bathing is fine, no trouble except washing back still painful/hard. 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 07/05-has not tried kayaking, or kayaking has done some hair but noted pain LTG Duration 08/30 ROM Short Term Goal (STG) Pt will have full PROM of L shoulder w/min discomfort 06/04- progressing, still painful muscel guarding with abd, but has greater range actively. STG Duration achieved Deployment Technician Goal (LTG) Pt will have full AROM of L shoulder and neck w/o inc pain in order to allow greater ease w/ADLs 07/05-improving ease, some limit in end range LTG Duration 08/30 Quick dash Impairment 75 Short Term Goal (STG) Pt will improve quick dash score to no greater than 50 to show improved functional ability. 06/04- 20.45 STG Duration Met Detention Goal (LTG) Pt will improve quick dash score to no greater than 20 to show improved functional ability. 06/04- scored 20.45 07/05-no change LTG Duration 08/30/23 Assessment Summary Assessment Pt has made excellent progress w/PT and is showing much improved ROM and strength overall. TOday limitation was found from 1st rib that improved cervical mobility but pt had positive med n tension which is creating difficulty w/pt ability to abd shoulder and limiting strength. At this time, pt would bneeift from skilled PT to address further shoulder deficits and work on neural tension to improve ROM and strength of L shoulder and neck. Physical Therapy Plan Frequency and Duration Frequency of Treatment 1-2x/week Duration of treatment (weeks) 8 Plan of Care Start Date 07/05/23 Plan of Care End Date 08/30/23 Therapeutic Interventions Therapeutic Interventions Gait Training,Home Exercise Program,Joint Mobilizations, Manual Therapy,Neuromuscular Re-education,Orthotic/ Prosthetic Management,Patient/ Caregiver Education,Self-Care/ Home Management,Soft Tissue Mobilization,Taping, Therapeutic Activities, Therapeutic Exercises Modalities Cold Pack/Ice Massage,Electric Stimulation,Hot Packs, Infrared Therapy,Ultrasound Next Visit Focus/Plan Next Note Type Treatment Note Next Visit Plan work along neural pathway for median n to improve abd. work on abd stability
--- NOTE | 2023-07-05 13:49 | PT.OPPOC ---
Physical, Occupational & Speech Therapy At [facility] Current Diagnoses Cervicalgia (07/05/23) Incomplete rotator cuff tear or rupture of left shoulder, not specified as traumatic (07/05/23) Abnormal posture (07/05/23) Weakness (07/05/23) Visit Care Team Role Provider Type Crispin Reina MD Other Providers Non-Staff Specialty: Orthopedic Surgery Address: [address] [place] [address], [id number] Email: Jeffrey Hawkins DO Family Provider Physician Primary Care Provider Specialty: Family Practice Address: [address] [place] [address], [id number] Email: [email or web address] Jeffrey Gutierres PA-C Attending Provider Non-Staff Referring Provider Specialty: Medical Address: [address] [place] [address], [address] Phone: Email: Plan Of Care PT-OP-T Assessment and Plan Start: 04/04/23 15:19 Freq: Status: Active Protocol: Document 07/05/23 10:32 [facility] (Rec: 07/05/23 11:23 [facility] [id number]) Physical Therapy Assessment Goals strength Short Term Goal (STG) Pt will be indep w/HEP 05/14 - Pt reports compliance with HEP. STG Duration achieved advancing as able Correction Goal (LTG) Pt will score at least 4/5 MMT on LUE to show good strength in order for pt to be able to do typical active lifestyle. 06/04- progressing, <4/5 with abd & flex 07/05-mostly achieved-abd limited LTG Duration 08/30 activities Short Term Goal (STG) Pt will hve no pain w/cooking and dressing/bathing. 06/01/23: reports if moves wrong 01/22 eg going behind back, showering 3/10 pain. 06/04: cooking is fine, tries not to p/u objects with LUE. Bathing is fine, no trouble except washing back still painful/hard. 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 07/05-has not tried kayaking, or kayaking has done some hair but noted pain LTG Duration 08/30 ROM Short Term Goal (STG) Pt will have full PROM of L shoulder w/min discomfort 06/04- progressing, still painful muscel guarding with abd, but has greater range actively. STG Duration achieved Lean Consultant Goal (LTG) Pt will have full AROM of L shoulder and neck w/o inc pain in order to allow greater ease w/ADLs 07/05-improving ease, some limit in end range LTG Duration 08/30 Quick dash Impairment 75 Short Term Goal (STG) Pt will improve quick dash score to no greater than 50 to show improved functional ability. 06/04- 20.45 STG Duration Met Correction Goal (LTG) Pt will improve quick dash score to no greater than 20 to show improved functional ability. 06/04- scored 20.45 07/05-no change LTG Duration 08/30/23 Assessment Summary Assessment Pt has made excellent progress w/PT and is showing much improved ROM and strength overall. TOday limitation was found from 1st rib that improved cervical mobility but pt had positive med n tension which is creating difficulty w/pt ability to abd shoulder and limiting strength. At this time, pt would bneeift from skilled PT to address further shoulder deficits and work on neural tension to improve ROM and strength of L shoulder and neck. Physical Therapy Plan Frequency and Duration Frequency of Treatment 1-2x/week Duration of treatment (weeks) 8 Plan of Care Start Date 07/05/23 Plan of Care End Date 08/30/23 Therapeutic Interventions Therapeutic Interventions Gait Training,Home Exercise Program,Joint Mobilizations, Manual Therapy,Neuromuscular Re-education,Orthotic/ Prosthetic Management,Patient/ Caregiver Education,Self-Care/ Home Management,Soft Tissue Mobilization,Taping, Therapeutic Activities, Therapeutic Exercises Modalities Cold Pack/Ice Massage,Electric Stimulation,Hot Packs, Infrared Therapy,Ultrasound Next Visit Focus/Plan Next Note Type Treatment Note Next Visit Plan work along neural pathway for median n to improve abd. work on abd stability Plan of Care Dates Plan of Care Start Date 07/05/23 Plan of Care End Date 08/30/23 Electronically Signed by: Olivia Schroeder, PT 07/05/23 2880 If you are in agreement with this Plan of Care, please return a signed and dated copy. I have reviewed this Plan of Care and certify that the skilled therapy services above are required to meet the patient?s needs. Physician Signature Date Printed Name and Credentials Clinical Instructor Signature Printed Name and Credentials
--- NOTE | 2023-07-10 13:48 | PT.OTN ---
Current Diagnoses Cervicalgia (07/10/23) Incomplete rotator cuff tear or rupture of left shoulder, not specified as traumatic (07/10/23) Abnormal posture (07/10/23) Weakness (07/10/23) Physical Therapy Treatment Note PT-OP-A Visit Information Start: 04/04/23 15:19 Freq: Status: Active Protocol: Document 07/10/23 13:11 SP (Rec: 07/10/23 13:45 SP [id number]) Out-Patient Physical Therapy Visit Information Visit Information Visit Type Treatment Note Visit Start Time 13:08 Visit Stop Time 13:48 Total Visit Minutes 40 Visit Number Number of EXPERIMENTAL PHYSICIST Visits 1 PT-OP-B Current Condition Start: 04/04/23 15:19 Freq: Status: Active Protocol: Document 04/19/23 10:14 [facility] (Rec: 04/19/23 11:38 [facility] [id number]) Current Condition History of Current Condition Onset Date 03/26 Current Complaints L shoulder arthroscopic debridement and History of Current Condition Pt reports shoulder surgery 06/07. Pt reports she started taking the sling off at home and reached accidently to take chavez and the shoulder was very painful after that. This was about 2 weeks out and she called the doctor and she talked to them. It was keeping her awake at night after this . Hydrocodone did work. Today she hasn't taken one yet. 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 She did PT and that helped the R and the pain is slowly coming back. She also had a MRI from Dr. Topete and there was notable cervical stenosis and in December did injections in her neck. That really helped the neck. 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 She had a scar tissue removal in [facility]. She is pretty much retired at this point d/t pain . next follow up w/MD is may 08. Pt has the sling off all day (per MD) at home. She slept w/o it for the first time last night and slept on the couch. She rolled over onto it last night and that did wake her up. Treatment Goals Patient/Caregiver Goals be able to garden, do crafts, get dressed, clean, be able to do her hair, ride a bike and kayak PT-OP-C Subjective Start: 04/04/23 15:19 Freq: Status: Active Protocol: Document 07/10/23 13:11 SP (Rec: 07/10/23 13:45 SP [id number]) OP-PT Subjective Patient Comments Patient Comments Pt reports saw orthopedic Fri and thinks might have pinched nerve in neck and why so stiff and limted in cervical ROM radiculapathy down L arm and into lower leg, was told doesn 't think the radiculapathy is due to a rib dysfuction. She has a referral to field property loss specialist and will see what further imaging is requested. PT-OP-F Manual Assessment Start: 04/04/23 15:19 Freq: Status: Active Protocol: Document 04/19/23 10:14 [facility] (Rec: 04/19/23 11:38 [facility] [id number]) Manual Assessments Soft Tissue Assessment Soft Tissue Mobility Assessment 4 good healing incisions; most last one most sensative; all have signfiicant tension Joint Mobility Assessment Joint Mobility Assessment 1st rib on L elevated PT-OP-J Posture/Palpation/Skin Start: 04/04/23 15:19 Freq: Status: Active Protocol: Document 04/19/23 10:14 [facility] (Rec: 04/19/23 11:38 [facility] [id number]) Posture Evaluation Comments Posture Comments humerus ant L>R in glenoid; L scap more abd, ant tipped and elevated PT-OP-K Range of Motion Start: 04/04/23 15:19 Freq: Status: Active Protocol: Document 07/05/23 10:32 [facility] (Rec: 07/05/23 11:23 [facility] [id number]) Cervical Spine Range of Motion Cervical Spine Active Degrees Flexion 60 Extension 46 Rotation Left 62 Rotation Right 76 Lateral Flexion Left 33 Lateral Flexion Right 46 Comments pain w/L SB and rot Shoulder Goniometric Range of Motion Shoulder Left Active Shoulder ROM WFL No Testing Position Standing Flexion 160 Extension 56 Abduction 172 External Rotation at 90 degrees 52 Abduction External Rotation at 0 degrees Abduction 62 Internal Rotation Behind Back (text) T11 Comments very difficult to get to 90 deg Right Active Flexion 161 Extension 76 Abduction 180 External Rotation at 90 degrees 83 Abduction External Rotation at 0 degrees Abduction 73 Internal Rotation Behind Back (text) T5 Comments IE Left Passive Flexion 174 Abduction 160 External Rotation at 90 degrees 93 Abduction Internal Rotation 56 PT-OP-M Strength Start: 04/04/23 15:19 Freq: Status: Active Protocol: Document 07/05/23 10:32 [facility] (Rec: 07/05/23 11:23 [facility] [id number]) Shoulder Strength Shoulder Manual Muscle Testing Right Flexion 5 Normal Extension 5 Normal Abduction (C5) 5 Normal External Rotation 4 Good Internal Rotation 5 Normal Left Flexion 4 Good Extension 5 Normal Abduction (C5) 3 Fair External Rotation 4 Good Internal Rotation 5 Normal PT-OP-Q Treatments Start: 04/04/23 15:19 Freq: Status: Active Protocol: Document 07/10/23 13:11 SP (Rec: 07/10/23 13:45 SP [id number]) Therapeutic Exercises Sitting Exercises median & radial nerve glide Side left Reps/Minutes 3-5 reps Comments manual and seated Median/ radial standing IR/ER Sitting Exercise Name 90/90 ER Side left Equipment Used 2# Reps/Minutes 10 Comments stopped due to causing tingling in R shld into hands Standing Exercises D2 Flexion Standing Exercise Name reviewed Reps/Minutes x5 Comments good effort AROM, little shaky over bicep. ER Side bilateral Resistance L3 band between BUEs Equipment Used no towel roll Reps/Minutes 15 Comments cued good rhomboid /LT fac. IR Resistance TB#3 anchored at wall Equipment Used no towel roll Reps/Minutes 10 Comments cued rhomboid /LT fac. Other Exercises nerve glides Other Exercise Name 1. median (seated) 2. radial ( standing) Side left Resistance AAROM> AROM Reps/Minutes 3-5 reps Comments manual AAROM 1st set, AROM painfree range 2nd set AROM Other Exercise Name L shoulder AROM and PROM all planes, BCervical rotation PROM tolerant range Reps/Minutes 4 min Comments reports pain end feel. Manual Therapy Treatment Soft Tissue Mobilization UE Body Location L Pec, rhomboid, SA Mobilization Type Rolling,Strumming,Sustained Pressure,Other Intensity/Depth Moderate Body Position Supine Comments MWM FF, GH IR/ER, small range punching motion, ABD superior Body Location L UT, LS Mobilization Type Strumming,Sustained Pressure, Other Intensity/Depth Superficial Body Position Hooklying Comments w/gentle MWM ROM head nods/ turns PT-OP-R Modalities Start: 04/04/23 15:19 Freq: Status: Active Protocol: Document 06/01/23 10:44 SP (Rec: 06/01/23 11:40 SP [id number]) Hot Pack/Cold Pack Treatment MHP R shld Location [place] 06/01/23 Patient Position Hooklying Treatment Duration (minutes) 7 Patient Tolerance Good Comments less pain L shld PT-OP-T Assessment and Plan Start: 04/04/23 15:19 Freq: Status: Active Protocol: Document 07/10/23 13:11 SP (Rec: 07/10/23 13:45 SP [id number]) Physical Therapy Assessment Goals strength Short Term Goal (STG) Pt will be indep w/HEP 05/14 - Pt reports compliance with HEP. STG Duration achieved advancing as able Correction Goal (LTG) Pt will score at least 4/5 MMT on LUE to show good strength in order for pt to be able to do typical active lifestyle. 06/04- progressing, <4/5 with abd & flex 07/05-mostly achieved-abd limited LTG Duration 08/30 activities Short Term Goal (STG) Pt will hve no pain w/cooking and dressing/bathing. 06/01/23: reports if moves wrong 01/22 eg going behind back, showering 09/22 pain. 06/04: cooking is fine, tries not to p/u objects with LUE. Bathing is fine, no trouble except washing back still painful/hard. 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 07/05-has not tried kayaking, or kayaking has done some hair but noted pain LTG Duration 08/30 ROM Short Term Goal (STG) Pt will have full PROM of L shoulder w/min discomfort 06/04- progressing, still painful muscel guarding with abd, but has greater range actively. STG Duration achieved National Sales Associate Goal (LTG) Pt will have full AROM of L shoulder and neck w/o inc pain in order to allow greater ease w/ADLs 07/05-improving ease, some limit in end range LTG Duration 08/30 Quick dash Impairment 75 Short Term Goal (STG) Pt will improve quick dash score to no greater than 50 to show improved functional ability. 06/04- 20.45 STG Duration Met Correction Goal (LTG) Pt will improve quick dash score to no greater than 20 to show improved functional ability. 06/04- scored 20.45 07/05-no change LTG Duration 08/30/23 Assessment Summary Assessment Pt improved cervical ROM post manual but reports has pain end feel. Pt reports decreased tingling and no pain in hand during median and radial nerve glide initiated this tx, added to HEP with good understanding. Good effort and noted shaky weakness during resisted ther ex but painfree end of tx. Physical Therapy Plan Frequency and Duration Frequency of Treatment 1-2x/week Duration of treatment (weeks) 8 Plan of Care Start Date 07/05/23 Plan of Care End Date 08/30/23 Therapeutic Interventions Therapeutic Interventions Gait Training,Home Exercise Program,Joint Mobilizations, Manual Therapy,Neuromuscular Re-education,Orthotic/ Prosthetic Management,Patient/ Caregiver Education,Self-Care/ Home Management,Soft Tissue Mobilization,Taping, Therapeutic Activities, Therapeutic Exercises Modalities Cold Pack/Ice Massage,Electric Stimulation,Hot Packs, Infrared Therapy,Ultrasound Next Visit Focus/Plan Next Note Type Treatment Note Next Visit Plan Recheck HEP. Ask ortho follow up referral. POC: work along neural pathway for median n to improve abd. work on abd stability
--- NOTE | 2023-07-23 15:21 | PT.OTN ---
Current Diagnoses Cervicalgia (07/23/23) Incomplete rotator cuff tear or rupture of left shoulder, not specified as traumatic (07/23/23) Abnormal posture (07/23/23) Weakness (07/23/23) Physical Therapy Treatment Note PT-OP-A Visit Information Start: 04/04/23 15:19 Freq: Status: Active Protocol: Document 07/23/23 14:36 SP (Rec: 07/23/23 15:59 SP [id number]) Out-Patient Physical Therapy Visit Information Visit Information Visit Type Treatment Note Visit Note 08/08 using new referral 2023. Visit Start Time 14:36 Visit Stop Time 15:21 Total Visit Minutes 45 Visit Number Number of CONVEYOR CONSOLE OPERATOR Visits 2 PT-OP-B Current Condition Start: 04/04/23 15:19 Freq: Status: Active Protocol: Document 04/19/23 10:14 [facility] (Rec: 04/19/23 11:38 [facility] [id number]) Current Condition History of Current Condition Onset Date 03/26 Current Complaints L shoulder arthroscopic debridement and History of Current Condition Pt reports shoulder surgery 06/07. Pt reports she started taking the sling off at home and reached accidently to take chavez and the shoulder was very painful after that. This was about 2 weeks out and she called the doctor and she talked to them. It was keeping her awake at night after this . Hydrocodone did work. Today she hasn't taken one yet. 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 She did PT and that helped the R and the pain is slowly coming back. She also had a MRI from Dr. Topete and there was notable cervical stenosis and in December did injections in her neck. That really helped the neck. 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 She had a scar tissue removal in [facility]. She is pretty much retired at this point d/t pain . next follow up w/ is may 08. Pt has the sling off all day (per MD) at home. She slept w/o it for the first time last night and slept on the couch. She rolled over onto it last night and that did wake her up. Treatment Goals Patient/Caregiver Goals be able to garden, do crafts, get dressed, clean, be able to do her hair, ride a bike and kayak PT-OP-C Subjective Start: 04/04/23 15:19 Freq: Status: Active Protocol: Document 07/23/23 14:36 SP (Rec: 07/23/23 15:59 SP [id number]) OP-PT Subjective Patient Comments Patient Comments Pt reports was in ER for bad headaches and given med but it causes challenges focus and think well. She saw ortho recently and recommended follow up 6-8 weeks but concerned with numbness tingling into arm, went to see Dr Hawkins today changing med to assist pain and referring to neutrologist due to concerns as well of tingling in LUE . Is packing house self to move but hard to focus with new med, hoping change will be better and limiting by pain although pleased with AROM gaining. Patient Questionnaires Quick Dash- Upper Extremity Quick Dash UE Score 18.18 Quick Dash UE Impairment 1 to 19% Impaired (Score 1-19) PT-OP-F Manual Assessment Start: 04/04/23 15:19 Freq: Status: Active Protocol: Document 04/19/23 10:14 [facility] (Rec: 04/19/23 11:38 [facility] [id number]) Manual Assessments Soft Tissue Assessment Soft Tissue Mobility Assessment 4 good healing incisions; most last one most sensative; all have signfiicant tension Joint Mobility Assessment Joint Mobility Assessment 1st rib on L elevated PT-OP-J Posture/Palpation/Skin Start: 04/04/23 15:19 Freq: Status: Active Protocol: Document 04/19/23 10:14 [facility] (Rec: 04/19/23 11:38 [facility] [id number]) Posture Evaluation Comments Posture Comments humerus ant L>R in glenoid; L scap more abd, ant tipped and elevated PT-OP-K Range of Motion Start: 04/04/23 15:19 Freq: Status: Active Protocol: Document 07/05/23 10:32 [facility] (Rec: 07/05/23 11:23 [facility] [id number]) Cervical Spine Range of Motion Cervical Spine Active Degrees Flexion 60 Extension 46 Rotation Left 62 Rotation Right 76 Lateral Flexion Left 33 Lateral Flexion Right 46 Comments pain w/L SB and rot Shoulder Goniometric Range of Motion Shoulder Left Active Shoulder ROM WFL No Testing Position Standing Flexion 160 Extension 56 Abduction 172 External Rotation at 90 degrees 52 Abduction External Rotation at 0 degrees Abduction 62 Internal Rotation Behind Back (text) T11 Comments very difficult to get to 90 deg Right Active Flexion 161 Extension 76 Abduction 180 External Rotation at 90 degrees 83 Abduction External Rotation at 0 degrees Abduction 73 Internal Rotation Behind Back (text) T5 Comments IE Left Passive Flexion 174 Abduction 160 External Rotation at 90 degrees 93 Abduction Internal Rotation 56 PT-OP-M Strength Start: 04/04/23 15:19 Freq: Status: Active Protocol: Document 07/05/23 10:32 LR (Rec: 07/05/23 11:23 [facility] [id number]) Shoulder Strength Shoulder Manual Muscle Testing Right Flexion 5 Normal Extension 5 Normal Abduction (C5) 5 Normal External Rotation 4 Good Internal Rotation 5 Normal Left Flexion 4 Good Extension 5 Normal Abduction (C5) 3 Fair External Rotation 4 Good Internal Rotation 5 Normal PT-OP-Q Treatments Start: 04/04/23 15:19 Freq: Status: Active Protocol: Document 07/23/23 14:36 SP (Rec: 07/23/23 15:59 SP [id number]) Gym Equipment Cable Column (Body Solid) Rows Details eccentric stretch Resistance 2.5 plates Reps/Time x15 pull down Details under and over hand Resistance 2.5 plates Reps/Time x15 Shuttle Rebound throw/eccentric catch Exercise Details green small ball Reps/Duration 10 reps Comments challenging placement/body positioning- muscle tiring Therapeutic Exercises Supine Exercises rhythmic Stab Supine Exercise Name FF 90 deg/ hooklying Side bilateral Resistance 45cm tball Reps/Minutes 20 sec, x2 Comments cued let head rest on pillow, no UT recruitment/tongue ligth hard palate Standing Exercises HABD Side left Resistance TB #3 Reps/Minutes x 21 reps Comments good tiring effort, cued level shld/no UT D2 Flexion Standing Exercise Name reviewed Side left Resistance 2# DB Equipment Used front mirror for level shld self corrections Reps/Minutes 2x8 reps Comments cued slow, scap decline with scaption range ER Standing Exercise Name ABD 45 deg & ER<>IR Side bilateral Resistance 2# DB Equipment Used no towel roll Reps/Minutes 15 Comments cued good rhomboid /LT fac. IR stretch Standing Exercise Name reviewed HEP: trying to remember at home Side right Resistance LUE assist RUE Equipment Used towel support Reps/Minutes 3 reps x3 breath hold Comments approx L1/T12 Manual Therapy Treatment Joint Mobilizations Scapulothoracic Joint L Direction retraction/depression/ UR Grade II Body Position R sidely Comments PROM, MWM tactile cues FM ABD, open book GH Joint L Grade II Body Position Sidelying Comments L GH inf into ABD Manual Techniques PROM Type FF approx 170 deg, ABD FPROM Body Location L shld Body Position Hooklying Reps/Duration 5 reps each Comments tight end feel FF PT-OP-R Modalities Start: 04/04/23 15:19 Freq: Status: Active Protocol: Document 06/01/23 10:44 SP (Rec: 06/01/23 11:40 SP [id number]) Hot Pack/Cold Pack Treatment MHP R shld Location [place] 06/01/23 Patient Position Hooklying Treatment Duration (minutes) 7 Patient Tolerance Good Comments less pain L shld PT-OP-T Assessment and Plan Start: 04/04/23 15:19 Freq: Status: Active Protocol: Document 07/23/23 14:36 SP (Rec: 07/23/23 15:59 SP [id number]) Physical Therapy Assessment Goals strength Short Term Goal (STG) Pt will be indep w/HEP 05/14 - Pt reports compliance with HEP. STG Duration achieved advancing as able Pet Care Associate Goal (LTG) Pt will score at least 4/5 MMT on LUE to show good strength in order for pt to be able to do typical active lifestyle. 06/04- progressing, <4/5 with abd & flex 07/05-mostly achieved-abd limited 07/23/23: progressing: able complete D2 flexion with 2# DB LTG Duration 08/30 progressing 07/23/23 activities Short Term Goal (STG) Pt will hve no pain w/cooking and dressing/bathing. 06/01/23: reports if moves wrong 01/22 eg going behind back, showering / pain. 06/04: cooking is fine, tries not to p/u objects with LUE. Bathing is fine, no trouble except washing back still painful/hard. 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 07/05-has not tried kayaking, or kayaking has done some hair but noted pain 07/23/23: achieved, able to perform rowing machine at son' s with no pain LTG Duration 08/30 achieved 07/23/23 ROM Short Term Goal (STG) Pt will have full PROM of L shoulder w/min discomfort 06/04- progressing, still painful muscel guarding with abd, but has greater range actively. STG Duration achieved Pet Care Associate Goal (LTG) Pt will have full AROM of L shoulder and neck w/o inc pain in order to allow greater ease w/ADLs 07/05-improving ease, some limit in end range 07/23/23: progressing: PROM tight end feel approx 170deg FF, 180 ABD PROM LTG Duration 08/30 progressing 07/23/23 Quick dash Impairment 75 Short Term Goal (STG) Pt will improve quick dash score to no greater than 50 to show improved functional ability. 06/04- 20.45 STG Duration Met Pet Care Associate Goal (LTG) Pt will improve quick dash score to no greater than 20 to show improved functional ability. 06/04- scored 20.45 07/05-no change 07/23/23: improved scored 18.18 (1-19% impaired) LTG Duration 08/30/23 improved 07/23/23 Progress Towards Goals Progress Comments Improved Quick Dash by 1.42 points= 18.18 (1-19% impaired) Assessment Summary Assessment Pt worked hard, good muscle tiring and effort today's tx. Pt making gains in ROM and strength OH/scaption ROM against resistance, improved for in front mirror and cues for no UT recruitment on L. Improved Quick Dash by 1.42 points due to tingling in LUE into OH motions but doesn't let it limit her. She is packing her house up and challenged with performing exercises. Ed for take time out for HEP, jaime [place]. Pt would benefit from continued PT to progress and recommended by physician. Will update us on neutrologist referral for tingling LUE. Physical Therapy Plan Frequency and Duration Frequency of Treatment 1-2x/week Duration of treatment (weeks) 8 Plan of Care Start Date 07/05/23 Plan of Care End Date 08/30/23 Therapeutic Interventions Therapeutic Interventions Gait Training,Home Exercise Program,Joint Mobilizations, Manual Therapy,Neuromuscular Re-education,Orthotic/ Prosthetic Management,Patient/ Caregiver Education,Self-Care/ Home Management,Soft Tissue Mobilization,Taping, Therapeutic Activities, Therapeutic Exercises Modalities Cold Pack/Ice Massage,Electric Stimulation,Hot Packs, Infrared Therapy,Ultrasound Next Visit Focus/Plan Next Note Type Treatment Note Next Visit Plan Continue progress ROM/strength LUE, take measurements. Due for 5th visit in 3 appts. POC: work along neural pathway for median n to improve abd. work on abd stability
--- NOTE | 2023-08-09 13:45 | PT.OTN ---
Current Diagnoses Cervicalgia (08/09/23) Incomplete rotator cuff tear or rupture of left shoulder, not specified as traumatic (08/09/23) Abnormal posture (08/09/23) Weakness (08/09/23) Physical Therapy Treatment Note PT-OP-A Visit Information Start: 04/04/23 15:19 Freq: Status: Active Protocol: Document 08/09/23 13:02 SP (Rec: 08/09/23 13:48 SP [id number]) Out-Patient Physical Therapy Visit Information Visit Information Visit Type Treatment Note Visit Note 09/08 using new referral 2023. Visit Start Time 13:02 Visit Stop Time 13:45 Visit Number Number of DIRECTOR MEDICAL AFFAIRS Visits 3 PT-OP-B Current Condition Start: 04/04/23 15:19 Freq: Status: Active Protocol: Document 04/19/23 10:14 [facility] (Rec: 04/19/23 11:38 [facility] [id number]) Current Condition History of Current Condition Onset Date 03/26 Current Complaints L shoulder arthroscopic debridement and History of Current Condition Pt reports shoulder surgery 06/07. Pt reports she started taking the sling off at home and reached accidently to take chavez and the shoulder was very painful after that. This was about 2 weeks out and she called the doctor and she talked to them. It was keeping her awake at night after this . Hydrocodone did work. Today she hasn't taken one yet. 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 She did PT and that helped the R and the pain is slowly coming back. She also had a MRI from Dr. Topete and there was notable cervical stenosis and in December did injections in her neck. That really helped the neck. 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 She had a scar tissue removal in [facility]. She is pretty much retired at this point d/t pain . next follow up w/MD is may 08. Pt has the sling off all day (per MD) at home. She slept w/o it for the first time last night and slept on the couch. She rolled over onto it last night and that did wake her up. Treatment Goals Patient/Caregiver Goals be able to garden, do crafts, get dressed, clean, be able to do her hair, ride a bike and kayak PT-OP-C Subjective Start: 04/04/23 15:19 Freq: Status: Active Protocol: Document 08/09/23 13:02 SP (Rec: 08/09/23 13:48 SP [id number]) OP-PT Subjective Patient Comments Patient Comments Pt reported good muscle effort last tx: was sore, bicep took little longer recover by yesterday. She reported did some rowing machine at son's over weekend, and felt well. She reports reaching behind her back seems to be the most challenging and pain, will try to incorporate home more. PT-OP-F Manual Assessment Start: 04/04/23 15:19 Freq: Status: Active Protocol: Document 04/19/23 10:14 [facility] (Rec: 04/19/23 11:38 [facility] [id number]) Manual Assessments Soft Tissue Assessment Soft Tissue Mobility Assessment 4 good healing incisions; most last one most sensative; all have signfiicant tension Joint Mobility Assessment Joint Mobility Assessment 1st rib on L elevated PT-OP-J Posture/Palpation/Skin Start: 04/04/23 15:19 Freq: Status: Active Protocol: Document 04/19/23 10:14 [facility] (Rec: 04/19/23 11:38 [facility] [id number]) Posture Evaluation Comments Posture Comments humerus ant L>R in glenoid; L scap more abd, ant tipped and elevated PT-OP-K Range of Motion Start: 04/04/23 15:19 Freq: Status: Active Protocol: Document 08/09/23 13:02 SP (Rec: 08/09/23 13:48 SP [id number]) Shoulder Goniometric Range of Motion Shoulder Left Active Shoulder ROM WFL Yes Testing Position Standing Flexion 180 Extension 68 Abduction 180 External Rotation at 0 degrees Abduction 78 Internal Rotation Behind Back (text) T11 Comments Gains LUE AROM standing: FF: 20 deg, 180 deg ABD 8 deg, 180 ER 16 deg, 78 deg Ext 12 deg, 68 deg PT-OP-M Strength Start: 04/04/23 15:19 Freq: Status: Active Protocol: Document 07/05/23 10:32 LR (Rec: 07/05/23 11:23 [facility] [id number]) Shoulder Strength Shoulder Manual Muscle Testing Right Flexion 5 Normal Extension 5 Normal Abduction (C5) 5 Normal External Rotation 4 Good Internal Rotation 5 Normal Left Flexion 4 Good Extension 5 Normal Abduction (C5) 3 Fair External Rotation 4 Good Internal Rotation 5 Normal PT-OP-Q Treatments Start: 04/04/23 15:19 Freq: Status: Active Protocol: Document 08/09/23 13:02 SP (Rec: 08/09/23 13:48 SP [id number]) Gym Equipment Cable Column (Body Solid) Rows Resistance 2.5 plates Reps/Time 15, 10 reps pull down Details under and over hand Resistance 2.5 plates Reps/Time x15 total, stretch last rep Shuttle Rebound throw/eccentric catch Exercise Details green> red small wt ball Reps/Duration 10 reps Comments improved form with increase wt and cues postural/UE corrections Therapeutic Exercises Supine Exercises foam roller Supine Exercise Name snow allison Side bilateral Reps/Minutes 6 reps Comments cues painfree ROM elevated off floor, full AROM Prone Exercises elbow plank Prone Exercise Name trialed in PT off feet/elbows Reps/Minutes 30 sec Comments painfree, good form Standing Exercises wall push up Standing Exercise Name 1. W 2. Yessy Side bilateral Resistance AROM Equipment Used incline wall Reps/Minutes 8 reps each Comments good periscap muscle tiring D2 Flexion Standing Exercise Name reviewed Side left Resistance 2# DB Equipment Used front mirror for level shld self corrections Reps/Minutes 8, 10 reps Comments cued slow, scap decline with scaption range throwing/eccentric abd& ER Side left Resistance Tb #2 Reps/Minutes x10 reps Comments cues for slow eccentric ROM then quicker eccentric wall walking Standing Exercise Name FF 90 deg, lateral Side left Resistance G TB Reps/Minutes 20 ft 1 lap Comments Cued allow segmental eccentric return LUE IR stretch Standing Exercise Name reviewed HEP: trying to remember at home Side right Resistance LUE assist RUE Equipment Used towel support Reps/Minutes 3 reps x5 breath hold Comments approx T10 walk away Standing Exercise Name FF stretch Side bilateral Equipment Used rail bottom step Reps/Minutes 20 SH x3 Comments good stretch, chest floor emphasis PT-OP-R Modalities Start: 04/04/23 15:19 Freq: Status: Active Protocol: Document 06/01/23 10:44 SP (Rec: 06/01/23 11:40 SP [id number]) Hot Pack/Cold Pack Treatment MHP R shld Location [place] 06/01/23 Patient Position Hooklying Treatment Duration (minutes) 7 Patient Tolerance Good Comments less pain L shld PT-OP-T Assessment and Plan Start: 04/04/23 15:19 Freq: Status: Active Protocol: Document 08/09/23 13:02 SP (Rec: 08/09/23 13:48 SP [id number]) Physical Therapy Assessment Goals strength Short Term Goal (STG) Pt will be indep w/HEP 05/14 - Pt reports compliance with HEP. STG Duration achieved advancing as able Custodial Goal (LTG) Pt will score at least 4/5 MMT on LUE to show good strength in order for pt to be able to do typical active lifestyle. 06/04- progressing, <4/5 with abd & flex 07/05-mostly achieved-abd limited 07/23/23: progressing: able complete D2 flexion with 2# DB LTG Duration 08/30 progressing 07/23/23 activities Short Term Goal (STG) Pt will hve no pain w/cooking and dressing/bathing. 06/01/23: reports if moves wrong 01/22 eg going behind back, showering 09/22 pain. 06/04: cooking is fine, tries not to p/u objects with LUE. Bathing is fine, no trouble except washing back still painful/hard. 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 07/05-has not tried kayaking, or kayaking has done some hair but noted pain 07/23/23: achieved, able to perform rowing machine at son' s with no pain LTG Duration 08/30 achieved 07/23/23 ROM Short Term Goal (STG) Pt will have full PROM of L shoulder w/min discomfort 06/04- progressing, still painful muscel guarding with abd, but has greater range actively. STG Duration achieved Custodial Goal (LTG) Pt will have full AROM of L shoulder and neck w/o inc pain in order to allow greater ease w/ADLs 07/05-improving ease, some limit in end range 07/23/23: progressing: PROM tight end feel approx 170deg FF, 180 ABD PROM 08/08/23: GOAL MET: no increased pain WNL L UE AROM. ADL on feet over time causes neck pain with spurs has in them, awaiting neck injections . LTG Duration 08/30 GOAL MET 08/08 Quick dash Impairment 75 Short Term Goal (STG) Pt will improve quick dash score to no greater than 50 to show improved functional ability. 06/04- 20.45 STG Duration Met Custodial Goal (LTG) Pt will improve quick dash score to no greater than 20 to show improved functional ability. 06/04- scored 20.45 07/05-no change 07/23/23: improved scored 18.18 (1-19% impaired) LTG Duration 08/30/23 improved 07/23/23 Progress Towards Goals Progress Comments Gains LUE AROM standing: FF: 20 deg, 180 deg ABD 8 deg, 180 ER 16 deg, 78 deg Ext 12 deg, 68 deg Assessment Summary Assessment Pt making gains in ROM, see above measurements. Good tiring effort during ther ex today, continues to require cues for Rhomboid/LT engagement for scapular stabilization to decrease UT recruitment. Painfree during trial plank for feedback on WB tolerance for future appts. She challenged with reaching behind her back and where continues to experience pain, improver ROM with IR stretching review, cues for gentle stretch with good carryover to continue at home. Physical Therapy Plan Frequency and Duration Frequency of Treatment 1-2x/week Duration of treatment (weeks) 8 Plan of Care Start Date 07/05/23 Plan of Care End Date 08/30/23 Therapeutic Interventions Therapeutic Interventions Gait Training,Home Exercise Program,Joint Mobilizations, Manual Therapy,Neuromuscular Re-education,Orthotic/ Prosthetic Management,Patient/ Caregiver Education,Self-Care/ Home Management,Soft Tissue Mobilization,Taping, Therapeutic Activities, Therapeutic Exercises Modalities Cold Pack/Ice Massage,Electric Stimulation,Hot Packs, Infrared Therapy,Ultrasound Next Visit Focus/Plan Next Note Type Treatment Note Next Visit Plan Pt has 1 more appt with PT, no further scheduled, please assess add more appts within POC PT/ DIRECTOR MEDICAL AFFAIRS. Next appt: Assess bicep flexibility and Tricep/ rhomboid/LT strengthening to support over head activities for safety loading progression and decrease compensations. POC: work along neural pathway for median n to improve abd. work on abd stability
--- NOTE | 2023-08-15 12:22 | PT.OTN ---
Current Diagnoses Cervicalgia (08/15/23) Incomplete rotator cuff tear or rupture of left shoulder, not specified as traumatic (08/15/23) Abnormal posture (08/15/23) Weakness (08/15/23) Physical Therapy Treatment Note PT-OP-A Visit Information Start: 04/04/23 15:19 Freq: Status: Active Protocol: Document 08/15/23 10:34 [facility] (Rec: 08/15/23 12:22 [facility] [id number]) Out-Patient Physical Therapy Visit Information Visit Information Visit Type Progress Note Visit Note 10/07 2023. Visit Start Time 10:35 Visit Stop Time 11:15 Visit Number 22 Number of WASH OIL PUMP OPERATOR HELPER Visits 0 PT-OP-B Current Condition Start: 04/04/23 15:19 Freq: Status: Active Protocol: Document 04/19/23 10:14 [facility] (Rec: 04/19/23 11:38 [facility] [id number]) Current Condition History of Current Condition Onset Date 03/26 Current Complaints L shoulder arthroscopic debridement and History of Current Condition Pt reports shoulder surgery 06/07. Pt reports she started taking the sling off at home and reached accidently to take chavez and the shoulder was very painful after that. This was about 2 weeks out and she called the doctor and she talked to them. It was keeping her awake at night after this . Hydrocodone did work. Today she hasn't taken one yet. 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 She did PT and that helped the R and the pain is slowly coming back. She also had a MRI from Dr. Topete and there was notable cervical stenosis and in December did injections in her neck. That really helped the neck. 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 She had a scar tissue removal in [facility]. She is pretty much retired at this point d/t pain . next follow up w/ is may 08. Pt has the sling off all day (per MD) at home. She slept w/o it for the first time last night and slept on the couch. She rolled over onto it last night and that did wake her up. Treatment Goals Patient/Caregiver Goals be able to garden, do crafts, get dressed, clean, be able to do her hair, ride a bike and kayak PT-OP-C Subjective Start: 04/04/23 15:19 Freq: Status: Active Protocol: Document 08/15/23 10:34 [facility] (Rec[facility]15[id number] Subjective Patient Comments Patient Comments pt reports still some difficulty w/behind back reaching and when lifting for moving PT-OP-F Manual Assessment Start: 04/04/23 15:19 Freq: Status: Active Protocol: Document 04/19/23 10:14 [facility] (Rec: 04/19/23 11:[id number] Manual Assessments Soft Tissue Assessment Soft Tissue Mobility Assessment 4 good healing incisions; most last one most sensative; all have signfiicant tension Joint Mobility Assessment Joint Mobility Assessment 1st rib on L elevated PT-OP-J Posture/Palpation/Skin Start: 04/04/23 15:19 Freq: Status: Active Protocol: Document 04/19/23 10:14 [facility] (Rec: 04/19/23 11:[id number] Posture Evaluation Comments Posture Comments humerus ant L>R in glenoid; L scap more abd, ant tipped and elevated PT-OP-K Range of Motion Start: 04/04/23 15:19 Freq: Status: Active Protocol: Document 08/15/23 10:34 [facility] (Rec: 08/15/23 12:22 [facility] [id number]) Shoulder Goniometric Range of Motion Shoulder Left Active Flexion 158 Extension 70 Abduction 180 External Rotation at 90 degrees 95 Abduction External Rotation at 0 degrees Abduction 70 Internal Rotation Behind Back (text) T10 Comments pain w/rot PT-OP-M Strength Start: 04/04/23 15:19 Freq: Status: Active Protocol: Document 08/15/23 10:34 [facility] (Rec: 08/15/23 12:22 [facility] [id number]) Shoulder Strength Shoulder Manual Muscle Testing Right Flexion 5 Normal Extension 5 Normal Abduction (C5) 5 Normal External Rotation 5 Normal Internal Rotation 5 Normal Left Flexion 4+ Good+ Extension 5 Normal Abduction (C5) 4- Good- External Rotation 4 Good Internal Rotation 5 Normal Horizontal Abduction 4 Good Horizontal Adduction 5 Normal Comments pain w/abd and ER PT-OP-Q Treatments Start: 04/04/23 15:19 Freq: Status: Active Protocol: Document 08/15/23 10:34 [facility] (Rec: 08/15/23 12:22 [facility] [id number]) Therapeutic Exercises Sidelying Exercises sleeper stretch Side left Reps/Minutes 1 min Standing Exercises biceps/triceps Standing Exercise Name 1. overhead tricep 2. fwd bicep Side left Reps/Minutes 8 ea paloff press Side bilateral Equipment Used orange Reps/Minutes 5 HABD Standing Exercise Name wall walk Side bilateral Resistance L2 Reps/Minutes 20ft ea D2 Flexion Standing Exercise Name reviewed Side left Resistance attemptd w/band, and wts; best w/o wt Equipment Used front mirror for level shld self corrections Reps/Minutes 8 min Comments max cues ER Standing Exercise Name 90/90 Side left Reps/Minutes 10 flex Standing Exercise Name back on wall w/fwd lift to 90 Side bilateral Equipment Used 1# Reps/Minutes 15 Self-Care/Home Management Treatment Education Other Education 8 min:discussion on cont PT to wrok on form and strength further and manual to improve motion; edu to remember scap should move during exercsies throughout motion. Discussed use of mirror. EDu on importance of integration of core w/exercises PT-OP-R Modalities Start: 04/04/23 15:19 Freq: Status: Active Protocol: Document 06/01/23 10:44 SP (Rec: 06/01/23 11:40 SP [id number]) Hot Pack/Cold Pack Treatment MHP R shld Location [place] 06/01/23 Patient Position Hooklying Treatment Duration (minutes) 7 Patient Tolerance Good Comments less pain L shld PT-OP-T Assessment and Plan Start: 04/04/23 15:19 Freq: Status: Active Protocol: Document 08/15/23 10:34 [facility] (Rec: 08/15/23 12:22 [facility] [id number]) Physical Therapy Assessment Goals strength Short Term Goal (STG) Pt will be indep w/HEP 05/14 - Pt reports compliance with HEP. STG Duration achieved advancing as able Marketing Project Specialist Goal (LTG) Pt will score at least 4/5 MMT on LUE to show good strength in order for pt to be able to do typical active lifestyle. 06/04- progressing, <4/5 with abd & flex 07/05-mostly achieved-abd limited 07/23/23: progressing: able complete D2 flexion with 2# DB 08/15-advancing; change goal to at least 4+/5 shoulder strength LTG Duration 09/25 activities Short Term Goal (STG) - STG Duration - Marketing Project Specialist Goal (LTG) Pt will be able to lift and use LUE w/activity w/o inc pain greater than 1/10. LTG Duration 09/25 ROM Short Term Goal (STG) - STG Duration - Marketing Project Specialist Goal (LTG) Pt will be able to have full IR LTG Duration 09/26/23 Quick dash Impairment 75 Short Term Goal (STG) Pt will improve quick dash score to no greater than 50 to show improved functional ability. 06/04- 20.45 STG Duration Met Chcf Goal (LTG) Pt will improve quick dash score to no greater than 20 to show improved functional ability. 06/04- scored 20.45 07/05-no change 07/23/23: improved scored 18.18 (1-19% impaired) LTG Duration achieved to 6 08/15 Assessment Summary Assessment Pt required a lot of cues w/ exercises and was able to improve w/use of mirror. Has dec core integration with use of UE which likey is why she cont to have painw /lifting. Still has mechanical restrictions w/rotations taht cause pain w/AROM. Pt would benefitf rom cont PT to address these deficits and have dec pain w/higher level functions at home. Physical Therapy Plan Frequency and Duration Frequency of Treatment 1x/Week Duration of treatment (weeks) 6 Plan of Care Start Date 08/15/23 Plan of Care End Date 09/26/23 Therapeutic Interventions Therapeutic Interventions Gait Training,Home Exercise Program,Joint Mobilizations, Manual Therapy,Neuromuscular Re-education,Orthotic/ Prosthetic Management,Patient/ Caregiver Education,Self-Care/ Home Management,Soft Tissue Mobilization,Taping, Therapeutic Activities, Therapeutic Exercises Modalities Cold Pack/Ice Massage,Electric Stimulation,Hot Packs, Infrared Therapy,Ultrasound Next Visit Focus/Plan Next Note Type Treatment Note
--- NOTE | 2023-08-15 12:22 | PT.OPPOC ---
Physical, Occupational & Speech Therapy At [facility] Current Diagnoses Cervicalgia (08/15/23) Incomplete rotator cuff tear or rupture of left shoulder, not specified as traumatic (08/15/23) Abnormal posture (08/15/23) Weakness (08/15/23) Visit Care Team Role Provider Type Crispin Reina MD Other Providers Non-Staff Specialty: Orthopedic Surgery Address: [address] [place] [address], [id number] Email: Jeffrey Hawkins DO Family Provider Physician Primary Care Provider Specialty: Family Practice Address: [address] [place] [address], [id number] Email: [email or web address] [employer] Jeffrey Gutierres PA-C Attending Provider Non-Staff Referring Provider Specialty: Medical Address: [address] [place] [address], [id number] Phone: Email: Plan Of Care PT-OP-T Assessment and Plan Start: 04/04/23 15:19 Freq: Status: Active Protocol: Document 08/15/23 10:34 [facility] (Rec: 08/15/23 12:22 [facility] [id number]) Physical Therapy Assessment Goals strength Short Term Goal (STG) Pt will be indep w/HEP 05/14 - Pt reports compliance with HEP. STG Duration achieved advancing as able Alf Goal (LTG) Pt will score at least 4/5 MMT on LUE to show good strength in order for pt to be able to do typical active lifestyle. 06/04- progressing, <4/5 with abd & flex 07/05-mostly achieved-abd limited 07/23/23: progressing: able complete D2 flexion with 2# DB 08/15-advancing; change goal to at least 4+/5 shoulder strength LTG Duration 3/ activities Short Term Goal (STG) - STG Duration - City Distribution Clerk Goal (LTG) Pt will be able to lift and use LUE w/activity w/o inc pain greater than 1/10. LTG Duration 3/ ROM Short Term Goal (STG) - STG Duration - City Distribution Clerk Goal (LTG) Pt will be able to have full IR LTG Duration 09/26/23 Quick dash Impairment 75 Short Term Goal (STG) Pt will improve quick dash score to no greater than 50 to show improved functional ability. 06/04- 20.45 STG Duration Met Alf Goal (LTG) Pt will improve quick dash score to no greater than 20 to show improved functional ability. 06/04- scored 20.45 07/05-no change 07/23/23: improved scored 18.18 (1-19% impaired) LTG Duration achieved to 6 08/15 Assessment Summary Assessment Pt required a lot of cues w/ exercises and was able to improve w/use of mirror. Has dec core integration with use of UE which likey is why she cont to have painw /lifting. Still has mechanical restrictions w/rotations taht cause pain w/AROM. Pt would benefitf rom cont PT to address these deficits and have dec pain w/higher level functions at home. Physical Therapy Plan Frequency and Duration Frequency of Treatment 1x/Week Duration of treatment (weeks) 6 Plan of Care Start Date 08/15/23 Plan of Care End Date 09/26/23 Therapeutic Interventions Therapeutic Interventions Gait Training,Home Exercise Program,Joint Mobilizations, Manual Therapy,Neuromuscular Re-education,Orthotic/ Prosthetic Management,Patient/ Caregiver Education,Self-Care/ Home Management,Soft Tissue Mobilization,Taping, Therapeutic Activities, Therapeutic Exercises Modalities Cold Pack/Ice Massage,Electric Stimulation,Hot Packs, Infrared Therapy,Ultrasound Next Visit Focus/Plan Next Note Type Treatment Note Plan of Care Dates Plan of Care Start Date 08/15/23 Plan of Care End Date 09/26/23 Electronically Signed by: Olivia Schroeder, PT 08/15/23 2905 If you are in agreement with this Plan of Care, please return a signed and dated copy. I have reviewed this Plan of Care and certify that the skilled therapy services above are required to meet the patient?s needs. Physician Signature Date Printed Name and Credentials Clinical Instructor Signature Printed Name and Credentials
--- NOTE | 2023-08-20 11:13 | PT.OTN ---
Current Diagnoses Cervicalgia (08/20/23) Incomplete rotator cuff tear or rupture of left shoulder, not specified as traumatic (08/20/23) Abnormal posture (08/20/23) Weakness (08/20/23) Physical Therapy Treatment Note PT-OP-A Visit Information Start: 04/04/23 15:19 Freq: Status: Active Protocol: Document 08/20/23 10:35 SP (Rec: 08/20/23 11:23 SP [id number]) Out-Patient Physical Therapy Visit Information Visit Information Visit Type Treatment Note Visit Note 2023. Visit Start Time 10:35 Visit Stop Time 11:13 Visit Number total visits, 11/07 2023 Number of TOBACCO PREVENTION HEALTH EDUCATOR Visits 1 PT-OP-B Current Condition Start: 04/04/23 15:19 Freq: Status: Active Protocol: Document 04/19/23 10:14 [facility] (Rec: 04/19/23 11:38 [facility] [id number]) Current Condition History of Current Condition Onset Date 03/26 Current Complaints L shoulder arthroscopic debridement and History of Current Condition Pt reports shoulder surgery 06/07. Pt reports she started taking the sling off at home and reached accidently to take chavez and the shoulder was very painful after that. This was about 2 weeks out and she called the doctor and she talked to them. It was keeping her awake at night after this . Hydrocodone did work. Today she hasn't taken one yet. 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 She did PT and that helped the R and the pain is slowly coming back. She also had a MRI from Dr. Topete and there was notable cervical stenosis and in December did injections in her neck. That really helped the neck. 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 She had a scar tissue removal [place]. She is pretty much retired at this point d/t pain . next follow up w/MD is may 08. Pt has the sling off all day (per MD) at home. She slept w/o it for the first time last night and slept on the couch. She rolled over onto it last night and that did wake her up. Treatment Goals Patient/Caregiver Goals be able to garden, do crafts, get dressed, clean, be able to do her hair, ride a bike and kayak PT-OP-C Subjective Start: 04/04/23 15:19 Freq: Status: Active Protocol: Document 08/20/23 10:35 SP (Rec: 08/20/23 11:23 SP [id number]) OP-PT Subjective Patient Comments Patient Comments Pt reports needs to review sleeper stretch, even though video taped it, challenged performing correctly. PT-OP-F Manual Assessment Start: 04/04/23 15:19 Freq: Status: Active Protocol: Document 04/19/23 10:14 [facility] (Rec: 04/19/23 11:38 [facility] [id number]) Manual Assessments Soft Tissue Assessment Soft Tissue Mobility Assessment 4 good healing incisions; most last one most sensative; all have signfiicant tension Joint Mobility Assessment Joint Mobility Assessment 1st rib on L elevated PT-OP-J Posture/Palpation/Skin Start: 04/04/23 15:19 Freq: Status: Active Protocol: Document 04/19/23 10:14 [facility] (Rec: 04/19/23 11:38 [facility] [id number]) Posture Evaluation Comments Posture Comments humerus ant L>R in glenoid; L scap more abd, ant tipped and elevated PT-OP-K Range of Motion Start: 04/04/23 15:19 Freq: Status: Active Protocol: Document 08/15/23 10:34 [facility] (Rec: 08/15/23 12:22 [facility] [id number]) Shoulder Goniometric Range of Motion Shoulder Left Active Flexion 158 Extension 70 Abduction 180 External Rotation at 90 degrees 95 Abduction External Rotation at 0 degrees Abduction 70 Internal Rotation Behind Back (text) T10 Comments pain w/rot PT-OP-M Strength Start: 04/04/23 15:19 Freq: Status: Active Protocol: Document 08/15/23 10:34 [facility] (Rec: 08/15/23 12:22 [facility] [id number]) Shoulder Strength Shoulder Manual Muscle Testing Right Flexion 5 Normal Extension 5 Normal Abduction (C5) 5 Normal External Rotation 5 Normal Internal Rotation 5 Normal Left Flexion 4+ Good+ Extension 5 Normal Abduction (C5) 4- Good- External Rotation 4 Good Internal Rotation 5 Normal Horizontal Abduction 4 Good Horizontal Adduction 5 Normal Comments pain w/abd and ER PT-OP-Q Treatments Start: 09/20/23 15:19 Freq: Status: Active Protocol: Document 08/20/23 10:35 SP (Rec: 08/20/23 11:23 SP [id number]) Gym Equipment Cable Column (Body Solid) pull down Details under and over hand Resistance 2.5 plates x10, 3 plates x25 Reps/Time stretch last rep Therapeutic Exercises Prone Exercises ball walk out Prone Exercise Name trialed: dynamic UE walking Resistance prone over 65cm tball Reps/Minutes 3 receiprocal stepping then back Comments x4 sets, cued core/slower pacing, distance depending on stability. Sidelying Exercises sleeper stretch Sidelying Exercise Name HEP reviewed Side left Reps/Minutes 1 min Comments tactile cues for Standing Exercises biceps/triceps Standing Exercise Name 1. overhead tricep 2. fwd bicep Side left Resistance 1. AROM> 1# DB 2. 2# DB Reps/Minutes 8 ea Comments cued square shlds HABD Standing Exercise Name wall walk Side bilateral Resistance L2 loop Reps/Minutes 20ft ea direction Comments good muscle tiring burn post L shld D2 Flexion Standing Exercise Name reviewed Side left Resistance best w/o wt Equipment Used front mirror for level shld self corrections Reps/Minutes 8 min Comments max cues no UT, allow abd/ER into sword draw ER Standing Exercise Name 90 abd /90 ER Side left Resistance AROM x3, TB #1 x10 Reps/Minutes 10 Comments tactile cues maintain 90 deg ABD, level shld IR stretch Standing Exercise Name reviewed HEP Side right Resistance LUE assist RUE Equipment Used towel support Reps/Minutes 3 reps x5 breath hold Comments approx T7 Stretch Standing Exercise Name 1. cross body 2. pec doorway 3 . bicep door frame Side left Reps/Minutes 30s Comments good feedback tolerable stretch PT-OP-R Modalities Start: 04/04/23 15:19 Freq: Status: Active Protocol: Document 06/01/23 10:44 SP (Rec: 06/01/23 11:40 SP [id number]) Hot Pack/Cold Pack Treatment MHP R shld Location [facility] [place] 06/01/23 Patient Position Hooklying Treatment Duration (minutes) 7 Patient Tolerance Good Comments less pain L shld PT-OP-T Assessment and Plan Start: 04/04/23 15:19 Freq: Status: Active Protocol: Document 08/20/23 10:35 SP (Rec: 08/20/23 11:23 SP [id number]) Physical Therapy Assessment Goals strength Short Term Goal (STG) Pt will be indep w/HEP 05/14 - Pt reports compliance with HEP. STG Duration achieved advancing as able Subsystems Engineer Goal (LTG) Pt will score at least 4/5 MMT on LUE to show good strength in order for pt to be able to do typical active lifestyle. 06/04- progressing, <4/5 with abd & flex 07/05-mostly achieved-abd limited 07/23/23: progressing: able complete D2 flexion with 2# DB 08/15-advancing; change goal to at least 4+/5 shoulder strength LTG Duration 09/25 activities Short Term Goal (STG) - STG Duration - Subsystems Engineer Goal (LTG) Pt will be able to lift and use LUE w/activity w/o inc pain greater than /10. LTG Duration 09/25 ROM Short Term Goal (STG) - STG Duration - Care Home Goal (LTG) Pt will be able to have full IR LTG Duration 09/26/23 Quick dash Impairment 75 Short Term Goal (STG) Pt will improve quick dash score to no greater than 50 to show improved functional ability. 06/04- 20.45 STG Duration Met Subsystems Engineer Goal (LTG) Pt will improve quick dash score to no greater than 20 to show improved functional ability. 06/04- scored 20.45 07/05-no change 07/23/23: improved scored 18.18 (1-19% impaired) LTG Duration achieved to 6 08/15 Assessment Summary Assessment Pt good effort, requires many cues for level shld no L UT recruitment, most challenging D2 flexion drawing sword while use of mirror improved self correction awarness. She still has mechanics weakness ABD/ ER, improves with tactile cues for LT engagement and elongated posturing including CS retraction. Pt reports no pain, good muscle effort soreness end tx. Physical Therapy Plan Frequency and Duration Frequency of Treatment 1x/Week Duration of treatment (weeks) 6 Plan of Care Start Date 08/15/23 Plan of Care End Date 09/26/23 Therapeutic Interventions Therapeutic Interventions Gait Training,Home Exercise Program,Joint Mobilizations, Manual Therapy,Neuromuscular Re-education,Orthotic/ Prosthetic Management,Patient/ Caregiver Education,Self-Care/ Home Management,Soft Tissue Mobilization,Taping, Therapeutic Activities, Therapeutic Exercises Modalities Cold Pack/Ice Massage,Electric Stimulation,Hot Packs, Infrared Therapy,Ultrasound Next Visit Focus/Plan Next Note Type Treatment Note Next Visit Plan Next appt: continue over head activities for safety loading progression and decrease compensations. POC: work along neural pathway for median n to improve abd. work on abd & ER stability.
--- NOTE | 2023-08-29 13:48 | PT.OTN ---
Current Diagnoses Cervicalgia (08/29/23) Incomplete rotator cuff tear or rupture of left shoulder, not specified as traumatic (08/29/23) Abnormal posture (08/29/23) Weakness (08/29/23) Physical Therapy Treatment Note PT-OP-A Visit Information Start: 04/04/23 15:19 Freq: Status: Active Protocol: Document 08/29/23 13:03 [facility] (Rec: 08/29/23 13:10 [facility] [id number]) Out-Patient Physical Therapy Visit Information Visit Information Visit Type Discharge Summary Visit Note 2023. Visit Start Time 13:05 Visit Stop Time 13:45 Visit Number 24 Number of WOOD CUTTER Visits 0 PT-OP-B Current Condition Start: 04/04/23 15:19 Freq: Status: Active Protocol: Document 04/19/23 10:14 [facility] (Rec: 04/19/23 11:38 [facility] [id number]) Current Condition History of Current Condition Onset Date 03/26 Current Complaints L shoulder arthroscopic debridement and History of Current Condition Pt reports shoulder surgery 06/07. Pt reports she started taking the sling off at home and reached accidently to take chavez and the shoulder was very painful after that. This was about 2 weeks out and she called the doctor and she talked to them. It was keeping her awake at night after this . Hydrocodone did work. Today she hasn't taken one yet. 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 She did PT and that helped the R and the pain is slowly coming back. She also had a MRI from Dr. Topete and there was notable cervical stenosis and in December did injections in her neck. That really helped the neck. 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 She had a scar tissue removal in [facility]. She is pretty much retired at this point d/t pain . next follow up w/ is may 08. Pt has the sling off all day (per MD) at home. She slept w/o it for the first time last night and slept on the couch. She rolled over onto it last night and that did wake her up. Treatment Goals Patient/Caregiver Goals be able to garden, do crafts, get dressed, clean, be able to do her hair, ride a bike and kayak PT-OP-C Subjective Start: 04/04/23 15:19 Freq: Status: Active Protocol: Document 08/29/23 13:03 [facility] (Rec: 08/29/23 13:10 [facility] [id number]) OP-PT Subjective Patient Comments Patient Comments Pt reports the shoulder is feeling good. She has been compliant w/HEP. Can do IR behind back to T7 PT-OP-F Manual Assessment Start: 04/04/23 15:19 Freq: Status: Active Protocol: Document 04/19/23 10:14 [facility] (Rec: 04/19/23 11:38 [facility] [id number]) Manual Assessments Soft Tissue Assessment Soft Tissue Mobility Assessment 4 good healing incisions; most last one most sensative; all have signfiicant tension Joint Mobility Assessment Joint Mobility Assessment 1st rib on L elevated PT-OP-J Posture/Palpation/Skin Start: 04/04/23 15:19 Freq: Status: Active Protocol: Document 04/19/23 10:14 [facility] (Rec: 04/19/23 11:38 [facility] [id number]) Posture Evaluation Comments Posture Comments humerus ant L>R in glenoid; L scap more abd, ant tipped and elevated PT-OP-K Range of Motion Start: 04/04/23 15:19 Freq: Status: Active Protocol: Document 08/15/23 10:34 [facility] (Rec: 08/15/23 12:22 [facility] [id number]) Shoulder Goniometric Range of Motion Shoulder Left Active Flexion 158 Extension 70 Abduction 180 External Rotation at 90 degrees 95 Abduction External Rotation at 0 degrees Abduction 70 Internal Rotation Behind Back (text) T10 Comments pain w/rot PT-OP-M Strength Start: 04/04/23 15:19 Freq: Status: Active Protocol: Document 08/29/23 13:03 [facility] (Rec: 08/29/23 13:45 [facility] [id number]) Shoulder Strength Shoulder Manual Muscle Testing Left Flexion 4+ Good+ Extension 5 Normal Abduction (C5) 5 Normal External Rotation 4+ Good+ Internal Rotation 5 Normal Horizontal Abduction 4+ Good+ Horizontal Adduction 5 Normal Comments pain w/abd and ER PT-OP-Q Treatments Start: 04/04/23 15:19 Freq: Status: Active Protocol: Document 08/29/23 13:03 [facility] (Rec: 08/29/23 13:45 [facility] [id number]) Gym Equipment Cable Column (Body Solid) Rows Details row at 90 Resistance 2 plates Reps/Time 15 pull down Details 15 Resistance 3 plates Reps/Time stretch last rep Therapeutic Exercises Prone Exercises elbow plank Prone Exercise Name trialed in PT off feet/elbows Reps/Minutes 30 sec Comments painfree, good form Sidelying Exercises sideplank Sidelying Exercise Name forearm and knee Side left Reps/Minutes [id number] cues for neutral back Standing Exercises wall push up Standing Exercise Name 1. knee push up w/perfect push up 2. on plinth Side bilateral Reps/Minutes 8 ea Comments cues for neck position D2 Flexion Standing Exercise Name reviewed Side left Resistance best w/o wt Equipment Used 2# then 3# Reps/Minutes 15 ea Self-Care/Home Management Treatment Education Other Education 15 min: Discussed apps and [employer] videos fo doreen to start pt with. Discussed w/pt of use of perfect push up to protect wrists as needed. Discussed w/pt to cont cardio and gradually inc wts. Discussed cont HEP and progressing into normal routine. PT-OP-R Modalities Start: 04/04/23 15:19 Freq: Status: Active Protocol: Document 06/01/23 10:44 [facility] (Rec: 06/01/23 11:40 [facility] [id number]) Hot Pack/Cold Pack Treatment [facility]HP R shld Location [facility] 06/01/23 Patient Position Hooklying Treatment Duration (minutes) 7 Patient Tolerance Good Comments less pain L shld PT-OP-T Assessment and Plan Start: 04/04/23 15:19 Freq: Status: Active Protocol: Document 08/29/23 13:03 [facility] (Rec: 08/29/23 13:10 [facility] [id number]) Physical Therapy Assessment Goals strength Short Term Goal (STG) Pt will be indep w/HEP 05/14 - Pt reports compliance with HEP. STG Duration achieved advancing as able Custodial Goal (LTG) Pt will score at least 4/5 MMT on LUE to show good strength in order for pt to be able to do typical active lifestyle. 06/04- progressing, <4/5 with abd & flex 07/05-mostly achieved-abd limited 07/23/23: progressing: able complete D2 flexion with 2# DB 08/15-advancing; change goal to at least 4+/5 shoulder strength LTG Duration achieved to at least 4+/5 activities Short Term Goal (STG) - STG Duration - Violin Restorer Goal (LTG) Pt will be able to lift and use LUE w/activity w/o inc pain greater than 1/10. LTG Duration achieved 2/14 ROM Short Term Goal (STG) - STG Duration - Violin Restorer Goal (LTG) Pt will be able to have full IR LTG Duration achieved to T7 Quick dash Impairment 75 Short Term Goal (STG) Pt will improve quick dash score to no greater than 50 to show improved functional ability. 06/04- 20.45 STG Duration Met Violin Restorer Goal (LTG) Pt will improve quick dash score to no greater than 20 to show improved functional ability. 06/04- scored 20.45 07/05-no change 07/23/23: improved scored 18.18 (1-19% impaired) LTG Duration achieved to 6 08/15 Assessment Summary Assessment Pt has made excellent progress w/PT and is now indep w/HEP and all ADLs. She is reporting no pain most of the time w/ occ pain only but able to help w/her stretches. She is improved w/form w/exercises and now showing good ROM and strength in L shoulder. DC to HEP at this time d/t meeting all goals. Physical Therapy Plan Discharge Physical Therapy Discharge Reasons Goals Met
== END 2023-09-04 09:24 | disposition home or self-care (01) ==
LOC: PHYS 13:00
PROVIDERS: Absent Provider Family Medicine; Family Provider Family Medicine; PCP Family Medicine; Referring Provider Physician Assistant; Visit Provider Physician Assistant
DX: M75.112 Incomplete rotator cuff tear or rupture of left shoulder, not specified as traumatic (principal); R53.1 Weakness; R29.3 Abnormal posture; M54.2 Cervicalgia
CPT/HCPCS: 97110; 97140; 97162; 97535; 97750